=== PATIENT | male | born 1950 | race Caucasian/White ===

== ENCOUNTER 2024-01-15 09:59 | Inpatient (IN) | payer OTHER ==
[~2024-01-15] VITALS: Ht 144.8 cm; Wt 92.3 kg
[2024-01-15] VITALS (12 sets, daily range): BP systolic 107–169; BP diastolic 52–70
[2024-01-15] MEDS ORDERED: MethylPREDNISolone Sod Succ 125 MG Vial IV ONE (10:25)
[2024-01-15] MEDS ORDERED: Ipratropium/Albuterol SulF 2.5-0.5MG/3 ML Amp INH ONE (10:25)
[2024-01-15] MEDS ORDERED: Albuterol 2.5 MG/3 ML VIAL INH SCH (10:25)
[2024-01-15 10:39] LABS: BASOPHILS ABSOLUTE AUTO 0.09 K/mm3 (0.00-0.23); BASOPHILS PERCENT AUTO 1 % (0-2); EOSINOPHILS ABSOLUTE AUTO 0.06 K/mm3 (0.00-0.68); EOSINOPHILS PERCENT AUTO 0 % (0-6); Hematocrit 54.1 % (37.0-53.0); Hemoglobin 16.9 g/dL (13.5-17.5); IMMATURE GRAN ABSOLUTE AUTO 0.22 K/mm3 (0.00-0.10); IMMATURE GRAN PERCENT AUTO 2 % (0-1); LYMPHOCYTES ABSOLUTE AUTO 1.61 K/mm3 (0.84-5.20); LYMPHOCYTES PERCENT AUTO 11 % (21-46); MONOCYTES ABSOLUTE AUTO 1.59 K/mm3 (0.16-1.47); MONOCYTES PERCENT AUTO 11 % (4-13); Mean Corpuscular HGB 29.2 pg (26.0-34.0); Mean Corpuscular HGB Conc 31.2 g/dL (31.5-36.5); Mean Corpuscular Volume 93 fL (80-100); Mean Platelet Volume 10.4 fL (9.1-12.4); NEUTROPHILS ABSOLUTE AUTO 11.14 K/mm3 (1.96-9.15); NEUTROPHILS PERCENT AUTO 76 % (41-73); NRBC ABSOLUTE 0.06 K/mm3 (0.00-0.02); NRBC Auto 0.4 /100 WBC (0.0-0.2); Platelet Count 291 K/mm3 (150-400); RDW Coefficient Variation 13.4 % (11.7-14.2); RDW Standard Deviation 46.4 fL (35.1-46.3); Red Blood Cell Count 5.79 M/mm3 (4.30-5.90); White Blood Cell Count 14.71 K/mm3 (4.00-11.30)
[2024-01-15 10:49] LABS: PCO2 Venous 55.4 mmHg (38-42); pH Blood Venous 7.38 (7.34-7.37)
[2024-01-15 10:50] LABS: Base Excess Venous 7.5 mmol/L; Bicarbonate Venous 29.1 mmol/L (24.0-30.0)
[2024-01-15 11:14] LABS: Influenza A, PCR NEGATIVE (NEGATIVE); Influenza B, PCR NEGATIVE (NEGATIVE); Resp Syncytial Virus, PCR NEGATIVE (NEGATIVE); SARS-Cov-2 (COVID-19) PCR, MMC NEGATIVE (NEGATIVE)
[2024-01-15] MEDS ORDERED: Azithromycin 500 MG in NS 250 ML IV ONE (11:20)
[2024-01-15] MEDS ORDERED: CefTRIAXone Sodium 1,000 MG in NS 50 ML IV ONE (11:20)
[2024-01-15] MEDS ORDERED: NS 1,000 ML IV SCH (11:25)
[2024-01-15 12:24] LABS: Albumin, Blood 2.6 g/dL (3.4-5.0); Albumin/Globulin Ratio 0.6 (0.8-1.8); Bilirubin, Total 0.4 mg/dL (0.1-1.0); Bun/Creatinine Ratio 51.2 (12.0-20.0); Calcium, Blood 8.7 mg/dL (8.5-10.1); Creatinine, Blood 0.65 mg/dL (0.60-1.20); Globulin, Blood 4.3 g/dL (2.2-4.0); Magnesium, Blood 2.3 mg/dL (1.6-2.4); Potassium, Blood 4.3 mmol/L (3.5-5.5); Total Protein, Blood 6.9 g/dL (6.4-8.2)
[2024-01-15] MEDS ORDERED: Albuterol 2.5 MG/3 ML VIAL INH PRN (12:50)
[2024-01-15] MEDS ORDERED: Ipratropium/Albuterol SulF 2.5-0.5MG/3 ML Amp INH SCH (12:50)
[2024-01-15] MEDS ORDERED: Acetaminophen 325 MG TABLET PO PRN (12:50)
[2024-01-15] MEDS ORDERED: Ampicillin Sod/Sulbactam Sod 3 GM in NS 100 ML IV SCH (13:00)
[2024-01-15] MEDS ORDERED: Lactated Ringer's 1,000 ML IV SCH (13:00)
--- NOTE | 2024-01-15 13:41 | NUR ---
REPORT RECIEVED FROM ED NURSE ERIK AT 1340.
[2024-01-15] MEDS ORDERED: METF500 PO (14:04)
[2024-01-15] MEDS ORDERED: ATOR20 PO (14:05)
[2024-01-15] MEDS ORDERED: LISI20 PO (14:05)
[2024-01-15] MEDS ORDERED: TAMS.4ER PO (14:06)
[2024-01-15] MEDS ORDERED: FURO40 PO (14:07)
[2024-01-15] MEDS ORDERED: Vitamin D1000 UNI1 PO (14:07)
[2024-01-15] MEDS ORDERED: ALBU90OI INH (14:08)
[2024-01-15 14:14] LABS: Base Excess Venous 5.1 mmol/L; Bicarbonate Venous 26.1 mmol/L (24.0-30.0); PCO2 Venous 74 mmHg (38-42); pH Blood Venous 7.24 (7.34-7.37)
--- NOTE | 2024-01-15 14:31 | NUR ---
ARRIVAL TO PCU patient arrived to pcu at 1358 and color finisher in room transporting to pcu bed. patient is alert and oriented x4. perrla. patient denies chest pain/pressure, pain, or shortness of breath. patient on 11l oxymizer with spo2 >90%. tele sinus tach 110-120s. patient vbg came back and was critically high ph at 7.24. this rn called md haley, orders being placed. this rn did admit and med rec. this rn informed primary rn, val landin, of updates while he was on lunch.
--- NOTE | 2024-01-15 15:58 | NUR ---
THIS RN TO PT ROOM AT 1540 D/T PT OFF TELE. UPON ENTERNING ROOM PT WAS ALREADY IN BATHROOM WITH IV PUMP SITTING JUST OUTSIDE OF DOOR. PT'S O2 WAS SITTING ON FLOOR JUST OUT SIDE OF BATHROOM. URINE NOTED TO BE ON FLOOR TRAILING FROM FAR SIDE OF ROOM TO BATHROOM. PT ASKED IF HE WAS OK, PT ANSWERED "YEAH, I JUST NEEDED TO GO TO THE BATHROOM." PT REMINDED THAT HE NEEDED TO CALL FOR ASSISTANCE WHEN GETTING UP TO HELP MANAGE OXYGEN LINES AND IV LINES. PT RESPONDED "OH YEAH, SORRY. I HAD TO GO." OXYGEN TRANSPORT NURSE APPLIED AND O2 REAPPLIED TO PT ALONG WITH SPO2 MONITOR. ON MONITOR PT SATS IN THE HIGH 40'S, PT REPORTED SLIGHT SOB JSUT BEFORE O2 WAS REAPPLIED. ENVIRONMENTAL SERVICES CONTACTED TO CLEAN UP FLOOR. PT EDUCATED AGAIN ON FALL RISKS AND THAT HE NEEDS TO CALL FOR ASSISTNCE IN ROOM, PT VERBALIZED UNDERSTANDING. EDUCATIONAL RESOURCE COORDINATOR IN DOOR WAY WAITING FOR TO CALL FOR ASSISTANCE. THIS RN NOTIFIED BY GUEST SPECIALIST THAT PT SATS DOWN TO HIGH 70'S AND STILL OFF TELE. THIS RN TO PT ROOM TO ASSESS AGAIN AT 1658. PT STILL SITTING ON TOILET. O2 AGAIN SITTING ON GROUND AND TELE BOW WITH STICKERS SITTING ON FLOOR. PT INSTRUCTED TO KEEP O2 ON AND INFORMED PT THAT HE WILL NEED T KEEP TELE BOX AND STICKERS ON TO MONITOR PT'S HEART. PT AGAIN VERBALIZED UNDERSTANDING. EDUCATIONAL RESOURCE COORDINATOR INFORMED THAT PT WAS INSTRUCTED TO USE PULL STRING IN BATHROOM AND ASKED EDUCATIONAL RESOURCE COORDINATOR TO REMAIN IN PT ROOM.
--- NOTE | 2024-01-15 17:20 | NUR ---
UPDATE AT ROUGHLY 1700, PT SATS DOWN TO 70'S. WALTER RN IN PT ROOM AND INCREASED OXYMIZER TO 15L, SATS REMAINED IN 70'S. RN NOTIFIED THIS RN. THIS RN TO ROOM. PT REPOSITIONED AND RT CONTACTED FOR BIPAP RT TO ROOM NON-REBREATHER BEING APPLIED. RT SETUP BIPAP FOR PT AND APPLIED, SATS UP TO THE 90'S WITH BIPAP SETTINGS 14/6 80%.
[2024-01-15] MEDS ORDERED: MethylPREDNISolone Sod Succ 125 MG Vial IV SCH (18:00)
--- NOTE | 2024-01-15 18:06 | NUR ---
NOTIFIED OF THIS RN'S PREVIOUS NOTES STATING PT HAS BEEN IMPUSLIVE AND PULLING OFF OXYGEN. MD NOTIFIED THAT PT HAS BEEN PLACED ON BIPAP BUT AALSO HAS BECOME MORE CONFUSED AND PULLING BIPAP OFF AFTER TELLING STAFF THEY CAN REAPPLY BIPAP. TO SEE PT BEFORE SHIFT CHANGE.
--- NOTE | 2024-01-15 18:54 | NUR ---
PT GIVEN ONE TIME DOSE ATIVAN AND GIVEN 1800 MEDS PER ODER. PT ABLE REST AFTER RECIEVING ATIVAN AND HAS KEPT NON-REBREATHER ON AT THIS TIME.
[2024-01-15] MEDS ORDERED: LORazepam 2 MG/ML 1ML Injection IV PRN (19:00)
[2024-01-15] MEDS ORDERED: LORazepam 2 MG/ML 1ML Injection IV ONE ×2 (19:00→21:40)
[2024-01-15] MEDS ORDERED: Lactobacil 2-S.Thermo-Bifido 1 1 Cap PO SCH (21:00)
--- NOTE | 2024-01-15 21:45 | NUR ---
PT TRANSFER TO ICU PATIENT NONCOMPLIANT WITH BIPAP, DESATTING TO LOW 80'S. GETTING COMBATIVE WITH STAFF WE ATTEMPTED TO MAINTAIN CONTINUOUS MONITORING AND BIPAP. PATIENT APPEARS CYANOTIC WITH FINGERS, EARS, AND LIPS TURNING PURPLE. REPORT CALLED TO VENTURA IN ICU AND PATIENT MOVED TO ICU 10. IS AT BEDSIDE, UPDATED TO SITUATION BY RN.
[2024-01-15] MEDS ORDERED: Albuterol 2.5 MG/3 ML VIAL INH ONE (22:00)
[2024-01-15 22:03] LABS: PCO2 Arterial > 105 mmHg (35-45); pH Blood Arterial 7.17 (7.35-7.45)
--- NOTE | 2024-01-15 22:44 | NUR ---
PATIENT TO ICU 10 FROM PCU 11 AT 2126. PATIENT COMBATIVE, SWINGING AT STAFF, CONFUSED AND APPEARS HYPOXIC, FACE, EARS AND FINGERS ARE PURPLE. SP02 90% ON 15L NRB, LS COARSE IN RIGHT SIDE AND DIM IN THE LEFT SIDE. CHEST X-RAY DONE. NEW IV STARTED. PATIENT MEDICATED FOR AGITATION, ATIVAN GIVEN AND PRECEDEX STARTED. PATIENT NOW SEDATED AND ON BIPAP. ABG DONE AND CRITICALS CALLED TO HOSPITALIST. PATIENT INCONTINENT OF BLADDER ATTENDS IN PLACE. AT BEDSIDE.
[2024-01-15] MEDS ORDERED: NS 250 ML IV PRN (22:55)
[2024-01-16] VITALS (41 sets, daily range): BP systolic 90–179; BP diastolic 39–157
[2024-01-16 00:19] LABS: PCO2 Venous 85.9 mmHg (38-42); pH Blood Venous 7.25 (7.34-7.37)
[2024-01-16 00:20] LABS: Base Excess Venous 10.2 mmol/L; Bicarbonate Venous 29.8 mmol/L (24.0-30.0)
[2024-01-16] MEDS ORDERED: Piperacillin/Tazobactam Sod 3.375 GM in NS 100 ML IV SCH ×2 (00:45→07:00)
[2024-01-16] MEDS ORDERED: Ipratropium/Albuterol SulF 2.5-0.5MG/3 ML Amp INH SCH (02:20)
[2024-01-16 04:50] LABS: Base Excess Venous 11.2 mmol/L; Bicarbonate Venous 31.3 mmol/L (24.0-30.0); PCO2 Venous 75.6 mmHg (38-42)
[2024-01-16 04:57] LABS: BASOPHILS ABSOLUTE AUTO 0.05 K/mm3 (0.00-0.23); BASOPHILS PERCENT AUTO 0 % (0-2); EOSINOPHILS ABSOLUTE AUTO 0.04 K/mm3 (0.00-0.68); EOSINOPHILS PERCENT AUTO 0 % (0-6); Hematocrit 47.8 % (37.0-53.0); Hemoglobin 14.7 g/dL (13.5-17.5); IMMATURE GRAN ABSOLUTE AUTO 0.25 K/mm3 (0.00-0.10); IMMATURE GRAN PERCENT AUTO 2 % (0-1); LYMPHOCYTES ABSOLUTE AUTO 0.76 K/mm3 (0.84-5.20); LYMPHOCYTES PERCENT AUTO 6 % (21-46); MONOCYTES ABSOLUTE AUTO 0.98 K/mm3 (0.16-1.47); MONOCYTES PERCENT AUTO 7 % (4-13); Mean Corpuscular HGB 29.3 pg (26.0-34.0); Mean Corpuscular HGB Conc 30.8 g/dL (31.5-36.5); Mean Corpuscular Volume 95 fL (80-100); Mean Platelet Volume 10.2 fL (9.1-12.4); NEUTROPHILS ABSOLUTE AUTO 11.41 K/mm3 (1.96-9.15); NEUTROPHILS PERCENT AUTO 85 % (41-73); NRBC ABSOLUTE 0.05 K/mm3 (0.00-0.02); NRBC Auto 0.4 /100 WBC (0.0-0.2); Platelet Count 255 K/mm3 (150-400); RDW Coefficient Variation 13.4 % (11.7-14.2); RDW Standard Deviation 47.5 fL (35.1-46.3); Red Blood Cell Count 5.01 M/mm3 (4.30-5.90); White Blood Cell Count 13.49 K/mm3 (4.00-11.30)
--- NOTE | 2024-01-16 05:13 | NUR ---
SHIFT SUMMARY PATIENT ALERT AND ORIENTED X4 NOW, WEARING BIPAP AND COMPLIANT. GIVEN A BREAK FROM BIPAP FOR A DRINK OF WATER AND MAINTAINED SP02 97%. BIPAP 11/03 FI02 70% RATE 22. LS DIM IN LEFT LUNG. HR SR 80s, BP STABLE. CONTINENT OF URINE, UA SENT. TITRATING PRECEDEX DOWN. CALL LIGHT IN REACH
[2024-01-16 05:25] LABS: Albumin, Blood 2.2 g/dL (3.4-5.0); Albumin/Globulin Ratio 0.6 (0.8-1.8); Bilirubin, Total 0.2 mg/dL (0.1-1.0); Bun/Creatinine Ratio 44.2 (12.0-20.0); Calcium, Blood 8.4 mg/dL (8.5-10.1); Creatinine, Blood 0.7 mg/dL (0.60-1.20); Globulin, Blood 3.8 g/dL (2.2-4.0); Magnesium, Blood 2.3 mg/dL (1.6-2.4); Potassium, Blood 4.9 mmol/L (3.5-5.5); Thyroid Stimulating Hormone 0.346 uIU/mL (0.360-4.800)
[2024-01-16] MEDS ORDERED: Azithromycin 500 MG in NS 250 ML IV SCH (09:00)
[2024-01-16] MEDS ORDERED: Enoxaparin 40 MG/0.4 ML SYR SC SCH (09:00)
[2024-01-16] MEDS ORDERED: Multivitamins-Minerals Liquid 15 ML Oral Syringe PO SCH (16:15)
[2024-01-16] MEDS ORDERED: Thiamine HCl 100 MG Tab PO SCH (16:15)
--- NOTE | 2024-01-16 17:11 | NUR ---
SHIFT SUMMARY PT DID WELL THROUGHOUT THE SHIFT. PT HAS REMAINED AWAKE, ALERT, AND ORIENTED. PT HAS REMAINED OFF BIPAP ON HIFLOW NC MOST OF THIS SHIFT. HIFLOW NC TITRATED DOWN TO 7L 02 AT THIS TIME. PT DENIES SOB AT REST. VITAL SIGNS HAVE REMAINED STABLE. PT TAKING IN MORE PO INTAKE THROUGHOUT THE DAY WITH IMPROVED APPETITE. PG TO LAWANDA C/D/I WITH NS INFUSING TKO. PT WITH ATTENDS IN PLACE, BUT IS ABLE TO USE URINAL TO VOID WITH ASSISTANCE. PT ABLE TO SHIFT SELF IN BED FOR COMFORT. PT SPOUSE AT BEDSIDE MOST OF THIS SHIFT. WILL CONTINUE TO MONITOR AND REPORT OFF TO ONCOMING RN.
[2024-01-16] MEDS ORDERED: Atorvastatin 10 MG Tab PO SCH (21:00)
[2024-01-17] VITALS (16 sets, daily range): BP systolic 115–157; BP diastolic 52–111
[2024-01-17 04:23] LABS: Hematocrit 45.5 % (37.0-53.0); Hemoglobin 14.2 g/dL (13.5-17.5); Mean Corpuscular HGB 29.7 pg (26.0-34.0); Mean Corpuscular HGB Conc 31.2 g/dL (31.5-36.5); Mean Corpuscular Volume 95 fL (80-100); Mean Platelet Volume 10.3 fL (9.1-12.4); NRBC ABSOLUTE 0.03 K/mm3 (0.00-0.02); NRBC Auto 0.2 /100 WBC (0.0-0.2); Platelet Count 265 K/mm3 (150-400); RDW Coefficient Variation 13.4 % (11.7-14.2); RDW Standard Deviation 46.9 fL (35.1-46.3); Red Blood Cell Count 4.78 M/mm3 (4.30-5.90); White Blood Cell Count 16.63 K/mm3 (4.00-11.30)
[2024-01-17 04:47] LABS: Magnesium, Blood 2.3 mg/dL (1.6-2.4)
[2024-01-17 04:48] LABS: Bun/Creatinine Ratio 43.7 (12.0-20.0); Calcium, Blood 8.7 mg/dL (8.5-10.1); Creatinine, Blood 0.71 mg/dL (0.60-1.20); Phosphorus, Blood 2.5 mg/dL (2.5-4.9); Potassium, Blood 4.9 mmol/L (3.5-5.5)
[2024-01-17 05:18] LABS: PCO2 Arterial 61.7 mmHg (35-45); PO2 Arterial 78.8 mmHg (80-100); pH Blood Arterial 7.39 (7.35-7.45)
--- NOTE | 2024-01-17 05:43 | NUR ---
SHIFT SUMMARY ASSUMED CARE OF PT AT 1900. PT IS A/OX4. HEART OUNDS REGULAR. LUNG SOUNDS WHEEZES AND TIGHT. PT ON 7L HIGH FLOW. PT EDUCATED ABOUT WEARING BIPAP MASK T/O THE NOC. PT AGREED TO WEARING MASK BUT TOOK A BREAK FROM 0230 TO 0400. PT USED URINAL IN BED. CAN REPOSITION SELF. NO ACUTE EVENTS.
[2024-01-17] MEDS ORDERED: Omeprazole 20 MG CapCR PO SCH (06:00)
[2024-01-17] MEDS ORDERED: Nicotine 14 MG PATCH TOP SCH (09:00)
[2024-01-17] MEDS ORDERED: Furosemide 40 MG Tab PO SCH (09:00)
[2024-01-17] MEDS ORDERED: Lisinopril 20 MG Tab PO SCH (09:00)
[2024-01-17] MEDS ORDERED: Cholecalciferol 1000 Unit Tablet (=25MCG) PO SCH (09:00)
[2024-01-17] MEDS ORDERED: Tamsulosin HCl 0.4 MG Cap PO SCH (09:00)
--- NOTE | 2024-01-17 10:21 | NUR ---
CARE NOTE PT IS ALERT AND ORIENTED X 4. SPO2 CURRENTLY MAINTAINED >95% VIA 8L HFNC. WHEN THIS RN WENT INTO ROOM AT APPROX. 1020, PT APPEARED TO BE SLEEPING. THIS RN ENCOURAGED PT TO WEAR BIPAP WHILE SLEEPING BUT HE DECLINED TO DO SO. THIS RN EDUCATED PT AND HIS SPOUSE REGARDING IMPORTANCE OF WEARING BIPAP WHILE SLEEPING AND HE WAS AGREEABLE TO WEARING BIPAP FOR NOC USE. CALL LIGHT IS W/IN REACH.
--- NOTE | 2024-01-17 13:25 | NUR ---
assumption of care patient arrived while this rn was on lunch and break nurse aubrey el settled the patient into the room. patient is alert and oriented x4. neuro is intact. perrla. denies pain,chest pain/pressure or shortness of breath at rest. endorses shortness of breath with exertion. see shift assessment for further detials. vital signs stable. tele sinus rhythm 90s. oriented to room and call light. denies any needs at this time
--- NOTE | 2024-01-17 18:34 | NUR ---
shift summary patient neuro remains inact. vital remain stable. no acute changes. plan of care remains up to date.
[2024-01-18 03:39] LABS: Hematocrit 47.9 % (37.0-53.0); Mean Corpuscular HGB 29.4 pg (26.0-34.0); Mean Corpuscular HGB Conc 31.3 g/dL (31.5-36.5); Mean Corpuscular Volume 94 fL (80-100); Mean Platelet Volume 10.1 fL (9.1-12.4); NRBC ABSOLUTE 0.02 K/mm3 (0.00-0.02); NRBC Auto 0.1 /100 WBC (0.0-0.2); Platelet Count 277 K/mm3 (150-400); RDW Coefficient Variation 13.2 % (11.7-14.2); RDW Standard Deviation 45.8 fL (35.1-46.3); Red Blood Cell Count 5.11 M/mm3 (4.30-5.90); White Blood Cell Count 16.18 K/mm3 (4.00-11.30)
[2024-01-18 03:57] LABS: Magnesium, Blood 2.4 mg/dL (1.6-2.4)
[2024-01-18 03:58] LABS: Bun/Creatinine Ratio 50.8 (12.0-20.0); Calcium, Blood 8.8 mg/dL (8.5-10.1); Creatinine, Blood 0.73 mg/dL (0.60-1.20); Phosphorus, Blood 3.2 mg/dL (2.5-4.9); Potassium, Blood 5.3 mmol/L (3.5-5.5)
[2024-01-18 04:00] VITALS: BP 144/73
--- NOTE | 2024-01-18 05:12 | NUR ---
SHIFT SUMMARY ASSUMED CARE OF PT AT 1900. PT IS A/OX4. HEART SOUNDS REGULAR. LUNG SOUNDS DIMINISHED AND COURSE AT BASES. PT WORE 7L NC T/O THE NOC AND WORE BIPAP FROM 2129- 299. PT USED URINAL IN BED. PT REPOSITIONED SELF. PT HAD NO NEW COMPLAINTS AND SLEPT T/O THE NOC
[2024-01-18 07:32] VITALS: BP 161/70
--- NOTE | 2024-01-18 10:47 | NUR ---
DR. KULKARNI AT BEDSIDE AND SHOWED THE PT'S VERY DARK GREEN-BLACK LOOSE STOOLS. HGB & HCT STABLE. WE WILL CONTINUE TO MONITOR H&H. NO FURTHER ORDERS AT THIS TIME .
[2024-01-18 11:34] VITALS: BP 143/63
[2024-01-18 15:15] VITALS: BP 154/64
--- NOTE | 2024-01-18 16:20 | NUR ---
SHIFT SUMMARY THE PT IS A&OX4, CALLS APPROPRIATELY, AND CAN MAKE HIS NEEDS KNOWN. THE PT IS A Q2 TURN, 1P TX W/ GB AND FWW, AND HE HAS BEEN ABLE TO GET UP TO THE CHAIR AND BSC TODAY. HE IS ABLE TO USE THE URINAL AT BEDSIDE, BUT IS HAVING SOME ACCIDENTS WITH STOOLS. HIS STOOL IS A DARK BLACK-GREEN COLOR AND LOOSE. DR. KULKARNI AWARE. ON TELE HE HAS BEEN SR 80'S-90'S, BP STABLE. HE HAS BEEN TITRAITED FROM 7L HFNC TO 3-4L NC. WHEN THE PT WORKED WITH PHYSICAL THERAPY HE DID DESATURATE TO 85% BUT WAS ABLE TO RECOVER AFTER ABOUT 10 SEC'S. THE PT STATES HE IS FEELING ALOT BETTER THEN HE HAS, AND SEE GREAT IMPROVEMENT FROM YESTERDAY. NO ACUTE EVENTS. SEE NOTES FOR UPDATES.
[2024-01-18 21:05] VITALS: BP 147/65
--- NOTE | 2024-01-18 22:22 | NUR ---
ASSUMPTION OF CARE: PATIENT IS ALERT ADN ORIENTED X 4, ABLE TO MAKE NEEDS KNOWN, COOPERATIVE, PLEASANT. REPOSITIONED, INFUSING TKO TO POWERGLIDE. SPO2 88 - 93 ON 3L VIA NC, RESISTENT TO WEAR BIPAP AT THIS TIME, NONPRODUCTIVE COUGH NOTED. DAY RN SENT SPUTUM SAMPLE. PATIENT AFEBRIE VSS, DENIES CHEST PAIN PRESSURE OR INCREASED SOB AT REST. NO ACUTE CONCERNS. DID EDUCATE ABOUT CODE STATUS AND TREATMENTS ENTAILED. PATIENT ENDORSES FULL CODE STATUS.
[2024-01-18 23:18] VITALS: BP 164/59
[2024-01-19 03:12] VITALS: BP 146/77
[2024-01-19 03:58] LABS: Hematocrit 44.1 % (37.0-53.0); Hemoglobin 14.1 g/dL (13.5-17.5); Mean Corpuscular HGB 29.9 pg (26.0-34.0); Mean Corpuscular Volume 93 fL (80-100); Mean Platelet Volume 10.5 fL (9.1-12.4); Platelet Count 276 K/mm3 (150-400); RDW Coefficient Variation 13.2 % (11.7-14.2); RDW Standard Deviation 45.2 fL (35.1-46.3); Red Blood Cell Count 4.72 M/mm3 (4.30-5.90); White Blood Cell Count 16.52 K/mm3 (4.00-11.30)
[2024-01-19 04:17] LABS: Bun/Creatinine Ratio 49.3 (12.0-20.0); Calcium, Blood 8.4 mg/dL (8.5-10.1); Creatinine, Blood 0.67 mg/dL (0.60-1.20); Potassium, Blood 4.3 mmol/L (3.5-5.5)
--- NOTE | 2024-01-19 06:24 | NUR ---
EOS: CHANGES FROM ASSUMPTION PATIETN IS NOW ON 4L AFTER REPOSITIONING, ATTENDS AND GOWN CHANGE. PATIETN WITH DARK GREEN BM, AND WHAT APPEARED TO BE SOME MINOR BLADDER DISTENTION, BLADDER SCAN REVEALED APPROXIMATELY 364. PATIENT HAS BEEN VOIDING 100-150 AT A TIME, KNOWN BPH. WILL PASS ON TO DAY RN. EDUCATED ABOUT POTENTIAL NEED FOR ALTERNATIVE URINATING, HE HE HAS BEEN USING URINAL IN THE BED. PATIENT DOES NOT FEEL INCREASED SOB. SOME MINOR SHAKINESS NOTED.
[2024-01-19 07:37] VITALS: BP 148/67
[2024-01-19] MEDS ORDERED: PredniSONE 20 MG Tab PO SCH (09:00)
[2024-01-19] MEDS ORDERED: Ventolin5 MG/1 ML INH (11:34)
[2024-01-19] MEDS ORDERED: MULTIVITAM12 MG/15 M PO (11:39)
[2024-01-19] MEDS ORDERED: PROBIOTIC1 EA13 PO (11:40)
[2024-01-19] MEDS ORDERED: B-1100 MG PO (11:40)
[2024-01-19] MEDS ORDERED: AMOCLA875 PO (11:41)
[2024-01-19] MEDS ORDERED: Prednisone10 MG PO (11:42)
[2024-01-19 12:41] VITALS: BP 125/57
[2024-01-19 15:44] VITALS: BP 151/70
--- NOTE | 2024-01-19 17:16 | NUR ---
SHIFT SUMMARY: PT HAS BEEN A&Ox4, COOPERATIVE W/CARE, ABLE TO MAKE NEEDS KNOWN. PT DENIES SOB AT REST. O2 SATS >89% ON 3 L/MIN VIA NC AT REST, 6 L/MIN FOR ACTIVITY. PT ENDORSES DYSPNEA W/EXERTION. PT DENIES CP, SR ON MONITOR W/RATE MOSTLY 80s. PT WORKS W/PT TODAY, HAS GOTTEN UP TO CHAIR FOR MEAL. PT HAS BEEN VOIDING IN URINAL OR BSC. ONE EPISODE OF LOOSE DARK BROWN/GREEN STOOL, PT DENIES CHANGE FROM YESTERDAY'S STOOL, PROVIDER AWARE. AT THIS TIME, PLAN IS FOR DISCHARGE HOME, WAITING FOR HOME O2 ORDER APPROVAL AND DELIVERY. IV ABX CONTINUE TO INFUSE PER ORDERS. PT RESTING IN BED W/CALL LIGHT IN REACH. WILL CONTINUE TO MONITOR AND TREAT ACCORDINGLY UNTIL CHANGE OF SHIFT.
[2024-01-19] MEDS ORDERED: Ipratropium/Albuterol SulF 2.5-0.5MG/3 ML Amp INH SCH (17:35)
[2024-01-19 20:39] VITALS: BP 157/72
[2024-01-20 00:31] VITALS: BP 158/73
[2024-01-20 04:38] VITALS: BP 154/84
--- NOTE | 2024-01-20 06:21 | NUR ---
End of shift note Pt is pleasant and cooperative with care. Pt has rested well overnight. Pt has refused BiPAP. Pt remains on 3L O2 at rest. Pt reports that he still feels weak but feels like he would be able to manage with family when he goes home. Pt is able to make needs known, call light is within reach.
[2024-01-20 07:48] VITALS: BP 149/81
[2024-01-20 15:35] VITALS: BP 158/70
--- NOTE | 2024-01-20 17:49 | NUR ---
SHIFT SUMMARY: PT A&O X4. PLEASANT AND COOPERATIVE WITH CARE. PT C/O 7/10 PAIN IN LOWER BACK THIS AM AND AFTERNOON. PRN TYLENOL EFFECTIVE FOR PAIN MANAGEMENT. CASE MANAGEMENT REACHED OUT TO DC FOR HOME 02 AND NEB TREATMENTS. PLAN FOR PT TO FINAL CIGAR AND BOX EXAMINER 02 TANK FROM DC TOMORROW AND BRING TO HOSPITAL. PT WILL THEN HAVE APPOINTMENT AT DC AROUND 1300 TO 02 EDUCATION. PT CURRENTLY ON 3L MAINTAINING SATS >90%. IV ABX INFUSING W/O COMPLICATIONS. CALL LIGHT IN REACH. BED IN LOWEST POSITION.
[2024-01-20 19:19] VITALS: BP 151/65
--- NOTE | 2024-01-20 20:42 | NUR ---
ASSUMPTION OF CARE AFTER RECEIVING REPORT FROM DAY RN, THIS RN ASSUMED CARE AT APPROX 1915. PATIENT ALERT AND ORIENTED X4. PERRLA. MOVES ALL EXTREMITIES WITH GENERALIZED WEAKNESS T/O. IS A ONE PERSON ASSIST WITH FWW. TREMOR TO BUE - REPORTS BASELINE. TELEMETRY SHOWING SINUS TACH 100s. BP STABLE. DENIES CHEST PAIN, PRESSURE. ON 3L VIA NC, SATs >90%. DENIES SHORTNESS OF BREATH AT REST, RESPIRATIONS EVEN, UNLABORED. REPORTS 6/10 LOWER BACK PAIN - MEDICATED PER EMAR WITH PO TYLENOL. REPOSITIONS HIMSELF INDEPENDENTLY IN BED. USES URINAL INDEPENDENTLY. CALL LIGHT IN REACH.
--- NOTE | 2024-01-21 03:46 | NUR ---
REPORT GIVEN TO BENJI MCFARLAND TO ASSUME CARE ON MEDICAL FLOOR
--- NOTE | 2024-01-21 04:00 | NUR ---
ASSUMPTION OF CARE. PT TRANSFERED FROM PCU TO MEDICAL ROOM 341. PT ORIENTED TO ROOM AND DENIES CONCERNS AT THIS TIME. REPORT RECEIVED PRIOR TO ARRIVAL FROM ZARINA León RN. CALL LIGHT IN REACH.
[2024-01-21 04:14] VITALS: BP 164/81
[2024-01-21 07:22] VITALS: BP 159/81
--- NOTE | 2024-01-21 08:03 | NUR ---
CALL FROM TELE: PT HAD SHORT RUN OF SVT IN 150s. PRIMARY RN NOTIFIED.
--- NOTE | 2024-01-21 08:15 | NUR ---
SHIFT SUMMARY NOC. PT A/O X4. PT ON 3 L VIA N/C. PT VOIDING SMALL AMOUNTS OF URINE. PT ON TELEMETRY. DENIES SOB OR CP. PT RESTING WITH CALL LIGHT IN REACH.
[2024-01-21] MEDS ORDERED: AMOCLA875 PO (11:11)
[2024-01-21 11:15] LABS: Magnesium, Blood 2.4 mg/dL (1.6-2.4)
[2024-01-21 11:16] LABS: Phosphorus, Blood 2.3 mg/dL (2.5-4.9)
[2024-01-21] MEDS ORDERED: K-Phos Origina500 MG PO (12:09)
[2024-01-21] MEDS ORDERED: Potassium Phosphate,Monobasic 500 MG Tablet PO STA (12:28)
--- NOTE | 2024-01-21 12:51 | NUR ---
SHIFT/DISCHARGE SUMMARY: PATIENT A/OX4, PLEASANT AND COOPERATIVE c CARE. PATIENT DENIES CP/PRESSURE, SOB, N/V AND DIZZINESS. AT AROUND 0700 PATIENT HAD OT EPISODE OF SVT HR 150'S-160'S BPM AND BOUNCED BACK TO 80'SBPM, DR. KULKARNI NOTIFIED WITH THIS ISSUE. PATIENT HAS NO EPISODE ON TELE SINCE THEN, SR HR IN THE 80'S-90'S BPM. PATIENT ON 3L O2 VIA NC c SPO2 ABOVE 90%. PATIENT HAS GREAT APPETITE, CONTINENT OF BOWEL/BLADDER, USES URINAL IN BED AND 1 ASSIST/FWW TO BSC. PATIENT WORK c OT THIS AM, DID WELL. PIV AND POWERGLIDE DC'D. PATIENT DISCHARGE HOME c HH SERVICES. DISCHARGE INSTRUCTIONS PACKET GIVEN TO PATIENT. EDUCATE PATIENT/SPOUSE AT BEDSIDE REGARDING ADMITTING DX'S OF ACUTE RESP FAILURE, S/S, TX, NEW PRESCRIBED RX, HOME O2, AND TO F/U c PCP. PATIENT AND SPOUSE VERBALIZED UNDERSTANDING AND NO FURTHER QUESTIONS. RX WAS FAXED TO [facility]IENT [facility]. ALL PATIENT PERSONAL BELONGINGS WERE SENT HOME c THE PATIENT. PATIENT LEFT THE ROOM AT 1228 AND WAS TRANSPORTED VIA WHEELCHAIR BY [facility] TO PATIENT ENTRANCE.
== END 2024-01-21 12:28 | disposition home health service (06) | DRG 871 ==
LOC: ER 09:59 → ICUE 12:44 → PCU 12:44 → ICUE 21:33 → PCU 01-17 12:54 → MEDS 01-21 03:53
PROVIDERS: Internal Medicine; Nurse Practitioner Acute Care; Student in an Organized Health Care Education/Training Program; ADMIT Student in an Organized Health Care Education/Training Program
PROC: 4A133R1 Monitoring of Arterial Saturation, Peripheral, Percutaneous Approach (ICD-10-PCS; principal; 2024-01-15)
PROC: 3E03329 Introduction of Other Anti-infective into Peripheral Vein, Percutaneous Approach (ICD-10-PCS; 2024-01-15)
PROC: 5A09357 Assistance with Respiratory Ventilation, Less than 24 Consecutive Hours, Continuous Positive Airway Pressure (ICD-10-PCS; 2024-01-15)
PROC: 5A0935A Assistance with Respiratory Ventilation, Less than 24 Consecutive Hours, High Flow/Velocity Cannula (ICD-10-PCS; 2024-01-15)
DX: A41.9 Sepsis, unspecified organism (principal); G93.41 Metabolic encephalopathy; J18.9 Pneumonia, unspecified organism; J69.0 Pneumonitis due to inhalation of food and vomit; J96.01 Acute respiratory failure with hypoxia; J96.02 Acute respiratory failure with hypercapnia; J98.11 Atelectasis; J44.1 Chronic obstructive pulmonary disease with (acute) exacerbation; J44.0 Chronic obstructive pulmonary disease with (acute) lower respiratory infection; I47.10 Supraventricular tachycardia, unspecified; T17.990A Other foreign object in respiratory tract, part unspecified in causing asphyxiation, initial encounter; F17.210 Nicotine dependence, cigarettes, uncomplicated; E78.5 Hyperlipidemia, unspecified; I10 Essential (primary) hypertension; N40.0 Benign prostatic hyperplasia without lower urinary tract symptoms; F12.90 Cannabis use, unspecified, uncomplicated; E83.39 Other disorders of phosphorus metabolism
CPT/HCPCS: 0241U; 36415; 36600; 71045; 71260; 80048; 80053; 82803; 82947; 83036; 83605; 83735; 83880; 84100; 84145; 84443; 84484; 85025; 85027; 87040; 87070; 87205; 87449; 93005; 93010; 94640; 94644; 94660; 94664; 94760; 94761; 94762; 96365-59; 96375-59; 97110; 97162; 97166; 97530; 97535; 99285-25; A9270; C1751; J0295; J0456; J0696; J1650; J2060; J2543; J2919; J7030; J7050; J7512; Q9967

== ENCOUNTER 2024-05-08 04:52 | Inpatient (IN) | payer OTHER ==
[~2024-05-08] VITALS: Ht 177.8 cm; Wt 116.6 kg
[~2024-05-08 04:52] MED LIST: ALBU90OI INH; AMOCLA875 PO; ATOR20 PO; B-1100 MG PO; K-Phos Origina500 MG PO; LISI20 PO; METF500 PO; MULTIVITAM12 MG/15 M PO; PROBIOTIC1 EA13 PO; Prednisone10 MG PO; TAMS.4ER PO; Ventolin5 MG/1 ML INH; Vitamin D1000 UNI1 PO
[2024-05-08] MEDS ORDERED: Ipratropium/Albuterol SulF 2.5-0.5MG/3 ML Amp INH ONE (05:00)
[2024-05-08] MEDS ORDERED: Albuterol 2.5 MG/3 ML VIAL INH SCH ×2 (05:05→08:55)
[2024-05-08 05:12] LABS: BASOPHILS ABSOLUTE AUTO 0.03 K/mm3 (0.00-0.23); BASOPHILS PERCENT AUTO 0 % (0-2); EOSINOPHILS ABSOLUTE AUTO 0.05 K/mm3 (0.00-0.68); EOSINOPHILS PERCENT AUTO 0 % (0-6); Hematocrit 51.3 % (37.0-53.0); Hemoglobin 16.5 g/dL (13.5-17.5); IMMATURE GRAN ABSOLUTE AUTO 0.24 K/mm3 (0.00-0.10); IMMATURE GRAN PERCENT AUTO 1 % (0-1); LYMPHOCYTES ABSOLUTE AUTO 3.12 K/mm3 (0.84-5.20); LYMPHOCYTES PERCENT AUTO 16 % (21-46); MONOCYTES ABSOLUTE AUTO 1.64 K/mm3 (0.16-1.47); MONOCYTES PERCENT AUTO 8 % (4-13); Mean Corpuscular HGB 30.1 pg (26.0-34.0); Mean Corpuscular HGB Conc 32.2 g/dL (31.5-36.5); Mean Corpuscular Volume 93 fL (80-100); Mean Platelet Volume 10.5 fL (9.1-12.4); NEUTROPHILS ABSOLUTE AUTO 14.85 K/mm3 (1.96-9.15); NEUTROPHILS PERCENT AUTO 74 % (41-73); Platelet Count 291 K/mm3 (150-400); RDW Coefficient Variation 12.6 % (11.7-14.2); RDW Standard Deviation 43.3 fL (35.1-46.3); Red Blood Cell Count 5.49 M/mm3 (4.30-5.90); White Blood Cell Count 19.93 K/mm3 (4.00-11.30)
[2024-05-08 05:16] LABS: Base Excess Venous 18.3 mmol/L; Bicarbonate Venous 36.5 mmol/L (24.0-30.0); PCO2 Venous 70.9 mmHg (38-42); pH Blood Venous 7.39 (7.34-7.37)
[2024-05-08 05:36] LABS: Bun/Creatinine Ratio 45.6 (12.0-20.0); Calcium, Blood 9.8 mg/dL (8.5-10.1); Creatinine, Blood 0.7 mg/dL (0.60-1.20); Potassium, Blood 4.6 mmol/L (3.5-5.5)
[2024-05-08] MEDS ORDERED: Nitroglycerin 0.4 MG SUBL SL ONE (05:40)
[2024-05-08] MEDS ORDERED: Piperacillin/Tazobactam Sod 4.5 GM in NS 100 ML IV ONE (05:55)
[2024-05-08 06:00] LABS: Influenza A, PCR NEGATIVE (NEGATIVE); Influenza B, PCR NEGATIVE (NEGATIVE); Resp Syncytial Virus, PCR NEGATIVE (NEGATIVE); SARS-Cov-2 (COVID-19) PCR, MMC NEGATIVE (NEGATIVE)
[2024-05-08] MEDS ORDERED: NS 1,000 ML IV SCH ×2 (06:40→09:00)
[2024-05-08] MEDS ORDERED: Vancomycin HCL 2,000 MG in NS 500 ML IV ONE (07:35)
[2024-05-08] MEDS ORDERED: Tamsulosin HCl 0.4 MG Cap PO SCH (09:00)
[2024-05-08] MEDS ORDERED: Vancomycin HCL 2,000 MG in NS 500 ML IV SCH (09:00)
[2024-05-08] MEDS ORDERED: FLU VACC TS2024-25(6MOS UP)/PF 45 MCG/0.5 ML SYRINGE IM PRN (09:00)
[2024-05-08] MEDS ORDERED: Lisinopril 20 MG Tab PO SCH (09:00)
[2024-05-08] MEDS ORDERED: Ondansetron 4 MG TAB PO PRN (09:00)
[2024-05-08] MEDS ORDERED: Atorvastatin 10 MG Tab PO SCH (09:00)
[2024-05-08] MEDS ORDERED: Ipratropium/Albuterol SulF 2.5-0.5MG/3 ML Amp INH SCH ×2 (09:00→12:35)
[2024-05-08] MEDS ORDERED: MethylPREDNISolone Sod Succ 40 MG VIAL IV SCH (09:00)
[2024-05-08] MEDS ORDERED: Insulin Regular 100 UNIT/ML 10ML Vial SC SCH ×2 (09:13→16:30)
[2024-05-08] MEDS ORDERED: Multivitamins-Minerals Liquid 15 ML Oral Syringe PO SCH (09:21)
[2024-05-08] MEDS ORDERED: Lactobacil 2-S.Thermo-Bifido 1 1 Cap PO SCH (09:21)
[2024-05-08] MEDS ORDERED: Albuterol 2.5 MG/3 ML VIAL INH PRN (12:35)
[2024-05-08] MEDS ORDERED: Piperacillin/Tazobactam Sod 4.5 GM in NS 100 ML IV SCH (13:00)
[2024-05-08 14:58] VITALS: BP 150/82
--- NOTE | 2024-05-08 17:55 | NUR ---
SHIFT SUMMARY; PATIENT ER ADMIT AFTER NOON TODAY. HE IS AO X 4 ON ARRIVAL. HE IS ON 3 LITERS NASAL CANNULA ON ARRIVAL TO SURGICAL FLOOR. HIS LUNGS ARE DIMINISHED AND COARSE THROUGHOUT. HE HAS CRACKLES IN THE BASES. HIS VITAL SIGNS ARE STABLE. WAITING FOR PATIENT TO PROVIDE SPUTUM SAMPLE FOR LAB. MEPELEX PLACED OVER COCCYX AREA FOR DEEP PURPLE BRUISING THAT BLANCHES. PER PATEINT AREA IS PAINFULL WHEN TOUCHED. SMALL SKIN ABRASIONS NOTED ON BILATERAL FOREARMS FROM SCRATCHING NOTED. WILL REMAIN AVAILABLE FOR THIS PATIENT FOR ANY WANTS OR NEEDS THAT ACOME UP PRIOR TO NOC SHIFT RN REPORT.
[2024-05-08] MEDS ORDERED: HYDROcodone 5-APAP 325 TAB PO PRN (18:10)
[2024-05-08 18:44] VITALS: BP 161/84
--- NOTE | 2024-05-08 19:26 | NUR ---
DOCTOR COMMUNICATION CALL PLACED TO HOSPITALIST FOR A TELEMETRY REQUEST, DUE TO THE PATIENT BEING 8 DAYS POST CARDIAC ARREST. HOSPITALIST EXPLAINED THAT THE PATIENT DOES NOT HAVE ANY CLINICAL INDICATION FOR CARDIAC MONITORING AT THIS TIME, HIS ELECTROLYTES ARE WNL, HE DOES NOT HAVE A CURRENT ARRHYTHMIA AT THIS TIME, AND HE IS NOT HAVING CP. NO ORDERS OBTAINED AT THIS TIME. PLAN TO CALL IF FURTHER CONCERNS DEVELOP.
[2024-05-09 02:56] VITALS: BP 174/74
[2024-05-09 04:23] VITALS: BP 155/80
--- NOTE | 2024-05-09 04:38 | NUR ---
SHIFT SUMMARY PT A/OX4, DENIES CHEST PAIN, DISCOMFORT OR NEED FOR PAIN MEDICATION T/O SHIFT. BIPAP AND CONT BIOX IN PLACE, MANAGED BY RT. SPO2 DROPPED TO 85% AT APPROX 0230 THIS MORNING WHEN PT REQUESTED BIPAP BE EXCHANGED FOR 3L NC. BREATHING TREATMENT COMPLETED AND BIPAP REAPPLIED BY RT, SPO2 HAS MAINTAINED ABOVE 92% SINCE. ELEVATED BLOOD PRESSURE AROUND 0230, RETAKE APPEARED TO BE BASELINE. PT USING URINAL IND. TOLERATING PO INTAKE. PT ENCOURAGED TO REPOSITION SELF IN BED EVERY TWO HOURS FOR COMFORT AND PREVENTION. IV TO RIGHT UPPER ARM AND WRIST SL, DRESSING CDI. WILL REPORT TO COMING RN AND CONTINUE TO CARE FOR PATIENT UNTIL THEN.
[2024-05-09 05:25] LABS: BASOPHILS ABSOLUTE AUTO 0.03 K/mm3 (0.00-0.23); BASOPHILS PERCENT AUTO 0 % (0-2); EOSINOPHILS ABSOLUTE AUTO 0.04 K/mm3 (0.00-0.68); EOSINOPHILS PERCENT AUTO 0 % (0-6); Hematocrit 45.5 % (37.0-53.0); Hemoglobin 14.9 g/dL (13.5-17.5); IMMATURE GRAN PERCENT AUTO 1 % (0-1); LYMPHOCYTES ABSOLUTE AUTO 1.11 K/mm3 (0.84-5.20); LYMPHOCYTES PERCENT AUTO 6 % (21-46); MONOCYTES ABSOLUTE AUTO 0.75 K/mm3 (0.16-1.47); MONOCYTES PERCENT AUTO 4 % (4-13); Mean Corpuscular HGB 30.6 pg (26.0-34.0); Mean Corpuscular HGB Conc 32.7 g/dL (31.5-36.5); Mean Corpuscular Volume 93 fL (80-100); Mean Platelet Volume 10.5 fL (9.1-12.4); NEUTROPHILS ABSOLUTE AUTO 15.37 K/mm3 (1.96-9.15); NEUTROPHILS PERCENT AUTO 88 % (41-73); Platelet Count 243 K/mm3 (150-400); RDW Coefficient Variation 12.7 % (11.7-14.2); Red Blood Cell Count 4.87 M/mm3 (4.30-5.90)
[2024-05-09 05:52] LABS: Albumin, Blood 3.1 g/dL (3.4-5.0); Albumin/Globulin Ratio 1.1 (0.8-1.8); Bilirubin, Total 0.6 mg/dL (0.1-1.0); Bun/Creatinine Ratio 51.4 (12.0-20.0); Creatinine, Blood 0.62 mg/dL (0.60-1.20); Globulin, Blood 2.9 g/dL (2.2-4.0); Potassium, Blood 4.2 mmol/L (3.5-5.5)
[2024-05-09 07:15] VITALS: BP 162/85
[2024-05-09 08:28] LABS: Acinetobacter baumannii DNA Not Detected copy/mL (NOT DETECT); Adenovirus DNA Not Detected (NOT DETECT); Chlamydia pneumonia Not Detected (NOT DETECT); Enterobacter cloacae DNA Not Detected copy/mL (NOT DETECT); Escherichia coli DNA Not Detected copy/mL (NOT DETECT); Haemophilus influenzae DNA Not Detected copy/mL (NOT DETECT); Klebsiella aerogenes DNA Not Detected copy/mL (NOT DETECT); Klebsiella oxytoca DNA Not Detected copy/mL (NOT DETECT); Klebsiella pneumoniae DNA Not Detected copy/mL (NOT DETECT); Legionella pneumophila Not Detected (NOT DETECT); Moraxella catarrhalis DNA Not Detected copy/mL (NOT DETECT); Mycoplasma pneumoniae Not Detected (NOT DETECT); Proteus sp DNA Not Detected copy/mL (NOT DETECT); Pseudomonas aeruginosa DNA Not Detected copy/mL (NOT DETECT); Serratia marcescens DNA Not Detected copy/mL (NOT DETECT); Staphylococcus aureus DNA Detected Bin 10^4 copy/mL (NOT DETECT); Streptococcus agalactiae DNA Not Detected copy/mL (NOT DETECT); Streptococcus pneumoniae DNA Not Detected copy/mL (NOT DETECT); Streptococcus pyogenes DNA Not Detected copy/mL (NOT DETECT); mecA/C and MREJ Resist Gene Detected
[2024-05-09 08:29] LABS: Human Coronavirus RNA Detected (NOT DETECT); Human Metapneumovirus RNA Not Detected (NOT DETECT); Influenza virus A RNA Detected (NOT DETECT); Influenza virus B RNA Not Detected (NOT DETECT); Parainfluenza virus RNA Not Detected (NOT DETECT); Respiratory syncytial Vir RNA Not Detected (NOT DETECT); Rhinovirus+Enterovirus RNA Not Detected (NOT DETECT)
[2024-05-09] MEDS ORDERED: AmLODIPine Besylate 5 MG Tab PO SCH (09:00)
[2024-05-09] MEDS ORDERED: Cholecalciferol 1000 Unit Tablet (=25MCG) PO SCH (09:00)
[2024-05-09] MEDS ORDERED: Enoxaparin 40 MG/0.4 ML SYR SC SCH (09:00)
[2024-05-09] MEDS ORDERED: Thiamine HCl 100 MG Tab PO SCH (09:00)
[2024-05-09] MEDS ORDERED: PredniSONE 20 MG Tab PO SCH (11:00)
[2024-05-09] MEDS ORDERED: Trimethoprim/Sulfamethoxazole DS Tab PO SCH (13:00)
[2024-05-09 14:13] VITALS: BP 170/59
[2024-05-09 14:16] VITALS: BP 168/62
--- NOTE | 2024-05-09 15:55 | NUR ---
SHIFT SUMMARY; PATIENT HAD NO ACUTE CHANGES IN CONDITION DURING DAY. REMAINS ON 3 LITERS O2. SATS ABOVE 95%. VITAL SIGNS SHOW PATIENT IS HYPERTENSIVE BUT HAS BEEN SISNCE ARRIVAL. HE IS NOT SYMPTOMATIC. HE COMPLAINS OF RIB PAIN FROM HIS FRACTURED RIBS FROM PREVIOUS CPR. HIS LUNGS ARE DIMINISHED AND HE IS ENCOURAGED TO USE SPIROMETER. HIS CHEM BG AT NOON WAS 124 AND NO COVERAGE NEEDED. HE IS AO X 4. PATIENT USES URINAL FOR COMFORT. REFUSING TO GET UP TO USE BATHROOM OR BEDSIDE COMMODE. HE IS UP TO RECLINER FOR LARGE AMOUNT OF MORNING AND EARLY AFTERNOON. WILL CONTINUE TO MONITOR THIS PATIENT CLOSELY UNTIL REPORT AND HAND OFF TO NOC SHIFT RN.
[2024-05-09 19:18] VITALS: BP 183/54
[2024-05-10 04:41] VITALS: BP 140/60
--- NOTE | 2024-05-10 04:50 | NUR ---
SHIFT SUMMARY PT UP IN RECLINER FOR WHOLE SHIFT, UNMOTIVATED TO AMBULATE DESPITE ENCOURAGEMENT. DISCUSSED IMPORTANCE OF SHIFTING WEIGHT AND REPOSITIONING TO PREVENT BREAKDOWN, PT VERBALIZED UNDERSTANDING. PAIN MANAGED PER EMAR X1. TOLERATING REGULAR PO INTAKE. USING URINAL IND. LUNG SOUNDS DEMINISHED, BREATHING TREATMENTS AND BIPAP MANAGED PER RT. DENIES SOB OR CHEST PAIN. IV IN RIGHT HAND AND LEFT UPPER ARM PATENT AND SL. PLAN TO WORK WITH THERAPY TODAY AND POSSIBLY D/C TO REHAB. WILL CONTINUE TO CARE FOR PATIENT AND GIVE REPORT TO ON COMING RN AT SHIFT CHANGE.
[2024-05-10 05:07] LABS: BASOPHILS ABSOLUTE AUTO 0.04 K/mm3 (0.00-0.23); BASOPHILS PERCENT AUTO 0 % (0-2); EOSINOPHILS ABSOLUTE AUTO 0.02 K/mm3 (0.00-0.68); EOSINOPHILS PERCENT AUTO 0 % (0-6); Hematocrit 46.9 % (37.0-53.0); IMMATURE GRAN ABSOLUTE AUTO 0.28 K/mm3 (0.00-0.10); IMMATURE GRAN PERCENT AUTO 2 % (0-1); LYMPHOCYTES ABSOLUTE AUTO 2.41 K/mm3 (0.84-5.20); LYMPHOCYTES PERCENT AUTO 13 % (21-46); MONOCYTES PERCENT AUTO 8 % (4-13); Mean Corpuscular HGB 29.8 pg (26.0-34.0); Mean Corpuscular Volume 93 fL (80-100); Mean Platelet Volume 10.6 fL (9.1-12.4); NEUTROPHILS ABSOLUTE AUTO 14.28 K/mm3 (1.96-9.15); NEUTROPHILS PERCENT AUTO 78 % (41-73); Platelet Count 246 K/mm3 (150-400); RDW Coefficient Variation 12.7 % (11.7-14.2); RDW Standard Deviation 43.7 fL (35.1-46.3); Red Blood Cell Count 5.03 M/mm3 (4.30-5.90); White Blood Cell Count 18.43 K/mm3 (4.00-11.30)
[2024-05-10 05:15] LABS: Calcium, Blood 9.2 mg/dL (8.5-10.1); Creatinine, Blood 0.7 mg/dL (0.60-1.20); Potassium, Blood 4.4 mmol/L (3.5-5.5)
[2024-05-10 07:16] VITALS: BP 148/56
[2024-05-10] MEDS ORDERED: HYDROcodone 5-APAP 325 TAB PO PRN (09:25)
[2024-05-10 09:51] VITALS: BP 146/69
[2024-05-10] MEDS ORDERED: MULTI-VITAMIN1 EAC2 PO (12:04)
[2024-05-10] MEDS ORDERED: FURO40 PO (13:19)
[2024-05-10 16:05] VITALS: BP 153/58
--- NOTE | 2024-05-10 16:45 | NUR ---
DISCHARGE SUMMARY 1622 - PT D/C'd TO SNF VIA WHEELCHAIR BY TRANSPORT SERVICE. A&0 x4, VSS - PT ON BASELINE 4L O2 VIA NC, REQUIRES 6L O2 VIA NC c EXERTION. TOLERATING ORALS. CONTINENT, USES URINAL. BM TODAY, STAND/PVIOT TO BSC. PT AMBULATES USING FWW c SBA, UNABLE TO AMB LONG DISTANCES R/T FATIGUE. MEPILEX TO COCCYX C/D/I. PT REPORTS PAIN TOLERABLE c ORAL MEDICATIONS. LOCALIZES PAIN TO CHEST & L ARM R/T CPR EARLIER THIS MONTH. PT REPORTS BRUISING VISUALIZED PRIOR TO ADMISSION. ALL DISCHARGE INFORMATION GIVEN, PT VERBALIZES UNDERSTANDING 1635 - ATTEMPTED TO CALL REPORT TO SNF 1645 - SNF CALLED INFORMATION TECHNOLOGY ASSISTANT. REPORT GIVEN TO RN ASSUMING CARE AT SNF.
[2024-05-11] MEDS ORDERED: Multivitamins/Minerals 1 Tab PO SCH (09:00)
== END 2024-05-10 16:50 | DRG 189 ==
LOC: ER 04:52 → SURS 08:53 → ERHOLD 08:53 → SURS 14:44
PROVIDERS: Emergency Medicine; Student in an Organized Health Care Education/Training Program; ADMIT Internal Medicine
PROC: 5A09357 Assistance with Respiratory Ventilation, Less than 24 Consecutive Hours, Continuous Positive Airway Pressure (ICD-10-PCS; principal; 2024-05-09)
DX: J96.21 Acute and chronic respiratory failure with hypoxia (principal); J44.1 Chronic obstructive pulmonary disease with (acute) exacerbation; J96.22 Acute and chronic respiratory failure with hypercapnia; N40.0 Benign prostatic hyperplasia without lower urinary tract symptoms; E11.9 Type 2 diabetes mellitus without complications; I10 Essential (primary) hypertension; E78.5 Hyperlipidemia, unspecified; I25.2 Old myocardial infarction; Z86.74 Personal history of sudden cardiac arrest; Z79.899 Other long term (current) drug therapy
CPT/HCPCS: 0241U; 36415; 71045; 71250; 80048; 80053; 82803; 82947; 83605; 83880; 84145; 84484; 85025; 87081; 87633; 93005; 93010; 94640; 94644; 94660; 94664; 94762; 96361; 96365; 97116; 97161; 97165; 97530; 99285-25; A9270; J1650; J1815; J2543; J2919; J3370; J7030; J7040; J7512; Q9967

== ENCOUNTER 2024-06-15 02:15 | Inpatient (IN) | payer OTHER ==
[~2024-06-15] VITALS: Ht 180.3 cm; Wt 90.1 kg
[2024-06-15] VITALS (7 sets, daily range): BP systolic 114–165; BP diastolic 61–80
[~2024-06-15 02:15] MED LIST changes: +AMLO5 PO; +Aspir 8181 MG PO; +CENTRUM SILVER1 EAC2 PO; +Deltasone 10 mg10 MG PO; +FURO40 PO; +LACT PO; +MULTI-VITAMIN1 EAC2 PO; +PHOSPHO-TRIN K500 MG PO; +PRED20 PO; +Percocet 10-321 EACH PO; +VITAMIN B-1100 M1 PO
[2024-06-15] MEDS ORDERED: Midazolam HCL 1 MG/ML 5MLVIAL ONE (02:17)
[2024-06-15] MEDS ORDERED: FentaNYL Citrate 50 MCG/ML 2 ML Injection ONE (02:17)
[2024-06-15 02:29] LABS: Base Excess Venous 6.3 mmol/L; Bicarbonate Venous 26.9 mmol/L (24.0-30.0); PCO2 Venous 93.7 mmHg (38-42); pH Blood Venous 7.18 (7.34-7.37)
[2024-06-15] MEDS ORDERED: CefTRIAXone Sodium 1,000 MG in NS 50 ML IV ONE (02:35)
[2024-06-15] MEDS ORDERED: Azithromycin 500 MG in NS 250 ML IV ONE (02:35)
[2024-06-15] MEDS ORDERED: Midazolam HCl 1MG / ML 2ML Vial IV ONE (02:50)
[2024-06-15 02:52] LABS: Hematocrit 40.3 % (37.0-53.0); Hemoglobin 12.9 g/dL (13.5-17.5); Mean Corpuscular HGB 30.1 pg (26.0-34.0); Mean Corpuscular Volume 94 fL (80-100); Mean Platelet Volume 10.2 fL (9.1-12.4); Platelet Count 382 K/mm3 (150-400); RDW Coefficient Variation 13.3 % (11.7-14.2); RDW Standard Deviation 46.2 fL (35.1-46.3); Red Blood Cell Count 4.28 M/mm3 (4.30-5.90); White Blood Cell Count 22.58 K/mm3 (4.00-11.30)
[2024-06-15 03:18] LABS: Albumin, Blood 2.9 g/dL (3.4-5.0); Albumin/Globulin Ratio 0.7 (0.8-1.8); Bilirubin, Total 0.2 mg/dL (0.1-1.0); Bun/Creatinine Ratio 32.9 (12.0-20.0); Calcium, Blood 8.9 mg/dL (8.5-10.1); Creatinine, Blood 0.7 mg/dL (0.60-1.20); Globulin, Blood 3.9 g/dL (2.2-4.0); Magnesium, Blood 2.2 mg/dL (1.6-2.4); Phosphorus, Blood 4.4 mg/dL (2.5-4.9); Potassium, Blood 3.9 mmol/L (3.5-5.5); Thyroid Stimulating Hormone 1.97 uIU/mL (0.360-4.800); Total Protein, Blood 6.8 g/dL (6.4-8.2)
[2024-06-15 03:19] LABS: BASOPHILS PERCENT MAN 0 % (0-2); EOSINOPHILS PERCENT MAN 0 % (0-6); LYMPHOCYTES ABSOLUTE MAN 6.99 K/mm3 (0.84-5.20); LYMPHOCYTES PERCENT MAN 31 % (21-46); MONOCYTES PERCENT MAN 12 % (4-13); MYELOCYTE ABSOLUTE MAN 0.22 K/mm3 (0.00-0.00); MYELOCYTE PERCENT MAN 1 % (0-0); NEUTROPHILS ABSOLUTE MAN 12.64 K/mm3 (1.96-9.15); SEG NEUTROPHILS PERCENT MAN 56 % (41-73); TOTAL CELLS COUNTED 100
[2024-06-15 03:28] LABS: Influenza A, PCR NEGATIVE (NEGATIVE); Influenza B, PCR NEGATIVE (NEGATIVE); Resp Syncytial Virus, PCR NEGATIVE (NEGATIVE); SARS-Cov-2 (COVID-19) PCR, MMC NEGATIVE (NEGATIVE)
[2024-06-15] MEDS ORDERED: NS 1,000 ML IV ONE (03:30)
[2024-06-15] MEDS ORDERED: Ondansetron 4 MG TAB PO PRN (04:00)
[2024-06-15] MEDS ORDERED: NS 1,000 ML IV SCH (04:00)
[2024-06-15] MEDS ORDERED: FLU VACC TS2024-25(6MOS UP)/PF 45 MCG/0.5 ML SYRINGE IM ONE (04:00)
[2024-06-15] MEDS ORDERED: PNEUMOC 20-VAL CONJ-DIP CRM/PF 0.5 ML SYRINGE IM ONE (04:00)
[2024-06-15] MEDS ORDERED: OxyCODONE 10/Acetamin 325 TABLET PO PRN (05:00)
[2024-06-15] MEDS ORDERED: Albuterol HFA200 ACT/6.7 GM INH INH SCH (05:50)
--- NOTE | 2024-06-15 06:35 | NUR ---
SHIFT SUMMARY ASSUMED CARE OF PT AT 0530. PT IS A/OX4. PT CAME TO UNIT ON BIPAP. PT NOW ON OXY MASK 8L TO TAKE PAIN MEDICATIONS. SATURATIONS 95% AND ABOVE. LUNG SOUNDS HAVE WHEEZING AND COURSE. PT HAS MOIST NONPRODUCTIVE COUGH. PT STATES HE RECENTLY HAS PNA. PT BEDREST SINCE COMING TO UNIT. INCONTIENT OF URINE. PT HAS BED SORE ON MD AZAEL MADE AWARE.
[2024-06-15] MEDS ORDERED: Insulin Regular 100 UNIT/ML 10ML Vial SC SCH (07:30)
[2024-06-15] MEDS ORDERED: MethylPREDNISolone Sod Succ 125 MG Vial IV SCH (08:00)
[2024-06-15] MEDS ORDERED: AmLODIPine Besylate 5 MG Tab PO SCH (09:00)
[2024-06-15] MEDS ORDERED: Cholecalciferol 1000 Unit Tablet (=25MCG) PO SCH (09:00)
[2024-06-15] MEDS ORDERED: Aspirin 81 MG TabEC PO SCH (09:00)
[2024-06-15] MEDS ORDERED: Lactobacil 2-S.Thermo-Bifido 1 1 Cap PO SCH (09:00)
[2024-06-15] MEDS ORDERED: Lisinopril 20 MG Tab PO SCH (09:00)
[2024-06-15] MEDS ORDERED: Enoxaparin 40 MG/0.4 ML SYR SC SCH (09:00)
[2024-06-15] MEDS ORDERED: Atorvastatin 10 MG Tab PO SCH (09:00)
[2024-06-15] MEDS ORDERED: Tamsulosin HCl 0.4 MG Cap PO SCH (09:00)
[2024-06-15 10:28] LABS: BASOPHILS ABSOLUTE AUTO 0.04 K/mm3 (0.00-0.23); BASOPHILS PERCENT AUTO 0 % (0-2); EOSINOPHILS ABSOLUTE AUTO 0.01 K/mm3 (0.00-0.68); EOSINOPHILS PERCENT AUTO 0 % (0-6); Hematocrit 35.7 % (37.0-53.0); Hemoglobin 11.6 g/dL (13.5-17.5); IMMATURE GRAN ABSOLUTE AUTO 0.12 K/mm3 (0.00-0.10); IMMATURE GRAN PERCENT AUTO 1 % (0-1); LYMPHOCYTES ABSOLUTE AUTO 1.98 K/mm3 (0.84-5.20); LYMPHOCYTES PERCENT AUTO 11 % (21-46); MONOCYTES PERCENT AUTO 8 % (4-13); Mean Corpuscular HGB 30.4 pg (26.0-34.0); Mean Corpuscular HGB Conc 32.5 g/dL (31.5-36.5); Mean Corpuscular Volume 94 fL (80-100); Mean Platelet Volume 9.9 fL (9.1-12.4); NEUTROPHILS ABSOLUTE AUTO 14.19 K/mm3 (1.96-9.15); NEUTROPHILS PERCENT AUTO 80 % (41-73); Platelet Count 257 K/mm3 (150-400); RDW Coefficient Variation 13.3 % (11.7-14.2); RDW Standard Deviation 45.6 fL (35.1-46.3); Red Blood Cell Count 3.82 M/mm3 (4.30-5.90); White Blood Cell Count 17.74 K/mm3 (4.00-11.30)
[2024-06-15 11:21] LABS: Albumin, Blood 2.5 g/dL (3.4-5.0); Albumin/Globulin Ratio 0.7 (0.8-1.8); Bilirubin, Total 0.4 mg/dL (0.1-1.0); Bun/Creatinine Ratio 41.5 (12.0-20.0); Calcium, Blood 8.9 mg/dL (8.5-10.1); Creatinine, Blood 0.53 mg/dL (0.60-1.20); Globulin, Blood 3.7 g/dL (2.2-4.0); Potassium, Blood 4.2 mmol/L (3.5-5.5); Total Protein, Blood 6.2 g/dL (6.4-8.2)
[2024-06-15] MEDS ORDERED: Ipratropium/Albuterol SulF 2.5-0.5MG/3 ML Amp INH SCH (11:40)
[2024-06-15] MEDS ORDERED: Albuterol 2.5 MG/3 ML VIAL INH PRN (11:45)
[2024-06-15] MEDS ORDERED: Rocuronium Bromide 10 MG/ML 5ML Injection IV ONE ×2 (12:40→16:47)
[2024-06-15] MEDS ORDERED: Etomidate 2MG / ML 10ML Vial XX ONE (12:40)
[2024-06-15] MEDS ORDERED: Midazolam HCl 1MG / ML 2ML Vial XX ONE (12:40)
[2024-06-15 16:22] LABS: Base Excess Venous 6.5 mmol/L; Bicarbonate Venous 28.9 mmol/L (24.0-30.0); PCO2 Venous 54 mmHg (38-42); pH Blood Venous 7.36 (7.34-7.37)
[2024-06-15] MEDS ORDERED: Etomidate 2MG / ML 10ML Vial IV ONE (16:47)
--- NOTE | 2024-06-15 17:43 | NUR ---
End of Shift Pt A&O x4. Pt irritable this AM when NPO prior to speech eval to r/o aspiration. Pt yelling at staff "This is Erin! I've never heard of water being withheld ever!" Pt continued w/ yelling despite staff explaination & reasoning for awaiting ST evaluation this AM for safe PO intake. Pt responding "that's just an excuse! This is Erin!" ST to bedside this AM w/ pt still agitated. ST evaluation completed & pt w/ diet order. Pt then calm, cooperative & apologetic remainder of shift. Pt VSS. Spo2 > 90% on 3-5L oxymask or NC. Pt refusing to wear bipap this shift. RT to rm for new bipap mask fitting per pt preference. Pt agreeable to wear bipap tonight for sleep.
[2024-06-15] MEDS ORDERED: Azithromycin 500 MG in NS 250 ML IV SCH (21:00)
[2024-06-15] MEDS ORDERED: CefTRIAXone Sodium 1,000 MG in NS 100 ML IV SCH (21:00)
--- NOTE | 2024-06-15 21:40 | NUR ---
TELEMETRY EVENT. THIS RN RECEIVED CALL FROM TELEMETRY AT 2136 WITH REPORT OF 40 SECOND RUN OF SINUS TACH AT 152 BPM. THIS RN IMMEDIATELY WENT TO PT'S ROOM AND VISUALIZED PT. PT DENIES SOB, CHEST PAIN OR PRESSURE, HEART RATE CAME BACK DOWN TO 100S WHICH HAS BEEN BASELINE FOR THIS SHIFT. DISCUSSED EVENT WITH CHARGE NURSE RANJEET. CONTINUING CARE. TELEMETRY MONITORING INTACT.
[2024-06-16] VITALS (7 sets, daily range): BP systolic 125–160; BP diastolic 61–81
--- NOTE | 2024-06-16 05:17 | NUR ---
SHIFT SUMMARY NOC. PT A/OX4, BUT FORGETFUL AND A POOR HISTORIAN AT TIMES. PT USING OXYGEN FACE MASK AT 4-5 L THIS SHIFT. PT WORE BIPAP FOR APPROX 3-4 HOURS AND THEN SWITCHED BACK TO FACE MASK. PT REPORTS IMPROVED BREATHING T/O SHIFT. PT MEDICATED FOR PAIN IN BILATERAL SHOULDERS AND CHEST X2. PT DESCRIBES PAIN MUSCULOSKELETAL AND NOT CHEST PAIN/PRESSURE. PT VOIDING URINE VIA URINAL INDEPENDENTLY. PT HAD 1 TELEMETRY EVENT THIS SHIFT, PLEASE SEE PREVIOUS NOTE. CALL LIGHT IN REACH.
[2024-06-16] MEDS ORDERED: Vancomycin HCL 2,500 MG in NS 500 ML IV ONE (11:50)
--- NOTE | 2024-06-16 17:26 | NUR ---
END OF SHIFT NOTE: NO ACUTE EVENTS THIS SHIFT. PT A/OX4, ALTHOUGH FORGETFUL OF OCCASIONAL DETAILS/HISTORY. ABLE TO MAKE NEEDS KNOWN. HR 100-120'S, SINUS TACH ON TELE. SBP 120-160'S, DENIES CHEST PAIN/PRESSURE. SPO2 >88% ON 5L VIA OXYMASK; DOWN TO 3L AT REST BUT REQUIRING 5L W/ ANY EXERTION. HARSH, OCCASIONAL COUGH NOTED. BIPAP REMAINS AT BEDSIDE. AFEBRILE. PT REFUSING TO WORK WITH PHYSICAL THERAPY, STATES "THAT'S WHAT THE REHAB PLACE IS FOR, I JUST WANT TO REST WHILE I'M HERE." EDUCATION PROVIDED, PT CONTINUES TO REFUSE THERAPY. ABLE TO GET UP TO CHAIR FOR DINNER THIS EVENING W/ FWW & 1P ASSIST. TOLERATING PO INTAKE WELL. PT REFUSING INSULIN COVERAGE TODAY. VOIDING YELLOW URINE IN URINAL INDEPENDENTLY. NO BM'S. C/O PAIN TO CHEST/SHOULDERS DUE TO RECENT CPR, MEDICATED PER EMAR W/ RELIEF. NO OTHER NEEDS AT THIS TIME. CALL LIGHT IN REACH.
[2024-06-16] MEDS ORDERED: Mupirocin Calcium Oint 1 GM SCH (21:00)
--- NOTE | 2024-06-16 22:57 | NUR ---
ASSUMPTION OF CARE THIS RN ASSUMED CARE OF PATIENT AT 1900. PT A&O X4. ABLE TO MAKE NEEDS KNOWN AND CALLING APPROPRIATELY. PT ON 4L VIA MASK WITH SPO2 >92%. DENIES SOB AT REST. OTHER VSS. PT MOVING SELF IN BED INDEPENDENTLY, REFUSING ASSISTANCE FROM STAFF WITH TURNING. USING URINAL INDEPENDENTLY IN BED. NS INFUSING PER EMAR. MEDICATING PER EMAR FOR PAIN. BED IN LOWEST POSITION AND CALL LIGHT WITHIN REACH.
[2024-06-17] MEDS ORDERED: Vancomycin HCL 1,750 MG in NS 500 ML IV SCH
[2024-06-17 04:00] VITALS: BP 162/64
[2024-06-17 04:17] LABS: BASOPHILS ABSOLUTE AUTO 0.04 K/mm3 (0.00-0.23); BASOPHILS PERCENT AUTO 0 % (0-2); EOSINOPHILS PERCENT AUTO 0 % (0-6); Hematocrit 33.8 % (37.0-53.0); IMMATURE GRAN ABSOLUTE AUTO 0.36 K/mm3 (0.00-0.10); IMMATURE GRAN PERCENT AUTO 2 % (0-1); LYMPHOCYTES ABSOLUTE AUTO 1.96 K/mm3 (0.84-5.20); LYMPHOCYTES PERCENT AUTO 9 % (21-46); MONOCYTES ABSOLUTE AUTO 1.88 K/mm3 (0.16-1.47); MONOCYTES PERCENT AUTO 9 % (4-13); Mean Corpuscular HGB 30.5 pg (26.0-34.0); Mean Corpuscular HGB Conc 32.5 g/dL (31.5-36.5); Mean Corpuscular Volume 94 fL (80-100); Mean Platelet Volume 10.2 fL (9.1-12.4); NEUTROPHILS ABSOLUTE AUTO 17.74 K/mm3 (1.96-9.15); NEUTROPHILS PERCENT AUTO 81 % (41-73); Platelet Count 322 K/mm3 (150-400); RDW Coefficient Variation 13.2 % (11.7-14.2); RDW Standard Deviation 45.4 fL (35.1-46.3); Red Blood Cell Count 3.61 M/mm3 (4.30-5.90); White Blood Cell Count 21.98 K/mm3 (4.00-11.30)
--- NOTE | 2024-06-17 04:32 | NUR ---
SHIFT SUMMARY SEE PREVIOUS NOTE. NO ACUTE CHANGES OVERNIGHT. PT ASKING FOR PAIN MEDS Q4HRS, MEDICATING PER EMAR. ENCOURAGING PT TO MOVE SELF IN BED. PT DECLINES NEEDING ASSISTANCE FROM STAFF FOR REPOSITIONING. USING URINAL IN BED. CALLING APPROPRIATELY. BED IN LOWEST POSITION AND CALL LIGHT WITHIN REACH. THIS RN WILL REPORT TO ONCOMING DAYSHIFT RN.
[2024-06-17 04:44] LABS: Bun/Creatinine Ratio 33.2 (12.0-20.0); Creatinine, Blood 0.66 mg/dL (0.60-1.20); Potassium, Blood 4.2 mmol/L (3.5-5.5)
[2024-06-17 07:22] VITALS: BP 134/94
[2024-06-17] MEDS ORDERED: PredniSONE 20 MG Tab PO SCH (09:00)
[2024-06-17] MEDS ORDERED: Diltiazem HCl 180 MG Cap.CD PO SCH (09:00)
--- NOTE | 2024-06-17 09:31 | NUR ---
AM NOTE: THIS RN ASSUMED CARE OF PT AT APPROX 0700. PT A/OX4, FORGETFUL AT TIMES. COOPERATIVE W/ MOST CARE, CALLS APPROPRIATELY FOR ASSISTANCE. HR 100'S, SINUS TACH ON TELE. SBP 130'S, ENDORSES CHEST PAIN FROM CHEST COMPRESSIONS 1 MO AGO. DENIES CHEST PRESSURE. SPO2 >90% ON 4-5L VIA OXYMASK. NONPRODUCTIVE COUGH NOTED. AFEBRILE. C/O PAIN TO "CHEST AND RIBS", MEDICATED PER EMAR W/ REPORTED RELIEF. PT REPOSITIONING SELF IN BED, DECLINES STAFF ASSISTANCE. VOIDING INDEPENDENTLY W/ URINAL. NS INFUSING PER EMAR. NO OTHER NEEDS AT THIS TIME, CALL LIGHT IN REACH.
[2024-06-17 15:58] VITALS: BP 155/69
--- NOTE | 2024-06-17 16:14 | NUR ---
END OF SHIFT NOTE: NO ACUTE EVENTS THIS SHIFT. VSS. HR 100'S, SINUS TACH ON TELE. BP STABLE. SPO2 >90% ON 4-6L VIA OXYMASK. MINIMAL PO INTAKE THIS SHIFT; PT STATES NASAL MUPIROCIN OINTMENT "TAKES AWAY ALL OF MY APPETITE." NS INFUSING PER EMAR. C/O PAIN T/O SHIFT, MEDICATED PER EMAR. PT REFUSING TO GET OUT OF BED OR ALLOW STAFF TO ASSIST IN REPOSITIONING; EDUCATION PROVIDED ON PROTECTING SKIN INTEGRITY WELL PULMONARY BENEFITS OF ACTIVITY/REPOSITIONING. NO OTHER NEEDS AT THIS TIME, CALL LIGHT IN REACH.
--- NOTE | 2024-06-17 17:14 | NUR ---
1712 ARRIVED TO [facility] VIA BED. PT IN DROPLET ISOLATION. ALERT AND ORIENTED. CALL LIGHT IN REACH. PT ON OXYGEN AT 5 LITERS NC. PT DENIES ANY NEEDS AT THIS TIME
[2024-06-17 19:52] VITALS: BP 150/67
[2024-06-17 23:16] LABS: Vancomycin, Trough 22.3 ug/mL (5.0-10.0)
[2024-06-18] MEDS ORDERED: Vancomycin HCL 1,250 MG in NS 250 ML IV SCH (01:00)
[2024-06-18 05:26] VITALS: BP 154/71
--- NOTE | 2024-06-18 05:32 | NUR ---
SHIFT SUMMARY: Pt is admitted for pain and is a DNR. is alert and able to make needs known. ADLs have been 1p but has been on bed rest. When asked she has stated her pain is 2/10 or it s ok right now. folly in place and draining clear yellow urine. Illiostomy present and out put is brown mostly liquid. Rectal tube in place with little output so far this shift.
--- NOTE | 2024-06-18 05:37 | NUR ---
SHIFT SUMMARY: Pt is admitted for acute respiratory failure and is a full code. Is alert and able to make needs known. ADLs have been 1p. On ISO for MRSA. pain has been managed with PRN medication. Lamine reports sinus tach in the 100s.
[2024-06-18 07:24] VITALS: BP 170/75
[2024-06-18 08:28] LABS: BASOPHILS ABSOLUTE AUTO 0.05 K/mm3 (0.00-0.23); BASOPHILS PERCENT AUTO 0 % (0-2); EOSINOPHILS ABSOLUTE AUTO 0.01 K/mm3 (0.00-0.68); EOSINOPHILS PERCENT AUTO 0 % (0-6); Hematocrit 39.1 % (37.0-53.0); Hemoglobin 12.6 g/dL (13.5-17.5); IMMATURE GRAN ABSOLUTE AUTO 0.51 K/mm3 (0.00-0.10); IMMATURE GRAN PERCENT AUTO 2 % (0-1); LYMPHOCYTES PERCENT AUTO 9 % (21-46); MONOCYTES ABSOLUTE AUTO 1.64 K/mm3 (0.16-1.47); MONOCYTES PERCENT AUTO 7 % (4-13); Mean Corpuscular HGB 30.4 pg (26.0-34.0); Mean Corpuscular HGB Conc 32.2 g/dL (31.5-36.5); Mean Corpuscular Volume 94 fL (80-100); Mean Platelet Volume 9.8 fL (9.1-12.4); NEUTROPHILS ABSOLUTE AUTO 18.14 K/mm3 (1.96-9.15); NEUTROPHILS PERCENT AUTO 82 % (41-73); Platelet Count 299 K/mm3 (150-400); RDW Coefficient Variation 13.2 % (11.7-14.2); RDW Standard Deviation 45.3 fL (35.1-46.3); Red Blood Cell Count 4.15 M/mm3 (4.30-5.90); White Blood Cell Count 22.25 K/mm3 (4.00-11.30)
[2024-06-18 08:47] LABS: Albumin, Blood 2.9 g/dL (3.4-5.0); Albumin/Globulin Ratio 0.7 (0.8-1.8); Bilirubin, Total 0.4 mg/dL (0.1-1.0); Bun/Creatinine Ratio 26.8 (12.0-20.0); Creatinine, Blood 0.52 mg/dL (0.60-1.20); Globulin, Blood 3.9 g/dL (2.2-4.0); Potassium, Blood 3.8 mmol/L (3.5-5.5); Total Protein, Blood 6.8 g/dL (6.4-8.2)
[2024-06-18 16:07] VITALS: BP 129/61
--- NOTE | 2024-06-18 17:03 | NUR ---
SHIFT SUMMARY: PT AOX2-3 TO SELF, SITUATION AND PLACE THIS MORNING. IS ON 7L OF O2 WITH OXYMASK. REFUSED NC SAYING IT WAS UNCOMFORTABLE. TOLERATING OXYGEN AND BREATHING TREATMENT WELL. STILL REFUSES TO WORK WITH PT AND OT. WAS ABLE TO SIT SELF UP ON THE EDGE OF BED WITH MINIMAL ASSISTANCE FROM THIS RN. AFTER SITTING ON THE EDGE IN TRIPOD POSITION FOR A WHILE, PT SEEMED TO BE AOX4 AND IN MUCH BETTER MOOD AND AFFECT. PAIN BEING CONTROLED PER EMR. PT IN BETTER STATE FOR A WHILE THE FELL ASLEEP BACK IN BED AND REGRESSED TO PRIOR STATE. PT WAS SOUNDING MORE WET IN THE LUNGS. PROVIDER NOTIFIED, CONT FLUIDS DISCONTINUED. PT IN BED RESTING, BED IN LOWEST POSITON, CALL LIGHT IN REACH.
[2024-06-18 21:31] VITALS: BP 134/103
[2024-06-19] VITALS (66 sets, daily range): BP systolic 91–188; BP diastolic 28–119
[2024-06-19 01:33] LABS: Base Excess Venous 11.5 mmol/L; Bicarbonate Venous 31.9 mmol/L (24.0-30.0); PCO2 Venous 77.5 mmHg (38-42)
--- NOTE | 2024-06-19 01:35 | NUR ---
DOCTOR CALLED FOR A VBG ORDER, PT SEEMED MORE CONFUSED AND HAS A HISTORY OF CO2 RETENTION PER RT. ORDER GIVEN AND VBG WAS HIGH BUT NOT CRITICAL.
[2024-06-19 01:48] LABS: BASOPHILS ABSOLUTE AUTO 0.07 K/mm3 (0.00-0.23); BASOPHILS PERCENT AUTO 0 % (0-2); EOSINOPHILS PERCENT AUTO 0 % (0-6); Hematocrit 36.7 % (37.0-53.0); Hemoglobin 11.9 g/dL (13.5-17.5); IMMATURE GRAN PERCENT AUTO 4 % (0-1); LYMPHOCYTES PERCENT AUTO 8 % (21-46); MONOCYTES ABSOLUTE AUTO 1.66 K/mm3 (0.16-1.47); MONOCYTES PERCENT AUTO 9 % (4-13); Mean Corpuscular HGB 30.1 pg (26.0-34.0); Mean Corpuscular HGB Conc 32.4 g/dL (31.5-36.5); Mean Corpuscular Volume 93 fL (80-100); NEUTROPHILS ABSOLUTE AUTO 15.63 K/mm3 (1.96-9.15); NEUTROPHILS PERCENT AUTO 80 % (41-73); NRBC ABSOLUTE 0.02 K/mm3 (0.00-0.02); NRBC Auto 0.1 /100 WBC (0.0-0.2); RDW Coefficient Variation 13.1 % (11.7-14.2); RDW Standard Deviation 44.7 fL (35.1-46.3); Red Blood Cell Count 3.96 M/mm3 (4.30-5.90); White Blood Cell Count 19.56 K/mm3 (4.00-11.30)
[2024-06-19 01:59] LABS: Albumin, Blood 2.8 g/dL (3.4-5.0); Albumin/Globulin Ratio 0.8 (0.8-1.8); Bilirubin, Total 0.3 mg/dL (0.1-1.0); Bun/Creatinine Ratio 29.7 (12.0-20.0); Calcium, Blood 8.8 mg/dL (8.5-10.1); Creatinine, Blood 0.64 mg/dL (0.60-1.20); Globulin, Blood 3.6 g/dL (2.2-4.0); Potassium, Blood 4.2 mmol/L (3.5-5.5); Total Protein, Blood 6.4 g/dL (6.4-8.2)
[2024-06-19 02:32] LABS: Platelet Count 304 K/mm3 (150-400)
[2024-06-19] MEDS ORDERED: Furosemide 10 MG/ML 4ML Vial IV ONE (04:20)
[2024-06-19] MEDS ORDERED: Naloxone HCl 0.4MG / ML 1ML Vial IV ONE (05:00)
--- NOTE | 2024-06-19 05:49 | NUR ---
TRANSFER NOTE: PT WAS TRANSFERED TO ICU1 @0530 FOR RESP DECLINE AND AMS. I NOTICED THE PT WAS STARTING TO DESAT INTO THE LOW 80/80'S AND CALLED RT WHO ENCOURAGED TO ADJUST TO 15 L WHEN THE PATIENT WAS ON 6 UNTIL THE PT RECOVERS AND THEN HE CAN SLOWLY DECREASE BACK TO HIS NORMAL O2 LEVELS. THE PT RECOVERED BUT SEEMED MORE CONFUSED AND AMS. THE PT BECAME HEAVILY INCONTINENT TO URINE AND HE IS USUALLY CONT TO URINE. PT ALSO SOUNDED WORSE AND HAD MORE CRACKLES. PT'S EYES WERE ALSO GLAZED MORE AND WERE NOT THAT WAY AT THE BEGINNING OF THE SHIFT I CALLED THE DR WHO PRESCRIBED LASIX. I REPOSITIONED THE PT AND DOCTOR CAME TO ROUND ON PT AND WANTED HIM TO HAVE IV NARCAN-THIS TOOK LONGER THEN EXPECTED BECAUSE THE IV LOOKED IF IT WENT BAD BUT SEEMED TO FLUSH OKAY. NARCAN GIVEN AND MYSELF AND BUSINESS SERVICES ANALYST TRANSPORTED PT TO THE ICU. THE
[2024-06-19] MEDS ORDERED: propofoL 100 ML IV SCH (06:00)
--- NOTE | 2024-06-19 07:00 | NUR ---
TRANSFER/INTUBATION RECEIVED FROM MEDICAL FLOOR VIA BED AT 0537. PT IS RESTLESS. NOT FOLLOWING ANY COMMANDS. RESPIRATIONS LABORED AND TACHYPNEIC. O2 10L OXYMASK AT THIS TIME. HR 110s. BP STABLE. INCONTINENT OF URINE. INTUBATED AT 0600- ETT 8.0 25CM AT GUMS. CENTRAL LINE PLACED TO NHJ. PROPOFOL STARTED AT 10MCG/KG/MIN. BILATERAL SOFT WRIST RESTRAINTS ON AT 0600. OG PLACED- CLAMPED AT THIS TIME. SKIN TEAR NOTED TO LEFT ELBOW- WILL GET PICTURES WHEN CAMERA IS AVAILABLE. MEPILEX IN PLACE TO COCCYX. 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 SPUTUM AND URINE CULTURE SENT TO LAB. WILL REPORT TO ONCOMING RN WHEN AVAILABLE.
[2024-06-19] MEDS ORDERED: Piperacillin/Tazobactam Sod 4.5 GM in NS 100 ML IV SCH (07:07)
[2024-06-19 07:09] LABS: Source, Urine Foley catheter
[2024-06-19 07:12] LABS: Appearance, Urine Clear (Clear); Bilirubin, Urine Neg (Neg); Blood, Urine Neg (Neg); Glucose Qualitative, Urine Neg (Neg); Ketones, Urine Neg (Neg); Leukocyte Esterase, Urine Neg (Neg); Nitrite, Urine Neg (Neg); Protein, Urine Neg (Neg); Specific Gravity, Urine 1.015 (1.003-1.022); Urobilinogen, Urine NORM (Normal)
[2024-06-19 07:18] LABS: Color, Urine No Color (P-Yellow)
--- NOTE | 2024-06-19 07:30 | NUR ---
ASSUME CARE: REPORT RECIEVED FROM BRUNA BENITEZ AT 0700 PT INTUBATED AND SEDATED, SPO2> 95%, SEE RT NOTES FOR VENT SETTINGS. PROPOFOL GTT AT 20 MCG/KG/MIN, RASS -1, ALERT TO VERBAL STIMULI. VSS. 0830 PT AGITATED RASS +1 PROPOFOL INCREASED, MEDICATED FOR PAIN PER EMAR. PT BP SOFT SBP 80s, LEVOPHED GTT STARTED AT 2 MCG/MIN. AT BEDSIDE. WILL UPDATE NEEDED.
[2024-06-19 08:33] LABS: PCO2 Arterial 63.9 mmHg (35-45); PO2 Arterial 150 mmHg (80-100); pH Blood Arterial 7.41 (7.35-7.45)
[2024-06-19] MEDS ORDERED: FentaNYL Citrate 50 MCG/ML 2 ML Injection IV PRN (08:35)
[2024-06-19] MEDS ORDERED: NS 1,000 ML IV ONE ×2 (09:10→10:00)
[2024-06-19] MEDS ORDERED: Cetylpyridinium Chloride 1 EA MISC MT SCH (09:50)
[2024-06-19] MEDS ORDERED: Lisinopril 20 MG Tab PT SCH (09:55)
[2024-06-19] MEDS ORDERED: Ipratropium/Albuterol SulF 2.5-0.5MG/3 ML Amp INH SCH (09:55)
[2024-06-19] MEDS ORDERED: NS 1,000 ML IV SCH (10:00)
[2024-06-19] MEDS ORDERED: Pantoprazole Sodium 40 MG Injection IV SCH (10:00)
[2024-06-19] MEDS ORDERED: Bisacodyl 10 MG Supp PR PRN (11:25)
[2024-06-19] MEDS ORDERED: Docusate Sodium 100 MG UDC PT PRN (11:25)
[2024-06-19] MEDS ORDERED: Magnesium Hydroxide Conc 10 ML UDC PT PRN (11:25)
[2024-06-19] MEDS ORDERED: fentaNYL citrate 1,000 MCG in NS 80 ML IV SCH (11:50)
[2024-06-19] MEDS ORDERED: Hydrogen Peroxide 1.5 % Solution MT SCH (12:00)
[2024-06-19] MEDS ORDERED: Insulin Regular 100 UNIT/ML 10ML Vial SC SCH (12:00)
[2024-06-19] MEDS ORDERED: NS 250 ML IV PRN (12:00)
[2024-06-19] MEDS ORDERED: MethylPREDNISolone Sod Succ 40 MG VIAL IV SCH (12:00)
--- NOTE | 2024-06-19 12:00 | NUR ---
UPDATE: PT DIFFICULT TO KEEP SEDATED DESPITE PROPOFOL AT 60 MCG/KG/MIN, AND PAIN MANAGEMENT, RASS +3 AT TIMES. CALLED ABOUT SEDATION, ORDER FOR FENTANYL GTT GIVEN. WILL UPDATE NEEDED.
--- NOTE | 2024-06-19 17:31 | NUR ---
SHIFT SUMMARY: PT INTUBATED AND SEDATED, RASS -1 TO +3, ALERT TO VERBAL STIMULI, EASILY AGITATED WITH ANY CARE, HAS BEEN DIFFICULT TO MAKE COMFORTABLE AND SEDATE. PROPOFOL GTT AT 65 MCG/KG/MIN, FENTANYL GTT AT 100 MCG/HR. SBP 140s, MAP>65, LEVOPHED GTT HAS BEEN ON STANDBY SINCE 1330. MONITOR SHOWS SINUS RYTHM RATE 60s, SPO2>95% ON VENT, SETTINGS 16/500/7 AT 45%. OG PATENT INFUSING TUBE FEED AT 20 ML/HR W/30 ML Q4 FLUSHES. CASTILLO PATENT DRAINING YELLOW URINE TO GRAVITY. WILL REPORT TO ONCOMING RN.
[2024-06-19] MEDS ORDERED: Vancomycin HCL 1,000 MG in NS 250 ML IV SCH (18:00)
[2024-06-19] MEDS ORDERED: Protein Supplement 30 ML UD PT SCH (21:00)
[2024-06-19] MEDS ORDERED: Atorvastatin 10 MG Tab PT SCH (21:00)
[2024-06-19] MEDS ORDERED: Lactobacil 2-S.Thermo-Bifido 1 1 Cap PT SCH (21:00)
--- NOTE | 2024-06-19 21:43 | NUR ---
ASSUMPTION OF CARE PT LYING IN BED VENTILATED AND SEDATED. EASILY AROUSABLE TO AGITATED STATE WITH VOICE OR TOUCH/CARE. PT OPENS EYES OCCASIONALLY BUT DOES NOT FOLLOW COMMANDS. IMPREGNATING MACHINE OPERATOR AND MOVEMENT GROSSLY INTACT. BL SOFT RESTRAINTS IN PLACE. PROPOFOL INFUSING AT 65 AND FENTANYL AT 125. HR SINUS RHYTHM IN 60S/70S WITH STABLE TO ELEVATED BP. VENT SETTINGS ACVC 16 500 7.0 45% PRODUCING >95% SATURATIONS. TUBE FEEDS GOING AT 20ML/HR WITH GOAL OF 45. CASTILLO DRAINING CLOUDY YELLOW URINE TO GRAVITY.
[2024-06-20] VITALS (76 sets, daily range): BP systolic 111–165; BP diastolic 42–83
[2024-06-20] MEDS ORDERED: LORazepam 2 MG/ML 1ML Injection IV PRN (01:00)
[2024-06-20] MEDS ORDERED: LORazepam 2 MG/ML 1ML Injection ONE (01:01)
[2024-06-20 04:18] LABS: BASOPHILS ABSOLUTE AUTO 0.01 K/mm3 (0.00-0.23); BASOPHILS PERCENT AUTO 0 % (0-2); EOSINOPHILS PERCENT AUTO 0 % (0-6); Hematocrit 30.1 % (37.0-53.0); Hemoglobin 10.1 g/dL (13.5-17.5); IMMATURE GRAN ABSOLUTE AUTO 0.27 K/mm3 (0.00-0.10); IMMATURE GRAN PERCENT AUTO 2 % (0-1); LYMPHOCYTES ABSOLUTE AUTO 0.92 K/mm3 (0.84-5.20); LYMPHOCYTES PERCENT AUTO 7 % (21-46); MONOCYTES ABSOLUTE AUTO 0.55 K/mm3 (0.16-1.47); MONOCYTES PERCENT AUTO 4 % (4-13); Mean Corpuscular HGB 30.2 pg (26.0-34.0); Mean Corpuscular HGB Conc 33.6 g/dL (31.5-36.5); Mean Corpuscular Volume 90 fL (80-100); Mean Platelet Volume 9.6 fL (9.1-12.4); NEUTROPHILS ABSOLUTE AUTO 10.87 K/mm3 (1.96-9.15); NEUTROPHILS PERCENT AUTO 86 % (41-73); Platelet Count 247 K/mm3 (150-400); RDW Coefficient Variation 12.5 % (11.7-14.2); RDW Standard Deviation 41.2 fL (35.1-46.3); Red Blood Cell Count 3.34 M/mm3 (4.30-5.90); White Blood Cell Count 12.62 K/mm3 (4.00-11.30)
[2024-06-20 04:44] LABS: Albumin, Blood 2.2 g/dL (3.4-5.0); Anion Gap 11 mmol/L (3-11); Blood Urea Nitrogen 24 mg/dL (8-24); Bun/Creatinine Ratio 45.1 (12.0-20.0); CO2, Blood 31 mmol/L (21-32); Chloride, Blood 104 mmol/L (98-108); Creatinine, Blood 0.53 mg/dL (0.60-1.20); Glomerular Filtration Rate 105 (60-); Glucose, Blood 179 mg/dL (70-99); Phosphorus, Blood 1.5 mg/dL (2.5-4.9); Sodium, Blood 143 mmol/L (136-145)
[2024-06-20] MEDS ORDERED: Potassium Phosphate Dibasic 30 MM in Dextrose 5% 500 ML IV ONE (06:20)
--- NOTE | 2024-06-20 07:13 | NUR ---
SHIFT SUMMARY PT LYING IN BED VENTILATED AND SEDATED. EASILY AROUSABLE TO AGITATED STATE WITH VOICE OR TOUCH/CARE. PT OPENS EYES OCCASIONALLY BUT DOES NOT FOLLOW COMMANDS. APPAREL MERCHANDISER AND MOVEMENT GROSSLY INTACT. BL SOFT RESTRAINTS IN PLACE. PROPOFOL INFUSING AT 65 AND FENTANYL AT 125. HR SINUS RHYTHM IN 60S/70S WITH STABLE TO ELEVATED BP. VENT SETTINGS ACVC 16 500 7.0 35% PRODUCING >95% SATURATIONS. TUBE FEEDS GOING AT GOAL OF 45. CASTILLO DRAINING CLOUDY YELLOW URINE TO GRAVITY. NS INFUSING AT 125ML/HR. KPHOS ORDERED BY PROVIDER AFTER LABS THIS MORNING, CURRENTLY INFUSING.
--- NOTE | 2024-06-20 08:29 | NUR ---
AM NOTE... ASSUMED CARE OF PT AT 0700, PT IS INTUBATED AND SEDATED. CURRENT SEDATION IS PROPOFOL AT 65MCG/KG, FENTANYL GTT AT 125MCG/HR PT'S CURRENT RASS IS -1 BUT BECOMES +3 WITH MINIMAL STIMULIATION. PT'S ET TUBE IS 8.0 AND 25 AT THE TEETH, VENT SETTINGS ARE: AC/VC: 16/500/7/35% WITH O2 SATS>95%. L/S ARE CLEAR BUT MOSTLY DIM T/O. PT HAS SMALL AMOUNT OF VERY THICK DOMINGUEZ/YELLOW SECRETIONS WITH ET TUBE SUCTIONING. PT IS IN SR IN THE 80'S-90'S BP IS STABLE WITH MAPS>65. PT HAS 1+ EDEMA TO HIS RLE, AND DEPENDENT EDEMA TO HIS BUE. OG TUBE IS PATENT AND RUNNING TUBE FEEDS AT GOAL OF 45MLS/HR WITH 30MLS WATER FLUSHES Q4HR. BT PRESENT AND HYPOACTIVE, ABD IS SOFT TO PALPATION. CASTILLO IS PATENT AND DRAINING CLEAR YELLOW URINE TO GRAVITY. WILL CONTINUE TO MONITOR.
[2024-06-20] MEDS ORDERED: Cholecalciferol 1000 Unit Tablet (=25MCG) PT SCH (09:00)
[2024-06-20] MEDS ORDERED: NS 1,000 ML IV SCH (11:00)
[2024-06-20] MEDS ORDERED: Insulin Glargine-Yfgn 100 Unit/mL 3 ML SYR SC SCH (13:00)
[2024-06-20] MEDS ORDERED: Insulin Regular 100 UNIT/ML 10ML Vial SC SCH (18:00)
--- NOTE | 2024-06-20 18:04 | NUR ---
SHIFT SUMMARY.... NO ACUTE NEGATIVE CHANGES NOTED THIS SHIFT. PT'S VS HAVE BEEN STABLE. PT CONTINUES TO BE ON PROPOFOL AT 65MCG/KG AND FENTANYL GTT AT 125MCG/HR, PT GETS ANXIOUS AND AGITATED WITH CARE BUT SETTLES DOWN QUICKLY WHEN LEFT ALONE. ORAL AND ET TUBE SECRETIONS HAVE DECREASED FROM LARGE TO SMALL/SCANT T/O THIS SHIFT. PT IS TOLERATING HIS TUBE FEEDS AT GOAL OF 45MLS/HR. NO BM THIS SHIFT. PT'S CASTILLO IS PATENT AND DRAINING "PROPOFOL GREEN" URINE TO GRAVITY. WILL CONTINUE TO MONITOR UNTIL REPORT IS GIVEN TO ONCOMING RN.
[2024-06-21] VITALS (45 sets, daily range): BP systolic 97–164; BP diastolic 50–88
[2024-06-21 05:13] LABS: BASOPHILS ABSOLUTE AUTO 0.02 K/mm3 (0.00-0.23); BASOPHILS PERCENT AUTO 0 % (0-2); EOSINOPHILS PERCENT AUTO 0 % (0-6); Hemoglobin 10.3 g/dL (13.5-17.5); IMMATURE GRAN ABSOLUTE AUTO 0.47 K/mm3 (0.00-0.10); IMMATURE GRAN PERCENT AUTO 3 % (0-1); LYMPHOCYTES ABSOLUTE AUTO 0.83 K/mm3 (0.84-5.20); LYMPHOCYTES PERCENT AUTO 5 % (21-46); MONOCYTES ABSOLUTE AUTO 1.06 K/mm3 (0.16-1.47); MONOCYTES PERCENT AUTO 7 % (4-13); Mean Corpuscular HGB 30.3 pg (26.0-34.0); Mean Corpuscular HGB Conc 34.3 g/dL (31.5-36.5); Mean Corpuscular Volume 88 fL (80-100); Mean Platelet Volume 10.1 fL (9.1-12.4); NEUTROPHILS PERCENT AUTO 85 % (41-73); Platelet Count 286 K/mm3 (150-400); RDW Coefficient Variation 13.1 % (11.7-14.2); RDW Standard Deviation 41.8 fL (35.1-46.3); White Blood Cell Count 15.88 K/mm3 (4.00-11.30)
[2024-06-21 05:41] LABS: Alanine Aminotransfer (ALT/SGP 26 U/L (12-78); Albumin, Blood 2.1 g/dL (3.4-5.0); Albumin/Globulin Ratio 0.8 (0.8-1.8); Alk Phos 54 U/L (50-136); Anion Gap 7 mmol/L (3-11); Aspartate Aminotrans (AST/SGOT 14 U/L (12-37); Bilirubin, Total 0.2 mg/dL (0.1-1.0); Blood Urea Nitrogen 22 mg/dL (8-24); Bun/Creatinine Ratio 36.2 (12.0-20.0); CO2, Blood 32 mmol/L (21-32); Calcium, Blood 8.2 mg/dL (8.5-10.1); Chloride, Blood 106 mmol/L (98-108); Creatinine, Blood 0.61 mg/dL (0.60-1.20); Globulin, Blood 2.8 g/dL (2.2-4.0); Glomerular Filtration Rate 101 (60-); Glucose, Blood 203 mg/dL (70-99); Phosphorus, Blood 2.4 mg/dL (2.5-4.9); Potassium, Blood 3.3 mmol/L (3.5-5.5); Sodium, Blood 142 mmol/L (136-145); Total Protein, Blood 4.9 g/dL (6.4-8.2); Vancomycin, Trough 15.1 ug/mL (5.0-10.0)
--- NOTE | 2024-06-21 05:56 | NUR ---
SHIFT SUMMARY PATIENT SLEPT MOST OF NIGHT. PATIENT DOES OPEN EYES AND ANSWER YES OR NO QUESTIONS. PATIENT INTUBATED WITH 8.0 ET TUBE AT 25CM AT TEETH. PATEINT DOES NOT FIGHT VENT WHICH SETTINGS ARE 16/500/70/30%. PATIENT ABLE TO SQUEEZE HANDS. NURSE TRIED TO LOWER PROPOFOL TO 60MCG/HR FROM 65MCG/HE LASTED 5 MINUTES PATEINT BEGAN SHAKING HEAD AND GRIMACCING FACE. NURSE TURN IT BACK TO 65MCG/HR. FENT DRIP IS AT 125MCG/HR. TUBE FEED IS AT GOAL 45ML WITH 30ML WATER FLUSH. PATIENT HAS CASTILLO DRAINING TO GRAVITY. FAMILY CAME IN AT THE BEGINING OF SHIFT PATEINT OPENED EYES TO THEIR VOICES. HAD BILATERAL RESTRAINTS ON WRISTS. CALL LIGHT WITHIN REACH.
[2024-06-21] MEDS ORDERED: Potassium Phosphate Dibasic 30 MM in Dextrose 5% 500 ML IV STA (07:34)
[2024-06-21] MEDS ORDERED: Potassium Chloride 20 MEQ/15 ML UDC PT SCH (10:00)
[2024-06-21] MEDS ORDERED: Furosemide 10 MG / ML 2ML Vial IV SCH (14:00)
--- NOTE | 2024-06-21 18:01 | NUR ---
DAY SHIFT SUMMARY PT HAS BEEN RESPONDING TO VOICE THIS SHIFT FOLLOWING COMMANDS AND NODDING/SHAKING HIS HEAD FOR YES OR NO QUESTIONS. PT DOING WELL W SBT THIS SHIFT W PS 12/7 30% FIO2 FOR SEVERAL HOURS. PT ANXIOUS AT TIMES BUT ABLE TO BE CALMED DOWN BY STAFF AT BEDSIDE W/O ADDITIONAL MEDICATION. PT PLACED BACK ON AC/VC 16/500/7.0 W 30% FIO2 THIS EVENING BY RT. PT REMAINS ON PROPOFOL AND FENTANYL GTT'S. PT TOLERATING TF AT GOAL RATE OF 45 ML/HR. PT'S BP WNL AND STABLE THIS SHIFT. PT MONITOR SHOWING SR 70'S THIS SHIFT. PT GIVEN 1 DOSE IV LASIX THIS SHIFT AND CASTILLO HAVING >3L OUTPUT THIS SHIFT. PT'S SPOUSE AT BEDSIDE THIS AM AND UPDATED ON PT'S CONDITION BY PROVIDER. WILL REPORT TO ONCOMING RN.
[2024-06-22] VITALS (34 sets, daily range): BP systolic 91–172; BP diastolic 50–77
[2024-06-22 03:42] LABS: BASOPHILS ABSOLUTE AUTO 0.05 K/mm3 (0.00-0.23); BASOPHILS PERCENT AUTO 0 % (0-2); EOSINOPHILS PERCENT AUTO 0 % (0-6); Hematocrit 31.9 % (37.0-53.0); Hemoglobin 10.7 g/dL (13.5-17.5); IMMATURE GRAN ABSOLUTE AUTO 0.82 K/mm3 (0.00-0.10); IMMATURE GRAN PERCENT AUTO 5 % (0-1); LYMPHOCYTES ABSOLUTE AUTO 1.06 K/mm3 (0.84-5.20); LYMPHOCYTES PERCENT AUTO 6 % (21-46); MONOCYTES ABSOLUTE AUTO 0.96 K/mm3 (0.16-1.47); MONOCYTES PERCENT AUTO 5 % (4-13); Mean Corpuscular HGB 30.2 pg (26.0-34.0); Mean Corpuscular HGB Conc 33.5 g/dL (31.5-36.5); Mean Corpuscular Volume 90 fL (80-100); Mean Platelet Volume 10.1 fL (9.1-12.4); NEUTROPHILS ABSOLUTE AUTO 14.98 K/mm3 (1.96-9.15); NEUTROPHILS PERCENT AUTO 84 % (41-73); NRBC ABSOLUTE 0.02 K/mm3 (0.00-0.02); NRBC Auto 0.1 /100 WBC (0.0-0.2); Platelet Count 290 K/mm3 (150-400); RDW Coefficient Variation 13.3 % (11.7-14.2); RDW Standard Deviation 43.7 fL (35.1-46.3); Red Blood Cell Count 3.54 M/mm3 (4.30-5.90); White Blood Cell Count 17.87 K/mm3 (4.00-11.30)
[2024-06-22 04:05] LABS: Albumin, Blood 2.1 g/dL (3.4-5.0); Albumin/Globulin Ratio 0.8 (0.8-1.8); Bilirubin, Total 0.3 mg/dL (0.1-1.0); Bun/Creatinine Ratio 42.4 (12.0-20.0); Creatinine, Blood 0.59 mg/dL (0.60-1.20); Globulin, Blood 2.7 g/dL (2.2-4.0); Phosphorus, Blood 2.9 mg/dL (2.5-4.9); Total Protein, Blood 4.8 g/dL (6.4-8.2)
--- NOTE | 2024-06-22 06:06 | NUR ---
SHIFT SUMMARY PATIENT RESTLESS AT START OF SHIFT, INCREASED PROPPOFOL TO 55MCG FROM 50MCG. PATIENT ALSO HAD PRN ATIVAN 0.5MG FOR AGIATATION. PATIENT SLEPT THROUGH THE REST OF SHIFT BUT WOULD STILL OPEN EYES AND SHAKE HIS HEAD TO ANSWER QUESTIONS. SBP 140-150'S HR 70-80'S, HAS CASTILLO DRAINING TO GRAVITY. HAD A BEDBATH AND TOLERATED WELL. CENTRAL LINE IN RIJ AND A 20G IN BRUNA. ET TUBE 8.0 AT 25 CM AT TEETH VENT SETTINGS 16/500/7/30%. BILATERAL SOFT RESTRAINTS ON AND CALL LIGHT PLACED WITHIN REACH.
--- NOTE | 2024-06-22 14:27 | NUR ---
PT DISCHARGED THE PT VERBALIZED UNDERSTANDING OF THE DC ORDERS. PT WAS TRANSFERED OUT VIA WHEELCHAIR ACCOMPANIED BY THE SATELLITE INSTALLATION TECHNICIAN.
[2024-06-22] MEDS ORDERED: Insulin Regular 100 UNIT/ML 10ML Vial SC SCH (16:30)
--- NOTE | 2024-06-22 17:53 | NUR ---
DAY SHIFT SUMMARY PT EXTUBATED THIS AM AND HAS MAINTAINED SPO2 >94% ON 3L OXY-MASK THIS SHIFT. PT HAS BEEN ALERT BUT OCCASIONALLY CONFUSED THIS SHIFT. PT USING THE CALL LIGHT TO MAKE HIS NEEDS KNOWN. PT UP IN CHAIR FOR SEVRAL HOURS BEFORE RETURNING TO BED VIA THE CEILING LIFT. PT MONITOR SHOWING SR 80'S. BP WNL AND STABLE. PT AFEBRIEL THIS SHIFT. PT W RESTING TREMOR THAT DOES AFFECT HIS ABILITY TO DRINK FLUIDS BY HIMSELF. PT W MINIMAL APPETTITE BUT BEING ENCOURAGED TO EAT. PT'S STATES SHE IS GOING TO BRING HIS DENTURES IJN FROM [facility] THIS EVENING. PT VERY WEAK BUT IS BEING ENCOURAGED TO ASSIST W TURNING IN BED. PT'S CENTRAL LINE DC'D THIS SHIFT. PT'S CASTILLO PATENT AND DRAINING VERY GOOD URINE OUTPUT THIS SIFT, SEE I&O'S FOR DETAILS. WILL REPORT TO ONCOMING RN.
--- NOTE | 2024-06-22 19:00 | NUR ---
ASSUMED CARE ASSUMED CARE OF PATIENT. PT IS AWAKE AND ALERT. ORIENTED TO ALL EXCEPT TIME/DATE. DOES HAVE PERIODS OF CONFUSED CONVERSATION AT TIMES. MOVES ALL EXTREMTIES SPONTANEOUSLY AND TO COMMAND. RIGHT EGG CASER IS SLIGHTLY WEAKER THAN LEFT. GENERAL WEAKNESS NOTED. TREMORS NOTED IN UPPER EXTREMITIES- PT STATES THIS IS HIS BASELINE. MONITOR SHOWS ST, RATE 100s. BP STABLE. OXYMASK AT 3L. SATS STABLE. RESPIRATIONS EVEN AND UNLABORED. DENIES C/O SOB/DYSPNEA. CASTILLO PATENT AND DRAINING TO GRAVITY- LIGHT YELLOW URINE. SEE SHIFT ASSESSMENT FOR FULL ASSESSMENT.
[2024-06-22] MEDS ORDERED: MethylPREDNISolone Sod Succ 40 MG VIAL IV SCH (21:00)
[2024-06-22] MEDS ORDERED: Furosemide 10 MG / ML 2ML Vial IV SCH (21:00)
[2024-06-23] VITALS (13 sets, daily range): BP systolic 131–149; BP diastolic 58–67
[2024-06-23 03:51] LABS: BASOPHILS ABSOLUTE AUTO 0.06 K/mm3 (0.00-0.23); BASOPHILS PERCENT AUTO 0 % (0-2); EOSINOPHILS PERCENT AUTO 0 % (0-6); Hematocrit 33.9 % (37.0-53.0); Hemoglobin 10.9 g/dL (13.5-17.5); IMMATURE GRAN ABSOLUTE AUTO 0.83 K/mm3 (0.00-0.10); IMMATURE GRAN PERCENT AUTO 4 % (0-1); LYMPHOCYTES ABSOLUTE AUTO 1.78 K/mm3 (0.84-5.20); LYMPHOCYTES PERCENT AUTO 10 % (21-46); MONOCYTES ABSOLUTE AUTO 1.27 K/mm3 (0.16-1.47); MONOCYTES PERCENT AUTO 7 % (4-13); Mean Corpuscular HGB 29.9 pg (26.0-34.0); Mean Corpuscular HGB Conc 32.2 g/dL (31.5-36.5); Mean Corpuscular Volume 93 fL (80-100); Mean Platelet Volume 10.3 fL (9.1-12.4); NEUTROPHILS ABSOLUTE AUTO 14.78 K/mm3 (1.96-9.15); NEUTROPHILS PERCENT AUTO 79 % (41-73); NRBC ABSOLUTE 0.02 K/mm3 (0.00-0.02); NRBC Auto 0.1 /100 WBC (0.0-0.2); Platelet Count 279 K/mm3 (150-400); RDW Coefficient Variation 13.6 % (11.7-14.2); RDW Standard Deviation 45.9 fL (35.1-46.3); Red Blood Cell Count 3.64 M/mm3 (4.30-5.90); White Blood Cell Count 18.72 K/mm3 (4.00-11.30)
[2024-06-23 04:22] LABS: Albumin, Blood 2.4 g/dL (3.4-5.0); Albumin/Globulin Ratio 0.8 (0.8-1.8); Bilirubin, Total 0.3 mg/dL (0.1-1.0); Bun/Creatinine Ratio 38.1 (12.0-20.0); Calcium, Blood 8.4 mg/dL (8.5-10.1); Creatinine, Blood 0.71 mg/dL (0.60-1.20); Globulin, Blood 2.9 g/dL (2.2-4.0); Magnesium, Blood 2.2 mg/dL (1.6-2.4); Phosphorus, Blood 3.8 mg/dL (2.5-4.9); Potassium, Blood 4.1 mmol/L (3.5-5.5); Total Protein, Blood 5.3 g/dL (6.4-8.2)
--- NOTE | 2024-06-23 06:01 | NUR ---
SHIFT SUMMARY NO ACUTE CHANGES DURING NOC. SLEPT INTERMITTENTLY. ORIENTED EXCEPT TO TIME/DATE. DOES HAVE OCCASIONAL CONFUSED CONVERSATION. MOVES ALL EXTREMITIES. ATTEMPTS TO ASSIST WITH REPOSITIONING. GENERAL WEAKNESS CONTINUES. BUE TREMORS CONTINUE. VSS. AFEBRILE. REMAINS ON 3L OXYMASK. PT REQUESTING OXYMASK OVER NASAL CANNULA. TOLERATING SIPS OF WATER. CASTILLO PATENT AND DRAINING TO GRAVITY. MEDICATED WITH FENTANYL 50MCG IV X 3 DOSES FOR C/O RIB/CHEST/GENERAL PAIN. PLAN OF CARE ONGOING. WILL REPORT TO ONCOMING RN WHEN AVAILABLE.
[2024-06-23] MEDS ORDERED: Dextrose 5% 500 ML IV SCH (07:40)
[2024-06-23] MEDS ORDERED: OxyCODONE HCL 5 MG TAB PO PRN (10:20)
[2024-06-23] MEDS ORDERED: Docusate Sodium 100 MG UDC PO PRN (12:20)
[2024-06-23] MEDS ORDERED: Magnesium Hydroxide Conc 10 ML UDC PO PRN (12:20)
[2024-06-23] MEDS ORDERED: Lisinopril 20 MG Tab PO SCH (12:45)
[2024-06-23] MEDS ORDERED: Potassium Chloride 20 MEQ/15 ML UDC PO SCH (12:45)
--- NOTE | 2024-06-23 14:58 | NUR ---
PT ARRIVED TO ROOM AT 1405 AND WAS TRANFERED WITH SLIDER SHEET TO BED. PT AOX4 AND COOOPERATIVE OF CARE. PT ABLE TO HELP ROLL IN BED. CASTILLO IS PATIENT NO DISTRESS NOTED. WILL CONTINUE TO MONITOR.
--- NOTE | 2024-06-23 16:19 | NUR ---
NO ACUTE CHANGES AOX4 AND COOPERATIVE OF CARE. PT REALY TRIES TO HELP BE TURNED. USES CALL LIGHT APPROPRIATELY. CALL LIGHT WITHIN REACH WILL CONTINUE TO MONITOR.
[2024-06-23] MEDS ORDERED: Melatonin 5 MG Tablet PO PRN (20:50)
--- NOTE | 2024-06-23 20:50 | NUR ---
NEW T-ORDER FROM ON-CALL HOSPITALIST RUDOLPH: MELATONIN 5MG PO QHS PRN. ENTERED TO [employer], SEE EMAR. NO ADDITIONAL NEW ORDERS AT THIS TIME.
[2024-06-23] MEDS ORDERED: Atorvastatin 10 MG Tab PO SCH (21:00)
[2024-06-23] MEDS ORDERED: Lactobacil 2-S.Thermo-Bifido 1 1 Cap PO SCH (21:00)
[2024-06-23] MEDS ORDERED: NS 250 ML IV PRN (23:55)
--- NOTE | 2024-06-24 00:34 | NUR ---
SHIFT SUMMARY UNTIL MIDNIGT, THEN HANDOFF TO RN SACHIN AT 0000. PT IS A&O X4, ABLE TO MAKE HIS NEEDS KNOWN AND COOPERATIVE WITH CARE. PT IS USING NASAL CANNULA AND OXIMASK, 3 LITERS. CONTINUOUS PULSE OXIMETER, O2 SAT'S>93%. RT BY THE BEDSIDE FOR TX. HS B. PT C/O ALL OVER BODY PAIN 01/27. MEDICATED WITH PRN PO OXYCODONE 10MG. PT REPORTS EFFECTIVE. LUNG SOUNDS COARSE PER AUSCULTATION. NEW ORDER FOR MELATONIN PO PRN QHS OBTAINED FROM THE ON-CALL HOSPITALIST, PT C/O INSOMNIA. IV ABX INFUSED ORDERED. CASTILLO DRAINING TEA COLOR URINE>1L BEFORE MIDNIGHT. PT USING BEDPAN FOR BM DURING THIS SHIFT. PT REPORTS ATTEMPTING TO STAND UP WITH PT BY THE BEDISIDE DURING THE DAY SHIFT, BUT IS TOO WEAK AT THE MOMENT. ENCOURAGED Q2HR REPOSITIONING. NO ACUTE CHANGES OR EVENTS FROM THE START OF THE SHIFT UNTIL MIDNIGHT. THIS NURSE HANDED OFF THE PT CARE TO RN SACHIN AT MIDNIGHT. BED AT THE LOWEST POSITION, CALL LIGHT WITHIN REACH.
[2024-06-24 02:43] VITALS: BP 131/56
--- NOTE | 2024-06-24 04:21 | NUR ---
SHIFT SUMMARY, PATIENT MEDICATED FOR PAIN. TELE SR @ 77. HAD BM ON BEDPAN.
[2024-06-24 05:15] LABS: BASOPHILS ABSOLUTE AUTO 0.02 K/mm3 (0.00-0.23); BASOPHILS PERCENT AUTO 0 % (0-2); EOSINOPHILS ABSOLUTE AUTO 0.08 K/mm3 (0.00-0.68); EOSINOPHILS PERCENT AUTO 1 % (0-6); Hematocrit 32.4 % (37.0-53.0); IMMATURE GRAN ABSOLUTE AUTO 0.58 K/mm3 (0.00-0.10); IMMATURE GRAN PERCENT AUTO 4 % (0-1); LYMPHOCYTES ABSOLUTE AUTO 2.79 K/mm3 (0.84-5.20); LYMPHOCYTES PERCENT AUTO 17 % (21-46); MONOCYTES ABSOLUTE AUTO 1.31 K/mm3 (0.16-1.47); MONOCYTES PERCENT AUTO 8 % (4-13); Mean Corpuscular HGB 30.6 pg (26.0-34.0); Mean Corpuscular Volume 90 fL (80-100); Mean Platelet Volume 10.4 fL (9.1-12.4); NEUTROPHILS ABSOLUTE AUTO 11.41 K/mm3 (1.96-9.15); NEUTROPHILS PERCENT AUTO 71 % (41-73); Platelet Count 209 K/mm3 (150-400); RDW Coefficient Variation 13.6 % (11.7-14.2); RDW Standard Deviation 43.9 fL (35.1-46.3); Red Blood Cell Count 3.59 M/mm3 (4.30-5.90); White Blood Cell Count 16.19 K/mm3 (4.00-11.30)
[2024-06-24 06:54] LABS: Bun/Creatinine Ratio 35.8 (12.0-20.0); Calcium, Blood 8.5 mg/dL (8.5-10.1); Creatinine, Blood 0.7 mg/dL (0.60-1.20); Magnesium, Blood 2.1 mg/dL (1.6-2.4); Phosphorus, Blood 2.9 mg/dL (2.5-4.9); Potassium, Blood 4.1 mmol/L (3.5-5.5)
[2024-06-24 07:16] VITALS: BP 118/77
[2024-06-24] MEDS ORDERED: Cholecalciferol 1000 Unit Tablet (=25MCG) PO SCH (09:00)
[2024-06-24] MEDS ORDERED: PredniSONE 20 MG Tab PO SCH (09:00)
[2024-06-24] MEDS ORDERED: TraZODone HCl 50 MG Tab PO PRN (11:25)
[2024-06-24 15:31] VITALS: BP 136/68
--- NOTE | 2024-06-24 17:26 | NUR ---
PT ALERT AND ORIENTED X3, FORGETFUL WITH DATE. VSS, SR 80S ON TELE, 3L O2 VIA OXYMASK AND NC WHILE EATING, CONTINUOUS PULSE OX SATTING 93-96%. CASTILLO REMOVED PER MD ORDER, URINATING IN URINAL. PT ATE ALMOST ENTIRE BREAKFAST, BUT DECLINED LUNCH. PT REFUSING INSULIN, STATES THAT HE NORMALLY TAKES METFORMIN AND DOES NOT WISH TO TAKE INSULIN, RN EDUCATED PT ON INSULIN. PATIENT WORKED WITH PT AND STOOD AT EDGE OF BED. ONE SMALL BM THIS SHIFT. DRESSING CHANGED ON COCCYX WOUND (REDNESS WITH SMALL OPENING) BARRIER CREAM AND MEPILEX APPLIED. PT COOPERATIVE WITH CARE, CALLS APPROPRIATLY.
[2024-06-24 19:42] VITALS: BP 140/72
[2024-06-25 02:37] VITALS: BP 132/69
--- NOTE | 2024-06-25 05:47 | NUR ---
SHIFT SUMMARY PATIENT IS ALERT AND ORIENTED. PATIENT HAS HAD NO ACUTE EVENTS THIS SHIFT. VITAL SIGNS REVIEWED. PATIENT HAS BEEN ON 3L NC ALL SHIFT. PATIENT HAS REPORTED PAIN AND MEDICATED PER EMAR. PATIENT HAS HAD NO COMPLAINTS OF PAIN, NAUSEA OR SOB THIS SHIFT. BED IN LOCKED AND LOWEST POSITION. CALL LIGHT IN PLACE.
[2024-06-25] MEDS ORDERED: Pantoprazole Sodium 40 MG Tab PO SCH (06:00)
[2024-06-25] MEDS ORDERED: Ipratropium/Albuterol SulF 2.5-0.5MG/3 ML Amp INH SCH (07:00)
[2024-06-25 07:28] LABS: BASOPHILS ABSOLUTE AUTO 0.05 K/mm3 (0.00-0.23); BASOPHILS PERCENT AUTO 0 % (0-2); EOSINOPHILS ABSOLUTE AUTO 0.12 K/mm3 (0.00-0.68); EOSINOPHILS PERCENT AUTO 1 % (0-6); Hematocrit 39.7 % (37.0-53.0); Hemoglobin 12.7 g/dL (13.5-17.5); IMMATURE GRAN PERCENT AUTO 2 % (0-1); LYMPHOCYTES ABSOLUTE AUTO 2.52 K/mm3 (0.84-5.20); LYMPHOCYTES PERCENT AUTO 13 % (21-46); MONOCYTES ABSOLUTE AUTO 1.67 K/mm3 (0.16-1.47); MONOCYTES PERCENT AUTO 9 % (4-13); Mean Corpuscular HGB 30.1 pg (26.0-34.0); Mean Corpuscular Volume 94 fL (80-100); NEUTROPHILS ABSOLUTE AUTO 14.21 K/mm3 (1.96-9.15); NEUTROPHILS PERCENT AUTO 75 % (41-73); Platelet Count 229 K/mm3 (150-400); RDW Coefficient Variation 13.5 % (11.7-14.2); RDW Standard Deviation 45.7 fL (35.1-46.3); Red Blood Cell Count 4.22 M/mm3 (4.30-5.90); White Blood Cell Count 18.97 K/mm3 (4.00-11.30)
[2024-06-25 07:30] VITALS: BP 131/74
[2024-06-25 07:51] LABS: Bun/Creatinine Ratio 38.7 (12.0-20.0); Calcium, Blood 8.7 mg/dL (8.5-10.1); Creatinine, Blood 0.57 mg/dL (0.60-1.20); Potassium, Blood 3.9 mmol/L (3.5-5.5)
[2024-06-25] MEDS ORDERED: Atorvastatin 10 MG Tab PO SCH (09:00)
[2024-06-25] MEDS ORDERED: Potassium Chloride 20 MEQ TabCR PO SCH (09:00)
[2024-06-25 15:47] VITALS: BP 139/87
[2024-06-25 17:49] LABS: Source, Urine Foley catheter
[2024-06-25 17:54] LABS: Bilirubin, Urine Neg (Neg); Blood, Urine 2+ (Neg); Glucose Qualitative, Urine Neg (Neg); Ketones, Urine Neg (Neg); Leukocyte Esterase, Urine Neg (Neg); Nitrite, Urine Neg (Neg); Protein, Urine Neg (Neg); Specific Gravity, Urine 1.005 (1.003-1.022); Urobilinogen, Urine NORM (Normal)
[2024-06-25 18:15] LABS: Appearance, Urine Hazy (Clear); Color, Urine Pale Yellow (P-Yellow)
[2024-06-25 18:16] LABS: Amorphous Mod (0-Heavy); Bacteria Mod /hpf; Squamous Epithelial Cells Few /hpf (Few); Transitional Epithelial Cells Rare /hpf (0-Rare); White Blood Cells, Urine 0-2 /hpf (0-5)
--- NOTE | 2024-06-25 18:39 | NUR ---
PATIENT ALERT AND ORIENTED X 4, VSS, STARTED ON 3 L O2 ON OXYMASK, THIS AFTERNOON, RT WAS CONCERNED WITH PT O2 DEMANDS INCREASING UP TO 9L O2. MD NOTIFIED, LUNGS CLEAR, PT DID NOT APPEAR DISTRESSED, ORDERED TO INSERT CASTILLO IF BLADDER SCAN SHOWED OVER 300ML OF URINE, 317 ML SHOWN. CASTILLO INSERTED, PT DRAINED OVER 300 ML OF URINE, O2 SATS IMPROVED AND O2 DEMAND GRADUALLY DECREASED TO 4L OXYMASK. PT GOT UP IN CHAIR WITH THERAPY. 1 SMALL BM THIS SHIFT. PAIN CONTROLLED WITH PRN OXYCONTIN.
[2024-06-25 19:13] VITALS: BP 155/73
[2024-06-26 03:32] VITALS: BP 128/99
--- NOTE | 2024-06-26 05:32 | NUR ---
SHIFT SUMMARY PATIENT IS ALERT AND ORIENTED. PATIENT HAS HAD NO ACUTE EVENTS THIS SHIFT. VITAL SIGNS REVIEWED. PATIENT HAS HAD COMPLAINTS OF PAIN AND MEDICATED PER EMAR. PATIENT HAS HAD NO COMPLAINTS OF SOB, NAUSEA OR VOMITTING THIS SHIFT. CASTILLO PATENT AND DRAINING HAYLEY URINE. PATIENT HAS BEEN ON 4L VENTIMASK ALL SHIFT. BED IN LOCKED AND LOWEST POSITION. CALL LIGHT IN PLACE.
--- NOTE | 2024-06-26 06:14 | NUR ---
NURSE NOTE PATIENT REQUESTED RT TREATMENT. PATIENT 02 INCREASED TO 13L VENTIMASK BY RT. SATTING 90 AND HIGHER
[2024-06-26 07:31] VITALS: BP 141/59
--- NOTE | 2024-06-26 08:05 | NUR ---
RN CALLED TO REPORT A CHANGE IN PT CONDITION. FROM NOC SHIFT NURSE, PT HAS HAD INCREASED NEEDS FOR OXYGEN, GOING FROM 4LPM TO 13LPM. THIS MORNING, HE HAS CRACKLES THROUGH OUT THE LUNG RAMAN. CONTINUOUS PULSE OX IS 88 - 94%, PT IS NOT MOVING AROUND ALOT IN BED, BECOMES SOB WITH SPEAKING. CXR DONE THIS MORNING, PENDING RESULTS. RESP THERAPY IS SETTING PT UP ON HEATED HI FLOW OXYGEN VIA AIRVO. WITH ORDERS FOR VBG.
[2024-06-26 08:25] LABS: BASOPHILS ABSOLUTE AUTO 0.03 K/mm3 (0.00-0.23); BASOPHILS PERCENT AUTO 0 % (0-2); EOSINOPHILS ABSOLUTE AUTO 0.14 K/mm3 (0.00-0.68); EOSINOPHILS PERCENT AUTO 1 % (0-6); Hematocrit 38.4 % (37.0-53.0); Hemoglobin 12.4 g/dL (13.5-17.5); IMMATURE GRAN ABSOLUTE AUTO 0.25 K/mm3 (0.00-0.10); IMMATURE GRAN PERCENT AUTO 1 % (0-1); LYMPHOCYTES ABSOLUTE AUTO 2.12 K/mm3 (0.84-5.20); LYMPHOCYTES PERCENT AUTO 10 % (21-46); MONOCYTES ABSOLUTE AUTO 1.63 K/mm3 (0.16-1.47); MONOCYTES PERCENT AUTO 7 % (4-13); Mean Corpuscular HGB 30.1 pg (26.0-34.0); Mean Corpuscular HGB Conc 32.3 g/dL (31.5-36.5); Mean Corpuscular Volume 93 fL (80-100); Mean Platelet Volume 10.1 fL (9.1-12.4); NEUTROPHILS ABSOLUTE AUTO 17.79 K/mm3 (1.96-9.15); NEUTROPHILS PERCENT AUTO 81 % (41-73); Platelet Count 264 K/mm3 (150-400); RDW Coefficient Variation 13.3 % (11.7-14.2); RDW Standard Deviation 45.1 fL (35.1-46.3); Red Blood Cell Count 4.12 M/mm3 (4.30-5.90); White Blood Cell Count 21.96 K/mm3 (4.00-11.30)
[2024-06-26 08:44] LABS: Albumin, Blood 2.8 g/dL (3.4-5.0); Albumin/Globulin Ratio 0.9 (0.8-1.8); Bilirubin, Total 0.5 mg/dL (0.1-1.0); Bun/Creatinine Ratio 38.3 (12.0-20.0); Creatinine, Blood 0.57 mg/dL (0.60-1.20); Globulin, Blood 3.2 g/dL (2.2-4.0); Potassium, Blood 3.7 mmol/L (3.5-5.5)
[2024-06-26] MEDS ORDERED: Furosemide 10 MG/ML 4ML Vial IV SCH (09:00)
[2024-06-26] MEDS ORDERED: PredniSONE 10 MG Tab PO SCH (09:00)
[2024-06-26] MEDS ORDERED: MetFORMIN HCl 500 mg PO SCH (09:00)
[2024-06-26 09:48] LABS: Base Excess Venous 16.3 mmol/L; Bicarbonate Venous 37.7 mmol/L (24.0-30.0); PCO2 Venous 57.1 mmHg (38-42); pH Blood Venous 7.46 (7.34-7.37)
--- NOTE | 2024-06-26 11:01 | NUR ---
RN CONSULTED WITH SPEECH THERAPY YOLANDA [place] PT TOLERATED THE SWALLOWING EVAL WELL. HE IS CONTINUED ON A SOFT, BITE SIZE DIET WITH THIN LIQUIDS. YOLANDA RECOMMENDS THAT IF THE OXYGEN REQUIREMENTS INCREASE TO 50LPM VIA HEATED HI-FLOW, THAT WE HOLD THE PO INTAKE UNTIL OXYGEN RATE CAN BE TITRATED DOWN. YOLANDA REPORTS SOME POSSIBLE LEFT SIDED FACIAL WEAKNESS THAT WILL NEED TO MONITORED.
[2024-06-26] MEDS ORDERED: Insulin Regular 100 UNIT/ML 10ML Vial SC SCH (11:30)
[2024-06-26] MEDS ORDERED: Piperacillin/Tazobactam Sod 4.5 GM in NS 100 ML IV SCH (12:00)
[2024-06-26 15:43] VITALS: BP 104/58
[2024-06-26 19:12] VITALS: BP 119/61
--- NOTE | 2024-06-26 19:44 | NUR ---
NATTY IS NOW ON AN AIRVO, HEATED HI FLOW OXYGEN. CURRENT SETTINGS 40l @ 45%. HE IS ON BEDREST SECONDARY TO WEAKNESS AND DYSPNEA. HE HAS MEPILEX ON HIS COCCYX. IV ACCESS TO RIGHT FOREARM. LUNG SOUNDS ARE COARSE AND CRACKLES THROUGH OUT. HIS WORK OF BREATHING IMPROVED THROUGH OUT THE SHIFT, HE IS REPORTING FEELING BETTER.
--- NOTE | 2024-06-27 03:40 | NUR ---
SHIFT SUMMARY PT ALERT ORIENTED CALLS APPROPRIATELY. VSS. CONTINUES ON THE HEATED HI TELLY OXYGEN AT 40L AND 45% FIO2. CONTINUES ON A CONTINUOUS PULSE OX. C/O GENERALIZED PAIN MEDICATED WITH OXYCODONE WITH GOOD PAIN RELIEF. HES BEEN TRYING TO USE THE IS. CONTINUES WITH A CASTILLO CATHETER DRAINING DARK YELLOW URINE. FS DONE BEFORE MEALS. HE HAD A HARD TIME GOING TO SLEEP SO HE GOT MELATONIN WITH GOOD RESULTS. REMAINS ON ZOSYN Q6HR. REMAINS WITH CRACKLES BILATERAL. RESTING IN BED AT THIS TIME WITH CALL LIGHT IN REACH
[2024-06-27 03:46] VITALS: BP 112/74
[2024-06-27 07:24] VITALS: BP 143/62
[2024-06-27 07:26] LABS: BASOPHILS ABSOLUTE AUTO 0.03 K/mm3 (0.00-0.23); BASOPHILS PERCENT AUTO 0 % (0-2); EOSINOPHILS PERCENT AUTO 1 % (0-6); Hematocrit 36.8 % (37.0-53.0); Hemoglobin 12.2 g/dL (13.5-17.5); IMMATURE GRAN PERCENT AUTO 1 % (0-1); LYMPHOCYTES PERCENT AUTO 16 % (21-46); MONOCYTES ABSOLUTE AUTO 1.62 K/mm3 (0.16-1.47); MONOCYTES PERCENT AUTO 10 % (4-13); Mean Corpuscular HGB 30.3 pg (26.0-34.0); Mean Corpuscular HGB Conc 33.2 g/dL (31.5-36.5); Mean Corpuscular Volume 92 fL (80-100); NEUTROPHILS ABSOLUTE AUTO 11.93 K/mm3 (1.96-9.15); NEUTROPHILS PERCENT AUTO 72 % (41-73); Platelet Count 233 K/mm3 (150-400); RDW Coefficient Variation 13.5 % (11.7-14.2); RDW Standard Deviation 44.4 fL (35.1-46.3); Red Blood Cell Count 4.02 M/mm3 (4.30-5.90); White Blood Cell Count 16.48 K/mm3 (4.00-11.30)
[2024-06-27 07:42] LABS: Bun/Creatinine Ratio 32.8 (12.0-20.0); Calcium, Blood 8.7 mg/dL (8.5-10.1); Creatinine, Blood 0.7 mg/dL (0.60-1.20); Potassium, Blood 3.5 mmol/L (3.5-5.5)
[2024-06-27] MEDS ORDERED: Potassium Chloride 20 MEQ TabCR PO ONE (11:00)
--- NOTE | 2024-06-27 15:29 | NUR ---
1400: PT WAS ESCORTED TO THE CT BY LICENSED LOAN OFFICER ASSISTANT, VIA WHEELCHAIR, USING OXYGEN 6LPM VIA NASAL CANULA. PT TOLERATED PROCEDURE WELL. 1430: UPON RETURNING TO THE UNIT, PT WAS ASSISTED TO THE CHAIR AND ENCOURAGED TO REMAIN UP TO PROMOTE MOBILITY. 1500: PT HAD A SMALL BM ON THE BSC AND WAS ASSISTED BACK TO BED BY PT REQUEST. HE IS A 2 PERSON ASSIST WITH GB AND FWW. HE IS VERY DECONDITIONED AND CAN ONLY TOLERATE A PIVOT TRANSFER FOR A SHORT TIME.
[2024-06-27 16:10] VITALS: BP 121/57
--- NOTE | 2024-06-27 17:25 | NUR ---
NATTY WAS STARTED ON A 2,000 ML WATER RESTRICTION TODAY. HE IS AGREEABLE TO THE PLAN. HE TOLERATED GOING TO A CT SCAN VIA WHEELCHAIR AND OXYGEN AT 6LPM VIA NC. HE AGREED TO BE UP TO THE CHAIR, SITTING FOR AT LEAST ONE HOUR, AND THEN TOLERATED HAVING A SMALL BM ON THE BEDSIDE COMMODE. HE IS A 2 PERSON ASSIST WITH A GB. HE IS DECONDITIONED, AND STIFF, MOVES SLOWLY. CT STUDY SHOWED LEFT LOWER LOBE PNA, AND SOME ATELECTASIS. SIMILAR TO PREVIOUS CT SCANS. CONTINUES ON HEATED HI FLOW OXYGEN AT 30LPM, 34% FiO2. A &O X4. ABLE TO USE CALL LIGHT APPROPRIATELY.
[2024-06-27 19:26] VITALS: BP 100/61
[2024-06-28 05:02] VITALS: BP 129/97
[2024-06-28 05:19] LABS: BASOPHILS ABSOLUTE AUTO 0.03 K/mm3 (0.00-0.23); BASOPHILS PERCENT AUTO 0 % (0-2); EOSINOPHILS ABSOLUTE AUTO 0.07 K/mm3 (0.00-0.68); EOSINOPHILS PERCENT AUTO 1 % (0-6); Hematocrit 36.3 % (37.0-53.0); Hemoglobin 11.9 g/dL (13.5-17.5); IMMATURE GRAN ABSOLUTE AUTO 0.15 K/mm3 (0.00-0.10); IMMATURE GRAN PERCENT AUTO 1 % (0-1); LYMPHOCYTES PERCENT AUTO 15 % (21-46); MONOCYTES ABSOLUTE AUTO 1.47 K/mm3 (0.16-1.47); MONOCYTES PERCENT AUTO 10 % (4-13); Mean Corpuscular HGB 30.7 pg (26.0-34.0); Mean Corpuscular HGB Conc 32.8 g/dL (31.5-36.5); Mean Corpuscular Volume 94 fL (80-100); Mean Platelet Volume 10.5 fL (9.1-12.4); NEUTROPHILS ABSOLUTE AUTO 10.84 K/mm3 (1.96-9.15); NEUTROPHILS PERCENT AUTO 73 % (41-73); Platelet Count 259 K/mm3 (150-400); RDW Coefficient Variation 13.9 % (11.7-14.2); RDW Standard Deviation 46.8 fL (35.1-46.3); Red Blood Cell Count 3.87 M/mm3 (4.30-5.90); White Blood Cell Count 14.76 K/mm3 (4.00-11.30)
[2024-06-28 05:54] LABS: Bun/Creatinine Ratio 40.1 (12.0-20.0); Creatinine, Blood 0.82 mg/dL (0.60-1.20); Potassium, Blood 3.4 mmol/L (3.5-5.5)
[2024-06-28 07:56] VITALS: BP 103/52
[2024-06-28] MEDS ORDERED: Furosemide 10 MG / ML 2ML Vial IV SCH (10:00)
[2024-06-28 15:37] VITALS: BP 113/56
[2024-06-28 15:38] VITALS: BP 113/56
--- NOTE | 2024-06-28 18:18 | NUR ---
MOBILITY - PT WAS AGREEABLE TO AMBULATING MORE THIS SHIFT. PT TOLERATED SITTING IN THE CHAIR, BEING UP OUT OF BED FOR ONE HOUR. HE ALSO TOLERATED EATING DINNER, SITTING ON THE EDGE OF THE BED AND DANGLING. HE REQUESTED TO USE THE BSC ONCE. PT C/O PAIN TO HIS BOTTOM - THERE IS REDNESS NOTED TO HIS BOTTOM. THIS RN PLACED A MEPILEX OVER THE COCCYX. PINK FOAM FOR THE MATTRESS WAS CUT AND ADDED TO THE CHAIR TO PROVIDE MORE CUSHION, AND ALSO TO THE BED TO PROTECT HIS COCCYX.
[2024-06-28 19:26] VITALS: BP 133/59
[2024-06-29 02:20] VITALS: BP 119/79
--- NOTE | 2024-06-29 05:18 | NUR ---
SHIFT SUMMARY 73 YR M ADMITTED ON 06/15/24. FULL CODE. NO ACUTE CHANGES THIS SHIFT. PT C/O GENERALIZED PAIN AND MEDICATED PER EMAR. PT HAS BEEN COMPLIANT W/ BIPAP THIS SHIFT ALTHOUGH HE MAKES IT CLEAR THAT HE DOES NOT LIKE TO WEAR IT. HE APPEARS TO HAVE RESTED COMFORTABLY THROUGHOUT THIS SHIFT. O2 SATS HAVE REMAINED WNL. AT ONE POINT DURING THE NIGHT, PT GOT CONFUSED AND TRIED TO GET OUT OF BED ON HIS OWN TO USE THE RESTROOM. HE GOT HIS CORDS AND LINES TANGLED UP, BUT HE WAS EASILY REDIRECTED BACK TO BED. HE HAS BEEN PLEASANT AND COOPERATIVE WITH CARE BUT HIS BED ALARM IS NOW ON FOR SAFETY.
[2024-06-29 05:28] LABS: BASOPHILS ABSOLUTE AUTO 0.02 K/mm3 (0.00-0.23); BASOPHILS PERCENT AUTO 0 % (0-2); EOSINOPHILS ABSOLUTE AUTO 0.07 K/mm3 (0.00-0.68); EOSINOPHILS PERCENT AUTO 1 % (0-6); Hemoglobin 10.8 g/dL (13.5-17.5); IMMATURE GRAN ABSOLUTE AUTO 0.12 K/mm3 (0.00-0.10); IMMATURE GRAN PERCENT AUTO 1 % (0-1); LYMPHOCYTES PERCENT AUTO 18 % (21-46); MONOCYTES ABSOLUTE AUTO 1.16 K/mm3 (0.16-1.47); MONOCYTES PERCENT AUTO 10 % (4-13); Mean Corpuscular HGB 30.7 pg (26.0-34.0); Mean Corpuscular HGB Conc 32.7 g/dL (31.5-36.5); Mean Corpuscular Volume 94 fL (80-100); Mean Platelet Volume 10.5 fL (9.1-12.4); NEUTROPHILS ABSOLUTE AUTO 8.56 K/mm3 (1.96-9.15); NEUTROPHILS PERCENT AUTO 71 % (41-73); Platelet Count 220 K/mm3 (150-400); RDW Coefficient Variation 13.8 % (11.7-14.2); RDW Standard Deviation 46.3 fL (35.1-46.3); Red Blood Cell Count 3.52 M/mm3 (4.30-5.90); White Blood Cell Count 12.13 K/mm3 (4.00-11.30)
[2024-06-29 06:21] LABS: Albumin, Blood 2.6 g/dL (3.4-5.0); Albumin/Globulin Ratio 0.9 (0.8-1.8); Bilirubin, Total 0.4 mg/dL (0.1-1.0); Bun/Creatinine Ratio 47.5 (12.0-20.0); Calcium, Blood 8.6 mg/dL (8.5-10.1); Creatinine, Blood 0.7 mg/dL (0.60-1.20); Globulin, Blood 2.8 g/dL (2.2-4.0); Magnesium, Blood 2.2 mg/dL (1.6-2.4); Potassium, Blood 3.5 mmol/L (3.5-5.5); Total Protein, Blood 5.4 g/dL (6.4-8.2)
[2024-06-29 07:23] VITALS: BP 145/60
--- NOTE | 2024-06-29 10:56 | NUR ---
ROUNDING AT PT BEDISIDE WITH DR. KENDALL. PT IS SHOWING SIGNS OF INCREASED CONFUSION, ISN'T ABLE TO STATE WHERE HE IS. HE IS MILDLY AGGITATED WHILE WATCHING TELEVISION NEWS. DR. KENDALL WITH ORDERS FOR A STAT VBG. PT IS ON HEATED HI TELLY OXYGEN, 45lpm with 44% fiO2. THE CASTILLO CATHETER WAS REMOVED DUE TO LEAKING AROUND THE INSERTION SITE. REPORTS PAIN 7/10, "ALL OVER." HE IS MAINTAINING SATS > 97%.
[2024-06-29 11:30] LABS: Base Excess Venous 13.2 mmol/L; Bicarbonate Venous 33.5 mmol/L (24.0-30.0); PCO2 Venous 70.7 mmHg (38-42); pH Blood Venous 7.35 (7.34-7.37)
--- NOTE | 2024-06-29 15:58 | NUR ---
MET WITH PATIENT TO DISCUSS SYMPTOM MANAGMENT AND PROGRESSION OF DISEASE. HE REPORTED THAT HIS PAIN MEDICATION WORKS WELL BUT DOES NOT LAST THE FULL FOUR HOURS. HE REPORTED THAT HE HAS BEEN IN AND OUT OF THE HOSPITAL SINCE JANUARY. HE RECIEVED CPR 05/13. WE DISCUSSED CODE STATUS. HE EXPRESSED THAT HE WOULD LIKE TO REMAIN FULL CODE. HE IS STILL SORE AND IT IS DIFFICULT FOR HIM TO GET A DEEP BREATH WITH HIS BROKEN RIBS. HIS LIVES WITH HIS AND PRIOR TO GETTING SICK HE WAS INDEPENDENT. PC WILL CONTINUE TO FOLLOW
[2024-06-29 16:04] VITALS: BP 115/69
--- NOTE | 2024-06-29 18:13 | NUR ---
END OF SHIFT SUMMARY: A&Ox3-4; EXHIBITS IMPAIRED JUDGMENT AND POOR INSIGHT. NOTED TO HAVE SOME MILD CONFUSION AND AGITATION TODAY. MAINTAINING SPO2 >92% ON HEATED HIGH FLOW OXYGEN @ 40LPM & 40%. BiPap WHEN SLEEPING. DECREASED TO 4LPM/NC BY RT OF 1630 TODAY. CALLS APPROPRIATELY AND IS ABLE TO ADVOCATE NEEDS. LUNG SOUNDS CLEAR. PLANS TO CONTINUE WITH IV DIURETICS, STEROIDS AND ABx. MAINTAINING BED IN LOWEST POSITION, CALL LIGHT WITHIN REACH, ALL NEEDS MET. REPORT TO ONCOMING NURSE.
[2024-06-29 19:42] VITALS: BP 112/69
[2024-06-30 03:52] VITALS: BP 117/100
--- NOTE | 2024-06-30 05:44 | NUR ---
ROAD CUTTER SUMMARY PT ALERT AND ORIENTED T/O THE SHIFT. ABLE TO MAKE NEEDS KNOWN. PT ABLE TO STATE WHERE HE IS AT AND GIVE DETAILS OF RECENT MED HX. PT COOPERATIVE WITH CARE. RT AT BEDSIDE TO ASSIST WITH BIPAP WHEN PT SLEEPING. PT ONCONT BIOX; SATS MAINTAINED T/O THE SHIFT ABOVE 90%. PT HAVING LITTLE URINARY OUTPUT. POST VOID SCAN 208MS. WCTM OUTPUT. CASTILLO REMOVED YESTERDAY. PT HAS BEEN VOIDING BUT SMALL AMOUNTS. HX OF RETENTION. CALL LIGHT ACCESSIBLE.
[2024-06-30 06:14] LABS: BASOPHILS ABSOLUTE AUTO 0.02 K/mm3 (0.00-0.23); BASOPHILS PERCENT AUTO 0 % (0-2); EOSINOPHILS ABSOLUTE AUTO 0.09 K/mm3 (0.00-0.68); EOSINOPHILS PERCENT AUTO 1 % (0-6); Hematocrit 33.7 % (37.0-53.0); Hemoglobin 10.9 g/dL (13.5-17.5); IMMATURE GRAN ABSOLUTE AUTO 0.09 K/mm3 (0.00-0.10); IMMATURE GRAN PERCENT AUTO 1 % (0-1); LYMPHOCYTES ABSOLUTE AUTO 1.81 K/mm3 (0.84-5.20); LYMPHOCYTES PERCENT AUTO 17 % (21-46); MONOCYTES ABSOLUTE AUTO 0.99 K/mm3 (0.16-1.47); MONOCYTES PERCENT AUTO 9 % (4-13); Mean Corpuscular HGB 31.1 pg (26.0-34.0); Mean Corpuscular HGB Conc 32.3 g/dL (31.5-36.5); Mean Corpuscular Volume 96 fL (80-100); Mean Platelet Volume 10.3 fL (9.1-12.4); NEUTROPHILS ABSOLUTE AUTO 7.57 K/mm3 (1.96-9.15); NEUTROPHILS PERCENT AUTO 72 % (41-73); Platelet Count 227 K/mm3 (150-400); RDW Coefficient Variation 13.9 % (11.7-14.2); RDW Standard Deviation 48.3 fL (35.1-46.3); White Blood Cell Count 10.57 K/mm3 (4.00-11.30)
[2024-06-30 06:38] LABS: Bun/Creatinine Ratio 36.1 (12.0-20.0); Calcium, Blood 8.6 mg/dL (8.5-10.1); Creatinine, Blood 0.75 mg/dL (0.60-1.20); Magnesium, Blood 2.1 mg/dL (1.6-2.4); Phosphorus, Blood 2.1 mg/dL (2.5-4.9); Potassium, Blood 3.5 mmol/L (3.5-5.5)
[2024-06-30 07:17] VITALS: BP 130/61
[2024-06-30] MEDS ORDERED: OxyCODONE 10/Acetamin 325 TABLET PO PRN (07:30)
[2024-06-30 14:34] VITALS: BP 109/81
--- NOTE | 2024-06-30 15:41 | NUR ---
DISCUSSED CASE WITH BEDSIDE RN, HE WAS WORKING WITH PT AND GETTING UP TO THE CHAIR. WAS AT BEDSIDE THIS SHIFT. RELAYED MY CONVERSATION WITH BEDSIDE RN AND CARE COORDINATION.
--- NOTE | 2024-06-30 18:34 | NUR ---
SUMMARY- PT A/O X4. UP TO CHAIR 1 GAIT, PIVOT TX. SAT UP IN CHAIR FOR LUNCH. SITS UP AT EDGE OF BED FREQ ON HIS OWN. KNOWS HIS LIMITS AND USES CALL LIGHT. LUNGS DIM BASES, OXYGEN 2L/NC HUMIDIFIED, RESP EVEN UNLABORED. PT HAS BEEN USING URINAL, CONTINENT OF URINE (JONATHAN DC'Brennen 06/29) PT TOLERATING FOOD AND KEEPING WITH FREE WATER RESTRICTION. PAIN MEDICATION INCREASED TODAY, CONTROLLING HIS RIBCAGE AND BODY PAIN. WILL REPORT TO NOC RN
[2024-06-30 19:38] VITALS: BP 138/104
[2024-07-01 03:31] VITALS: BP 131/61
--- NOTE | 2024-07-01 05:56 | NUR ---
SHIFT SUMMARY: Pt admitted for acute respiratory failure with hypoxia and is a full code. Is alert and able to make needs known. ADLs have been mostly 1p. Pain has been managed with PRN pain medication. On 2lpn via NC to maintain spo2 greater than 88%. Wore bipap while asleep.
[2024-07-01 06:37] LABS: BASOPHILS ABSOLUTE AUTO 0.04 K/mm3 (0.00-0.23); BASOPHILS PERCENT AUTO 0 % (0-2); EOSINOPHILS ABSOLUTE AUTO 0.08 K/mm3 (0.00-0.68); EOSINOPHILS PERCENT AUTO 1 % (0-6); Hematocrit 33.6 % (37.0-53.0); Hemoglobin 10.8 g/dL (13.5-17.5); IMMATURE GRAN ABSOLUTE AUTO 0.08 K/mm3 (0.00-0.10); IMMATURE GRAN PERCENT AUTO 1 % (0-1); LYMPHOCYTES ABSOLUTE AUTO 2.43 K/mm3 (0.84-5.20); LYMPHOCYTES PERCENT AUTO 19 % (21-46); MONOCYTES ABSOLUTE AUTO 0.86 K/mm3 (0.16-1.47); MONOCYTES PERCENT AUTO 7 % (4-13); Mean Corpuscular HGB 30.7 pg (26.0-34.0); Mean Corpuscular HGB Conc 32.1 g/dL (31.5-36.5); Mean Corpuscular Volume 96 fL (80-100); Mean Platelet Volume 10.5 fL (9.1-12.4); NEUTROPHILS ABSOLUTE AUTO 9.48 K/mm3 (1.96-9.15); NEUTROPHILS PERCENT AUTO 73 % (41-73); Platelet Count 226 K/mm3 (150-400); RDW Coefficient Variation 14.2 % (11.7-14.2); RDW Standard Deviation 48.2 fL (35.1-46.3); Red Blood Cell Count 3.52 M/mm3 (4.30-5.90); White Blood Cell Count 12.97 K/mm3 (4.00-11.30)
[2024-07-01 07:00] LABS: Calcium, Blood 8.9 mg/dL (8.5-10.1); Creatinine, Blood 0.61 mg/dL (0.60-1.20); Magnesium, Blood 2.1 mg/dL (1.6-2.4); Phosphorus, Blood 2.2 mg/dL (2.5-4.9); Potassium, Blood 3.3 mmol/L (3.5-5.5)
[2024-07-01 07:08] VITALS: BP 137/74
[2024-07-01] MEDS ORDERED: Potassium Chloride 20 MEQ TabCR PO ONE (08:00)
[2024-07-01 11:26] LABS: SARS-Cov-2 (COVID-19) PCR, MMC NEGATIVE (NEGATIVE)
[2024-07-01] MEDS ORDERED: AMOX875 PO (12:36)
[2024-07-01] MEDS ORDERED: ENOX40I SC (12:38)
[2024-07-01] MEDS ORDERED: Docusate S50 MG/5 ML PO (12:38)
[2024-07-01] MEDS ORDERED: IPRAT-ALBUT 0.5-3 ML INH (12:39)
[2024-07-01] MEDS ORDERED: PANT40 PO (12:40)
[2024-07-01] MEDS ORDERED: POTCHL20ER PO (12:41)
[2024-07-01] MEDS ORDERED: PRED20 PO (12:43)
== END 2024-07-01 13:05 | DRG 871 ==
LOC: ER 02:15 → PCU 03:56 → MEDS 03:56 → ICUE 03:56 → PCU 05:16 → MEDS 06-17 17:07 → ICUE 06-19 05:33 → MEDS 06-23 14:01
PROVIDERS: Emergency Medicine; Hospitalist; Internal Medicine; Internal Medicine Critical Care Medicine; Student in an Organized Health Care Education/Training Program; ADMIT Internal Medicine
PROC: 3E03329 Introduction of Other Anti-infective into Peripheral Vein, Percutaneous Approach (ICD-10-PCS; principal; 2024-06-15)
PROC: 3E033XZ Introduction of Vasopressor into Peripheral Vein, Percutaneous Approach (ICD-10-PCS; 2024-06-15)
PROC: 0DH67UZ Insertion of Feeding Device into Stomach, Via Natural or Artificial Opening (ICD-10-PCS; 2024-06-15)
PROC: 5A09357 Assistance with Respiratory Ventilation, Less than 24 Consecutive Hours, Continuous Positive Airway Pressure (ICD-10-PCS; 2024-06-18)
PROC: 0T9B70Z Drainage of Bladder with Drainage Device, Via Natural or Artificial Opening (ICD-10-PCS; 2024-06-19)
PROC: 4A033R1 Measurement of Arterial Saturation, Peripheral, Percutaneous Approach (ICD-10-PCS; 2024-06-19)
PROC: 0BH17EZ Insertion of Endotracheal Airway into Trachea, Via Natural or Artificial Opening (ICD-10-PCS; 2024-06-19)
PROC: 5A1945Z Respiratory Ventilation, 24-96 Consecutive Hours (ICD-10-PCS; 2024-06-19)
DX: A41.9 Sepsis, unspecified organism (principal); I50.33 Acute on chronic diastolic (congestive) heart failure; J18.9 Pneumonia, unspecified organism; R65.21 Severe sepsis with septic shock; J96.21 Acute and chronic respiratory failure with hypoxia; J96.22 Acute and chronic respiratory failure with hypercapnia; J44.0 Chronic obstructive pulmonary disease with (acute) lower respiratory infection; E87.20 Acidosis, unspecified; J44.1 Chronic obstructive pulmonary disease with (acute) exacerbation; I11.0 Hypertensive heart disease with heart failure; N40.0 Benign prostatic hyperplasia without lower urinary tract symptoms; D72.829 Elevated white blood cell count, unspecified; T38.0X5A Adverse effect of glucocorticoids and synthetic analogues, initial encounter; Z28.21 Immunization not carried out because of patient refusal; Z86.74 Personal history of sudden cardiac arrest; Z79.899 Other long term (current) drug therapy; Z79.82 Long term (current) use of aspirin; Z79.84 Long term (current) use of oral hypoglycemic drugs; E11.9 Type 2 diabetes mellitus without complications; Z79.4 Long term (current) use of insulin
CPT/HCPCS: 0241U; 31500; 36415; 36556; 36600; 51703; 71045; 71260; 80048; 80053; 80069; 80202; 81001; 81003; 82803; 82947; 83605; 83735; 83880; 84100; 84145; 84443; 84484; 85025; 85379; 87040; 87070; 87205; 92610; 94002; 94003; 94640; 94660; 94664; 94760; 94762; 96365-59; 96367; 96375-59; 97110; 97162; 97164; 97165; 97530; 97535; 99285-25; A9270; C1751; J0456; J0696; J1650; J1815; J1940; J2060; J2250; J2310; J2470; J2543; J2704; J2919; J3010; J3370; J7030; J7040; J7050; J7060; J7512; Q9967; U0002

== ENCOUNTER 2024-08-26 10:48 | Inpatient (IN) | payer OTHER ==
[~2024-08-26] VITALS: Ht 177.8 cm; Wt 86.8 kg
[~2024-08-26 10:48] MED LIST changes: +AMOX875 PO; +ATOR10 PO; +Docusate S50 MG/5 ML PO; +ENOX40I SC; +IPRAT-ALBUT 0.5-3 ML INH; +PANT40 PO; +POTCHL20ER PO
[2024-08-26] MEDS ORDERED: Albuterol 2.5 MG/3 ML VIAL INH SCH (11:00)
[2024-08-26 11:14] LABS: BASOPHILS ABSOLUTE AUTO 0.14 K/mm3 (0.00-0.23); BASOPHILS PERCENT AUTO 1 % (0-2); EOSINOPHILS ABSOLUTE AUTO 0.34 K/mm3 (0.00-0.68); EOSINOPHILS PERCENT AUTO 2 % (0-6); Hematocrit 41.4 % (37.0-53.0); Hemoglobin 13.3 g/dL (13.5-17.5); IMMATURE GRAN ABSOLUTE AUTO 0.14 K/mm3 (0.00-0.10); IMMATURE GRAN PERCENT AUTO 1 % (0-1); LYMPHOCYTES ABSOLUTE AUTO 8.65 K/mm3 (0.84-5.20); LYMPHOCYTES PERCENT AUTO 40 % (21-46); MONOCYTES ABSOLUTE AUTO 1.71 K/mm3 (0.16-1.47); MONOCYTES PERCENT AUTO 8 % (4-13); Mean Corpuscular HGB 31.4 pg (26.0-34.0); Mean Corpuscular HGB Conc 32.1 g/dL (31.5-36.5); Mean Corpuscular Volume 98 fL (80-100); Mean Platelet Volume 10.4 fL (9.1-12.4); NEUTROPHILS ABSOLUTE AUTO 10.45 K/mm3 (1.96-9.15); NEUTROPHILS PERCENT AUTO 49 % (41-73); Platelet Count 412 K/mm3 (150-400); RDW Coefficient Variation 12.7 % (11.7-14.2); RDW Standard Deviation 45.7 fL (35.1-46.3); Red Blood Cell Count 4.24 M/mm3 (4.30-5.90); White Blood Cell Count 21.43 K/mm3 (4.00-11.30)
[2024-08-26] MEDS ORDERED: NS 500 ML IV SCH (11:20)
[2024-08-26 11:24] LABS: Base Excess Venous 4.3 mmol/L; Bicarbonate Venous 25.6 mmol/L (24.0-30.0); PCO2 Venous 94.7 mmHg (38-42)
[2024-08-26 11:25] LABS: pH Blood Venous 7.15 (7.34-7.37)
[2024-08-26 11:47] LABS: Albumin, Blood 3.8 g/dL (3.4-5.0); Bilirubin, Total 0.2 mg/dL (0.1-1.0); Bun/Creatinine Ratio 37.3 (12.0-20.0); Calcium, Blood 9.7 mg/dL (8.5-10.1); Creatinine, Blood 0.8 mg/dL (0.60-1.20); Globulin, Blood 3.7 g/dL (2.2-4.0); Potassium, Blood 3.8 mmol/L (3.5-5.5); Total Protein, Blood 7.5 g/dL (6.4-8.2)
[2024-08-26] MEDS ORDERED: HYDR1TAB94 PO (12:20)
[2024-08-26] MEDS ORDERED: GABA100 PO (12:46)
[2024-08-26] MEDS ORDERED: SERT25 PO (12:48)
[2024-08-26 12:50] LABS: Influenza A, PCR NEGATIVE (NEGATIVE); Influenza B, PCR NEGATIVE (NEGATIVE); Resp Syncytial Virus, PCR NEGATIVE (NEGATIVE); SARS-Cov-2 (COVID-19) PCR, MMC NEGATIVE (NEGATIVE)
[2024-08-26] MEDS ORDERED: Ipratropium/Albuterol SulF 2.5-0.5MG/3 ML Amp INH SCH (13:05)
[2024-08-26] MEDS ORDERED: FLU VACC TS2024-25(6MOS UP)/PF 45 MCG/0.5 ML SYRINGE IM PRN (13:05)
[2024-08-26] MEDS ORDERED: Magnesium Hydroxide Conc 10 ML UDC PO PRN (13:05)
[2024-08-26] MEDS ORDERED: Bisacodyl 10 MG Supp PR PRN (13:10)
[2024-08-26] MEDS ORDERED: Ondansetron 4 MG TAB PO PRN (13:10)
[2024-08-26] MEDS ORDERED: TraZODone HCl 50 MG Tab PO PRN (13:10)
[2024-08-26] MEDS ORDERED: Azithromycin 500 MG in NS 250 ML IV SCH (13:12)
[2024-08-26] MEDS ORDERED: Mometasone/Formoterol MDI 200/5 mcg 13 GM INH SCH (13:15)
[2024-08-26] MEDS ORDERED: OxyCODONE 10/Acetamin 325 TABLET PO PRN (13:30)
[2024-08-26] MEDS ORDERED: MethylPREDNISolone Sod Succ 125 MG Vial IV SCH (16:00)
[2024-08-26] MEDS ORDERED: Famotidine 20 MG Tab PO SCH (16:30)
[2024-08-26] MEDS ORDERED: Insulin Human Lispro 100 Units/ML 3ML Syringe SC SCH (16:30)
[2024-08-26 17:34] VITALS: BP 126/84
[2024-08-26 18:06] VITALS: BP 142/55
--- NOTE | 2024-08-26 18:37 | NUR ---
THIS RN ASSUMED CARE OF PT AT 1700. PT IS ALERT AND ORIENTED X4, USES A WALKER AT HOME, DUE TO PT RESPIRTORY STATUS PT IS BEDBOUND. THIS RN CALLED DR. KENDALL AND PROVIDER SAID TO ORDER AM VBG AND OKAY FOR PT TO HAVE CONSISTENT CARB DIET. PT HEART RATE IN THE 90-100s. BLOOD PRESSURE STABLE, PT DENIES CHEST PAIN. PT ON 3L NC AND SATTING >95%, PT EDUCATED ON THE CPAP AND WEARING IT THROUGHOUT THE NIGHT AND PT COOPERATIVE AND REPEATED VERBALLY BACK THE IMPORTANCE. PT IS ABLE TO VOID APPROPRIATELY. NO OTHER INTERVENTIONS AT THIS TIME. PLAN OF CARE CONTINUED.
[2024-08-26 20:00] VITALS: BP 123/53
--- NOTE | 2024-08-26 21:01 | NUR ---
ASSUMED CARE AT 1900 PATIENT IS ALERT AND ORIENTED X4. SP02 98% ON 3L VIA NC, DENIES SOB, AGREES TO WEAR CPAP WHILE SLEEPING. HR SR 90s. BP STABLE, DENIES CP/PRESSURE. ABLE TO USE URINAL AND REPOSITION SELF IN BED. CALL LIGHT IN REACH
[2024-08-27] VITALS: BP 128/54
[2024-08-27 03:42] LABS: Base Excess Venous 5.9 mmol/L; Bicarbonate Venous 29.2 mmol/L (24.0-30.0); PCO2 Venous 40.7 mmHg (38-42); pH Blood Venous 7.47 (7.34-7.37)
[2024-08-27 04:00] VITALS: BP 140/63
[2024-08-27 04:00] LABS: BASOPHILS ABSOLUTE AUTO 0.01 K/mm3 (0.00-0.23); BASOPHILS PERCENT AUTO 0 % (0-2); EOSINOPHILS PERCENT AUTO 0 % (0-6); Hematocrit 35.4 % (37.0-53.0); Hemoglobin 11.4 g/dL (13.5-17.5); IMMATURE GRAN ABSOLUTE AUTO 0.07 K/mm3 (0.00-0.10); IMMATURE GRAN PERCENT AUTO 1 % (0-1); LYMPHOCYTES PERCENT AUTO 8 % (21-46); MONOCYTES ABSOLUTE AUTO 0.17 K/mm3 (0.16-1.47); MONOCYTES PERCENT AUTO 2 % (4-13); Mean Corpuscular HGB 30.6 pg (26.0-34.0); Mean Corpuscular HGB Conc 32.2 g/dL (31.5-36.5); Mean Corpuscular Volume 95 fL (80-100); Mean Platelet Volume 10.7 fL (9.1-12.4); NEUTROPHILS ABSOLUTE AUTO 10.21 K/mm3 (1.96-9.15); NEUTROPHILS PERCENT AUTO 90 % (41-73); Platelet Count 269 K/mm3 (150-400); RDW Coefficient Variation 12.7 % (11.7-14.2); Red Blood Cell Count 3.72 M/mm3 (4.30-5.90); White Blood Cell Count 11.36 K/mm3 (4.00-11.30)
[2024-08-27 04:24] LABS: Albumin, Blood 3.3 g/dL (3.4-5.0); Bilirubin, Total 0.3 mg/dL (0.1-1.0); Bun/Creatinine Ratio 46.9 (12.0-20.0); Calcium, Blood 9.3 mg/dL (8.5-10.1); Creatinine, Blood 0.75 mg/dL (0.60-1.20); Globulin, Blood 3.3 g/dL (2.2-4.0); Magnesium, Blood 2.5 mg/dL (1.6-2.4); Potassium, Blood 4.1 mmol/L (3.5-5.5); Total Protein, Blood 6.6 g/dL (6.4-8.2)
--- NOTE | 2024-08-27 06:43 | NUR ---
SHIFT SUMMARY PATIENT IS ALERT AND ORIENTED X4. WORE BIPAP FROM APPROX [id number], REFUSED TO WEAR IT ANY LONGER, PLACED BACK ON 3L NC. HR SR 80s, BP STABLE, DENIES CP/PRESSURE. USES URINAL, UP TO BEDSIDE COMMODE AND LARGE BM THIS AM. CALL LIGHT IN REACH
[2024-08-27 07:00] VITALS: BP 140/63
[2024-08-27] MEDS ORDERED: Tamsulosin HCl 0.4 MG Cap PO SCH (09:00)
[2024-08-27] MEDS ORDERED: Furosemide 20 MG Tab PO SCH (09:00)
[2024-08-27] MEDS ORDERED: Enoxaparin 40 MG/0.4 ML SYR SC SCH (09:00)
[2024-08-27] MEDS ORDERED: Loratadine 10 MG Tab PO SCH (09:00)
--- NOTE | 2024-08-27 10:47 | NUR ---
ASSUMED CARE OF PATIENT AT APPROXIMATELY 0700. REPORT RECEIVED FROM BRUNA WHITEHEAD. PT AWAKE IN BED, INTERACTING WITH STAFF APPROPRIATELY DURING BEDSIDE REPORT. CONTINUOUS CARDIAC MONITORING IN PLACE SHOWS SR, BP STABLE WITH MAP > 65. ON 2LPM O2 VIA NC WITH O2 SATURATION > 92%. SEE SHIFT ASSESSMENT FOR FULL DETAILS.
[2024-08-27 12:25] VITALS: BP 127/58
--- NOTE | 2024-08-27 15:26 | NUR ---
PT TAKEN TO [facility] FLOOR ROOM 363, ESCORTED BY PCT.
[2024-08-27 15:37] VITALS: BP 144/62
--- NOTE | 2024-08-27 15:48 | NUR ---
SHIFT [facility] PT TRANSFERED FROM ICU 3 TO ROOM 363. PT NOTED TO BE A&OX4 AND SBA WITH AMBULATION. PT NOTED TO BE ON 4L/NC PT STATED HIS BASELINE IS 2-3L AND THAT HE WEARS CPAP AT NOC. PT NOTED TO HAVE BRUISIES SCATTERED T/O BOTH ARMS. PT IS PLEASENT AND COOPERATIVE WITH CARE. TELE IS ON AND INTACT NOTED TO BE SR. PT ORINTATED TO ROOM WITH NO QUESTIONS OR CONCERNS NOTED AT THIS TIME. PT NOTIFIED OF TRANSFER PER PT.
[2024-08-27 19:26] VITALS: BP 132/61
[2024-08-27] MEDS ORDERED: Lactobacil 2-S.Thermo-Bifido 1 1 Cap PO SCH (21:00)
[2024-08-28] VITALS (7 sets, daily range): BP systolic 118–151; BP diastolic 60–100
[2024-08-28] MEDS ORDERED: SENN187 PO (00:08)
[2024-08-28] MEDS ORDERED: BISA10S PR (00:10)
[2024-08-28 04:37] LABS: Hematocrit 34.2 % (37.0-53.0); Hemoglobin 11.1 g/dL (13.5-17.5); Mean Corpuscular HGB Conc 32.5 g/dL (31.5-36.5); Mean Corpuscular Volume 96 fL (80-100); Mean Platelet Volume 10.4 fL (9.1-12.4); Platelet Count 255 K/mm3 (150-400); RDW Coefficient Variation 12.4 % (11.7-14.2); RDW Standard Deviation 44.1 fL (35.1-46.3); Red Blood Cell Count 3.58 M/mm3 (4.30-5.90); White Blood Cell Count 12.22 K/mm3 (4.00-11.30)
[2024-08-28 04:53] LABS: Bun/Creatinine Ratio 38.6 (12.0-20.0); Calcium, Blood 9.1 mg/dL (8.5-10.1); Creatinine, Blood 0.78 mg/dL (0.60-1.20); Magnesium, Blood 2.5 mg/dL (1.6-2.4); Phosphorus, Blood 3.1 mg/dL (2.5-4.9); Potassium, Blood 4.7 mmol/L (3.5-5.5)
--- NOTE | 2024-08-28 05:32 | NUR ---
SHIFT SUMMARY NOC PT A/O X 4. PLEASANT AND COOPERATIVE WITH CARE. VSS. HS CBG 224 WITH CNI. PT REQUIRING 4L/NC TO MAINTAIN SPO2 >94%, USING BIPAP FOR SLEEP. PT HAD C/O 8/10 CHRONIC BLE PAIN AND RECEIVED ONE DOSE PERCOCET. PT ON TELE SINUS RHYTHM/1DHB IN 70'S. PT CURRENTLY RESTING WITH BED IN LOWEST POSITION, AND CALL LIGHT WITHIN REACH.
[2024-08-28] MEDS ORDERED: AmLODIPine Besylate 5 MG Tab PO SCH (09:00)
[2024-08-28] MEDS ORDERED: Atorvastatin 10 MG Tab PO SCH (09:00)
[2024-08-28] MEDS ORDERED: Azithromycin 250 MG Tab PO SCH (12:00)
--- NOTE | 2024-08-28 18:21 | NUR ---
SHIFT SUMMARY PT CONT LEVEL OF CARE. PT REMAINS A&OX4 AND ASSIST X1. PT HAS REFUSED TO GET OUT OF BED THIS SHIFT. PT CALLS APPROPRIATE WITH CARE. PT SWITCHED FROM IV ABT TO PO. AND ORDER RECIEVED FOR NO IV ACCESS. PT VOICED C/O NEAR END OF SHIFT AND WAS MEDICATED PER EMAR WITH EFFECTIVENESS.
--- NOTE | 2024-08-28 20:34 | NUR ---
PT HAS NO IV ACCESS ORDER PUT IN DURING DAY SHIFT. PER POLICY PT MUST HAVE IV ACCESS IF ON CARDIAC MONITORING. PT REFUSING IV START, HOSPITALIST NOTIFIED OF PT REFUSAL AND RECENT HX OF CARDIAC ARREST 05/13. PER HOSPITALIST CARDIAC MONITORING STILL IN PLACE W/O IV ACCESS, BUT PT AGREES THAT IF ANY EVENTS OCCUR ON TELE THAT IV ACCESS CAN BE RESTARTED.
[2024-08-29 00:06] VITALS: BP 130/67
[2024-08-29 04:26] VITALS: BP 146/62
--- NOTE | 2024-08-29 05:08 | NUR ---
SHIFT SUMMARY NOC PT A/O X 4. PLEASANT AND COOPERATIVE WITH CARE. VSS. DURING DAY SHIFT ROUNDING ORDERED NO IV ACCESS ORDER DUE TO PT BEING TRANSITIONED TO PO ABX AND STEROIDS, BUT PT STILL HAD TELEMETRY ORDERED AND PER POLICY WOULD REQUIRE IV ACCESS. PT TOLD OF REASON WHY TELE WAS ORDERED DUE TO CARDIAC ARREST IN 05/13, BUT PT DECLINED FURTHER IV ACCESS. HOSPITALIST NOTIFIED OF SITUATION AND GIVEN BACKGROUND ON PMHX, AND GAVE INSTRUCTION TO KEEP TELE IN PLACE LONG PT AGREES TO IV ACCESS IF ANY ADVERSE EVENTS HAPPEN ON TELE, AND PT AGREED. SPECIAL INSTRUCTIONS IN TELE PUT IT. ON TELE PT HAS BEEN SINUS RHYTHM N 80'S. ON 2L/NC WHICH IS BACK TO BASELINE, AND USING BIPAP FOR SLEEP. PT HAD C/O OF DIET BEING ADA, AND EDUCATED ON IMPORTANCE OF ADHERRING TO IT DUE TO BEING DM2 WITH INFECTION AND TAKING STEROIDS WHICH CAN LEAD TO HYPERGLYCEMIA, AND AGREED TO CONTINUE WITH DIET ORDERED. PT EXPECTED TO GO BACK TO [facility] 08/30/24. PT CURRENTLY RESTING WITH BED IN LOWEST POSITION, AND CALL LIGHT WITHIN REACH.
[2024-08-29 06:01] LABS: Hematocrit 34.2 % (37.0-53.0); Hemoglobin 11.3 g/dL (13.5-17.5)
[2024-08-29 06:21] LABS: Bun/Creatinine Ratio 36.1 (12.0-20.0); Calcium, Blood 9.3 mg/dL (8.5-10.1); Creatinine, Blood 0.83 mg/dL (0.60-1.20); Magnesium, Blood 2.4 mg/dL (1.6-2.4); Phosphorus, Blood 2.9 mg/dL (2.5-4.9); Potassium, Blood 3.9 mmol/L (3.5-5.5)
[2024-08-29 07:36] VITALS: BP 111/96
[2024-08-29] MEDS ORDERED: PredniSONE 20 MG Tab PO SCH (09:00)
[2024-08-29] MEDS ORDERED: FLUTICASONE-SA1 EAC2 INH (10:58)
[2024-08-29] MEDS ORDERED: SENN187 PO (11:03)
[2024-08-29] MEDS ORDERED: Flomax0.4 MG PO (11:04)
--- NOTE | 2024-08-29 14:59 | NUR ---
DISCHARGE SUMMARY PT DC THIS SHIFT BACK TO [facility]. THIS NURSE CALLED AND GAVE REPORT TO NURSE AT [facility]. PT WAS PICKED UP BY [facility] AND OXYGEN WAS GIVEN FOR PT FOR TRANSPORT. PT WAS TAKEN OUT TO TRANSPORT [facility] WHEELCHAIR BY THIS NURSE. HARD COPY OF WAS PLACED IN DC PACKET AND GIVEN TO TRAN[facility]ORTATION SERVICE AND NURSE AT [facility] WAS NOTIFIED THAT SCRIPT WAS IN PACKET.
== END 2024-08-29 14:10 | DRG 189 ==
LOC: ER 10:48 → ICUE 13:00 → ERHOLD 13:00 → ICUE 17:19 → MEDS 08-27 15:36
PROVIDERS: Emergency Medicine; ADMIT Hospitalist
PROC: 5A09357 Assistance with Respiratory Ventilation, Less than 24 Consecutive Hours, Continuous Positive Airway Pressure (ICD-10-PCS; principal; 2024-08-26)
DX: J96.21 Acute and chronic respiratory failure with hypoxia (principal); J44.1 Chronic obstructive pulmonary disease with (acute) exacerbation; J96.22 Acute and chronic respiratory failure with hypercapnia; Z99.81 Dependence on supplemental oxygen; I10 Essential (primary) hypertension; K21.9 Gastro-esophageal reflux disease without esophagitis; E78.5 Hyperlipidemia, unspecified; E11.9 Type 2 diabetes mellitus without complications; G89.29 Other chronic pain; N40.0 Benign prostatic hyperplasia without lower urinary tract symptoms; Z79.82 Long term (current) use of aspirin; Z79.899 Other long term (current) drug therapy; Z79.84 Long term (current) use of oral hypoglycemic drugs
CPT/HCPCS: 0241U; 36415; 71045; 80048; 80053; 82803; 82947; 83605; 83735; 83880; 84100; 84145; 84484; 85014; 85018; 85025; 85027; 93005; 93010; 94640; 94644; 94660; 94664; 94760; 94762; 97110; 97116; 97162; 97165; 97530; 99285-25; A9270; J0456; J1650; J2919; J7030; J7050; J7512

== ENCOUNTER 2024-11-17 11:59 | Inpatient (IN) | payer OTHER ==
[~2024-11-17] VITALS: Ht 175.3 cm; Wt 85.6 kg
[~2024-11-17 11:59] MED LIST changes: +BISA10S PR; +FLUTICASONE-SA1 EAC2 INH; +Flomax0.4 MG PO; +GABA100 PO; +HYDR1TAB94 PO; +SENN187 PO; +SERT25 PO
[2024-11-17 12:42] LABS: BASOPHILS ABSOLUTE AUTO 0.02 K/mm3 (0.00-0.23); BASOPHILS PERCENT AUTO 0 % (0-2); EOSINOPHILS ABSOLUTE AUTO 0.01 K/mm3 (0.00-0.68); EOSINOPHILS PERCENT AUTO 0 % (0-6); Hematocrit 43.7 % (37.0-53.0); Hemoglobin 13.4 g/dL (13.5-17.5); IMMATURE GRAN ABSOLUTE AUTO 0.07 K/mm3 (0.00-0.10); IMMATURE GRAN PERCENT AUTO 1 % (0-1); LYMPHOCYTES ABSOLUTE AUTO 1.02 K/mm3 (0.84-5.20); LYMPHOCYTES PERCENT AUTO 7 % (21-46); MONOCYTES ABSOLUTE AUTO 0.65 K/mm3 (0.16-1.47); MONOCYTES PERCENT AUTO 5 % (4-13); Mean Corpuscular HGB Conc 30.7 g/dL (31.5-36.5); Mean Corpuscular Volume 91 fL (80-100); NEUTROPHILS ABSOLUTE AUTO 12.56 K/mm3 (1.96-9.15); NEUTROPHILS PERCENT AUTO 88 % (41-73); Platelet Count 311 K/mm3 (150-400); RDW Coefficient Variation 12.7 % (11.7-14.2); RDW Standard Deviation 42.5 fL (35.1-46.3); Red Blood Cell Count 4.79 M/mm3 (4.30-5.90); White Blood Cell Count 14.33 K/mm3 (4.00-11.30)
[2024-11-17 12:58] LABS: Base Excess Venous 17.5 mmol/L; PCO2 Venous 90.4 mmHg (38-42)
[2024-11-17] MEDS ORDERED: CefTRIAXone Sodium 1,000 MG in NS 100 ML IV ONE (13:15)
[2024-11-17] MEDS ORDERED: NS 500 ML IV SCH (13:15)
[2024-11-17 13:20] LABS: Albumin/Globulin Ratio 0.8 (0.8-1.8); Bilirubin, Total 0.3 mg/dL (0.1-1.0); Bun/Creatinine Ratio 47.2 (12.0-20.0); Calcium, Blood 9.3 mg/dL (8.5-10.1); Creatinine, Blood 0.64 mg/dL (0.60-1.20); Globulin, Blood 3.8 g/dL (2.2-4.0); Total Protein, Blood 6.8 g/dL (6.4-8.2)
[2024-11-17] MEDS ORDERED: Albuterol 2.5 MG/3 ML VIAL INH PRN (16:00)
[2024-11-17] MEDS ORDERED: Ipratropium/Albuterol SulF 2.5-0.5MG/3 ML Amp INH SCH (16:05)
[2024-11-17] MEDS ORDERED: Budesonide 0.5 MG/2 ML RESP INH SCH (16:10)
[2024-11-17] MEDS ORDERED: Insulin Human Lispro 100 Units/ML 3ML Syringe SC SCH (16:30)
[2024-11-17] MEDS ORDERED: Azithromycin 500 MG in NS 250 ML IV SCH (17:00)
[2024-11-17] MEDS ORDERED: MethylPREDNISolone Sod Succ 40 MG VIAL IV SCH (17:00)
[2024-11-17 20:50] VITALS: BP 167/69
[2024-11-17 22:58] VITALS: BP 162/71
[2024-11-18] MEDS ORDERED: Labetalol HCL 5 MG/ML 4ML Injection (Single Dose) IV PRN (02:10)
[2024-11-18 03:05] VITALS: BP 157/56
[2024-11-18 04:34] LABS: PO2 Arterial 71.2 mmHg (80-100); pH Blood Arterial 7.37 (7.35-7.45)
[2024-11-18 04:35] LABS: PCO2 Arterial 74.1 mmHg (35-45)
[2024-11-18 04:43] LABS: Hemoglobin 12.7 g/dL (13.5-17.5); Mean Corpuscular HGB 27.8 pg (26.0-34.0); Mean Corpuscular HGB Conc 30.2 g/dL (31.5-36.5); Mean Corpuscular Volume 92 fL (80-100); Mean Platelet Volume 10.4 fL (9.1-12.4); Platelet Count 307 K/mm3 (150-400); RDW Coefficient Variation 12.7 % (11.7-14.2); RDW Standard Deviation 42.3 fL (35.1-46.3); Red Blood Cell Count 4.57 M/mm3 (4.30-5.90); White Blood Cell Count 9.07 K/mm3 (4.00-11.30)
--- NOTE | 2024-11-18 04:56 | NUR ---
SHIFT SUMMARY PT A&O X3-4, ABLE TO MAKE NEEDS KNOWN, COOPERATIVE WITH CARE AT THIS TIME, ALTHOUGH PT FREQUENTLY GETS FRUSTRATED AND WILL CURSE AT STAFF. VSS, AFEBRILE, SPO2 >92% ON 3-5L HFNC. HE IS REFUSING BIPAP AT THIS TIME. PT DENIES CP OR SOB. TELE SHOWS SR/ST 90S-100S. PT IS NPO, ALTHOUGH PT REPEATEDLY ASKS FOR A GLASS OF WATER. THIS RN HAS EDUCATED PT MULTIPLE TIMES ON NEED FOR NPO AND SPEECH THERAPY EVAL. PROVIDED SWABS FOR PT TO KEEP MOUTH MOIST IN THE MEANTIME. BED ALARM ON FOR SAFETY, BED IN LOWEST POSITION, CALL LIGHT IN REACH, BREATHING IS EVEN AND UNLABORED.
--- NOTE | 2024-11-18 05:04 | NUR ---
UPDATE PT WAS HEARD CALLING FOR HELP. THIS RN PRESENTED TO ROOM. PT IS VISIBLY UPSET AND CURSING. HE STATES THAT HE IS GOING TO GO HOME AND NO LONGER WANTS TO BE IN THE HOSPITAL. THIS RN EDUCATED PT ON IMPORTANCE OF STAYING IN THE HOSPITAL FOR TREATMENT. PT STATED THAT THIS IS "BULLSHIT" AND CALLED THIS RN A "MOTHERFUCKER". PT STILL CONTINUING TO REFUSE TO WEAR BIPAP. THIS RN LOWERED BED TO LOWEST POSITION, CALL LIGHT IN REACH, BED ALARM ON AND EXITED ROOM.
[2024-11-18 05:17] LABS: Creatinine, Blood 0.63 mg/dL (0.60-1.20)
[2024-11-18] MEDS ORDERED: Pantoprazole Sodium 40 MG Tab PO SCH (06:00)
[2024-11-18 07:46] VITALS: BP 127/63
[2024-11-18] MEDS ORDERED: Acetaminophen 325 MG TABLET PO PRN (08:25)
[2024-11-18] MEDS ORDERED: Sertraline HCl 50 MG Tab PO SCH (09:00)
[2024-11-18] MEDS ORDERED: Polyethylene Glycol 3350 17 gm PO SCH (09:00)
[2024-11-18] MEDS ORDERED: AmLODIPine Besylate 5 MG Tab PO SCH (09:00)
[2024-11-18] MEDS ORDERED: Gabapentin 100 MG Cap PO SCH (09:00)
[2024-11-18] MEDS ORDERED: CefTRIAXone Sodium 1,000 MG in NS 100 ML IV SCH (09:00)
[2024-11-18] MEDS ORDERED: Aspirin 81 MG Chew PO SCH (09:00)
[2024-11-18] MEDS ORDERED: Tamsulosin HCl 0.4 MG Cap PO SCH (09:00)
[2024-11-18] MEDS ORDERED: OxyCODONE 5 mg/Acetamin 325 mg TABLET PO PRN (09:00)
[2024-11-18] MEDS ORDERED: Enoxaparin 40 MG/0.4 ML SYR SC SCH (09:00)
[2024-11-18] MEDS ORDERED: Atorvastatin 10 MG Tab PO SCH (09:00)
[2024-11-18] MEDS ORDERED: Cholecalciferol 1000 Unit Tablet (=25MCG) PO SCH (09:00)
[2024-11-18 11:29] VITALS: BP 140/72
--- NOTE | 2024-11-18 12:59 | NUR ---
AM NOTE PT ALERT, ORIENTED X4; FORGETFUL AT TIMES. PT SPOUSE AT BEDSIDE THIS AM, REPORTS PATIENT IS HAVING HALLUCINATIONS. PT DENIES PAIN, CHEST PAIN/PRESSURE, SOB, NAUSEA, DIZZINESS AND NUMB/TINGLING. SPO2 >90% ON 2-3L O2 VIA NC. TELE SINUS 90-100'S, BP STABLE. ABD SOFT, NONTENDER +BT T/O. OTHER VSS. PATIENT WORE BIPAP FOR APPROX 1 HR THIS AM. CALL LIGHT WITHIN REACH
[2024-11-18 16:03] VITALS: BP 146/71
[2024-11-18] MEDS ORDERED: TRAM50 PO (16:19)
[2024-11-18] MEDS ORDERED: MASOPHEN325 M2 PO (16:20)
[2024-11-18] MEDS ORDERED: AZIT500 PO (16:24)
--- NOTE | 2024-11-18 16:45 | NUR ---
Shift Summary Pt on 2-3l o2 via nc t/o shift. No acute changes noted. Other vss. Report given to rn assuming care of patient.
[2024-11-18] MEDS ORDERED: MethylPREDNISolone Sod Succ 40 MG VIAL IV SCH (18:00)
[2024-11-18 20:40] VITALS: BP 152/68
--- NOTE | 2024-11-19 00:41 | NUR ---
UPDATE THIS RN WENT INTO PTS ROOM TO CHECK VITALS. PT TRYING TO GET OUT OF BED, PUSHED RN AND SAID "GET THE FUCK OUT OF MY WAY." PT NOT REDIRECTABLE. PT WEAK AND STUMBLING OTHER RN TO ROOM AND HELPED GET PT TO CHAIR. PT THEN PROCEEDED TO RIP OF TELE STICKERS AND STATED "
[2024-11-19 01:04] VITALS: BP 142/73
--- NOTE | 2024-11-19 01:40 | NUR ---
THIS RN WENT TO PTS ROOM TO CHECK VITALS. PT JUMPING OUT OF BED, RIPPED BIPAP OFF. ADVISED PT HE IS UNSTEADY ON HIS FEET AND HE WAS GOING TO FALL. PT THEN STATED "GET THE FUCK OUT OF MY WAY" AND THEN PUSHED THIS RN. PT BECAME WEAK AND SOB THEN AGREED TO SIT IN CHAIR. PT THEN PROCEEDED TO RIP OFF TELE STICKERS AND STICK THEM ON MY CLOTHES. ADVISED PT NOT TO DO THIS AND HE PROCEEDED TO STICK TELE PATCHES TO MY CLOTHES AND STATED "IM LEAVING MOTHER FUCKER" PT STATING HE IS GOING TO LEAVE TO A REAL HOSPITAL. PT ADVISED THIS IS A REAL HOSPITAL. ASKED PT IF HE KNEW WHERE HE WAS AND HE WAS UNABLE TO STATE WHERE HE WAS OR WHY. PT STATED "YOU ARE KEEPING ME AGIANST MY WILL" I ASKED PT HOW HE PLANNED ON LEAVING AND HE STATED "ILL WALK." PT UNSTEADY ON FEET UNABLE TO WALK LONG DISTANCES, ADIVSED PT HE COULD BARELY STAND AND THAT HE WOULD NOT BE SAFE FOR HIM TO WALK. PT THEN GOT UP FROM [facility] AND WANTED TO SIT IN RECLINER. PT AMBULATED TO RECLINER WITH THIS RN BY HIS SIDE. AFTER THIS RN AND EROSION CONTROL COORDINATOR DISCUSSING WITH PT AND EDUCATING HIM ON RISKS AND ORIETNING HIM TO WHERE HE WAS HE DECIDED TO GO BACK TO BED. PT THEN REFUSED TO BE PUT BACK ON TELE AND OR TO WEAR OXYGEN PROBE. RESIDENT CALLED AND NOTIFIED. NO NEW ORDERS AT THIS TIME. WILL MONITOR PT.
[2024-11-19 03:15] VITALS: BP 163/67
[2024-11-19 04:32] LABS: Bun/Creatinine Ratio 38.6 (12.0-20.0); Calcium, Blood 9.2 mg/dL (8.5-10.1); Creatinine, Blood 0.67 mg/dL (0.60-1.20)
--- NOTE | 2024-11-19 06:27 | NUR ---
SHIFT SUMMARY PT ALERT, ORIENTED TO SELF AND PLACE. HE IS CONFUSED T/O SHIFT. PT REFUSING CARE MOST OF THE NIGHT AND NOT COOPERATING. PT RIPPED TELE OFF DURING THE NIGHT AND REFUSING TO PUT IT BACK ON. REASSESED LATER AND PT AGREED TO LET ME PUT HIM BACK ON TELE. HR HAS BEEN IN THE 70'S, SR. HE DENIED CP/PRESSURE, NUMB/TINGLING, SBP STABLE. PT HAD BIPAP ON FOR APPROX AND HOUR AND HALF AND THEN RIPPED IT OFF AND HAS SINCE REFUSED. PT REFUSED NC, EDUCATED PT ON NEED FOR OXYGEN AND THAT THIS IS HIS BASELINE. PT AGREED TO WEAR OXYGEN. PT ON 2L VIA NC, HE IS ON 2L AT BASELINE. HE DOES GET SOB WITH ACTIVITY. PT USED URINAL AT BEDSIDE AT START OF SHIFT, HE HAS ONLY HAD 250 OUT, THERE DOES APPEAR TO BE A FEW UNMEASURED VOIDS NOTED IN I'S AND O'S. PT REFUSED BLADDER SCAN FOR THIS RN, PCT AND ANOTHER RN ON UNIT. OFFERED TO ASSIST WITH THE URINAL, PT STATED "GET AWAY FROM ME." CALL PLACED TO RESIDENT TO NOTIFY HIM. NO NEW ORDERS, TO ENCOURAGE ORAL FLUID INTAKE. TRIED TO PASS MORNING MEDICATIONS AND PT REFUSED, STATED "LEAVE ME ALONE, ILL TAKE IT LATER." SEE EMAR. PT RESTING IN BED AT THIS TIME. CALL LIGHT IN REACH. WILL MONITOR PT AND REPORT TO ONCOMING RN.
[2024-11-19 08:00] VITALS: BP 189/73
--- NOTE | 2024-11-19 10:11 | NUR ---
AM NOTE: PT A/O AND COOPERATIVE WITH CARE THIS MORNING. PT SITTING HIGH FOWLERS ON 3L O2 WITH SATS AT 91. PT ON TELE NSR 80s. LUNGS SOUND DIMINISHED BILATERALLY, ENCOURAGED COUGH AND DEEP BREATH. PT WAS INCONT THIS MORNING WITH URINE, CHANGED BEDDING AND PROVIDED ANDI CARE. PT GIVEN MEDICATIONS PER EMAR. PT WATCHING TV IN BED, CALL LIGHT WITHIN REACH.
[2024-11-19] MEDS ORDERED: ALBU2.5V5 INH (11:07)
[2024-11-19] MEDS ORDERED: MIRALAX17 GM PO (11:08)
[2024-11-19] MEDS ORDERED: Prednisone10 MG PO (11:09)
[2024-11-19 11:37] VITALS: BP 156/66
--- NOTE | 2024-11-19 11:53 | NUR ---
PT TRANSFER: PT LEFT WITH [facility] AT 1153 TO [facility], REPORT GIVEN VIA PHONE CALL TO RN TAKING ON PT. VSS. PT ON BASELINE OF 2L O2 NC. BELONGINGS PACKED WITH PT.
== END 2024-11-19 11:53 | DRG 189 ==
LOC: ER 11:59 → PCU 15:58 → ERHOLD 15:58 → PCU 20:41
PROVIDERS: Family Medicine; Student in an Organized Health Care Education/Training Program; ADMIT Internal Medicine
PROC: 5A09357 Assistance with Respiratory Ventilation, Less than 24 Consecutive Hours, Continuous Positive Airway Pressure (ICD-10-PCS; principal; 2024-11-18)
PROC: 4A033R1 Measurement of Arterial Saturation, Peripheral, Percutaneous Approach (ICD-10-PCS; 2024-11-18)
DX: J96.21 Acute and chronic respiratory failure with hypoxia (principal); G92.8 Other toxic encephalopathy; J44.1 Chronic obstructive pulmonary disease with (acute) exacerbation; R44.3 Hallucinations, unspecified; I10 Essential (primary) hypertension; K21.9 Gastro-esophageal reflux disease without esophagitis; E78.5 Hyperlipidemia, unspecified; G89.4 Chronic pain syndrome; D72.829 Elevated white blood cell count, unspecified; N40.0 Benign prostatic hyperplasia without lower urinary tract symptoms; E11.42 Type 2 diabetes mellitus with diabetic polyneuropathy; J96.22 Acute and chronic respiratory failure with hypercapnia; Z96.611 Presence of right artificial shoulder joint; F32.A Depression, unspecified; Z99.89 Dependence on other enabling machines and devices; Z79.899 Other long term (current) drug therapy; Z79.82 Long term (current) use of aspirin; Z79.891 Long term (current) use of opiate analgesic; Z79.52 Long term (current) use of systemic steroids; Z86.74 Personal history of sudden cardiac arrest; Z87.19 Personal history of other diseases of the digestive system
CPT/HCPCS: 36415; 36600; 70450; 71045; 71260; 80048; 80053; 82803; 82947; 83880; 84145; 84484; 85025; 85027; 87040; 92610; 93005; 93010; 94640; 94660; 94762; 96365-59; 99285-25; A9270; J0456; J0696; J1650; J2919; J7030; J7050; Q9967

== ENCOUNTER 2025-04-30 11:14 | Inpatient (IN) | payer OTHER ==
[~2025-04-30] VITALS: Ht 175.3 cm; Wt 94.9 kg
[~2025-04-30 11:14] MED LIST changes: +ALBU2.5V5 INH; +AZIT500 PO; +MASOPHEN325 M2 PO; +MIRALAX17 GM PO; +TRAM50 PO
[2025-04-30] MEDS ORDERED: Ipratropium/Albuterol SulF 2.5-0.5MG/3 ML Amp INH ONE (11:20)
[2025-04-30 11:48] LABS: BASOPHILS ABSOLUTE AUTO 0.04 K/mm3 (0.00-0.23); BASOPHILS PERCENT AUTO 0 % (0-2); EOSINOPHILS ABSOLUTE AUTO 0.04 K/mm3 (0.00-0.68); EOSINOPHILS PERCENT AUTO 0 % (0-6); Hematocrit 40.5 % (37.0-53.0); Hemoglobin 12.7 g/dL (13.5-17.5); IMMATURE GRAN ABSOLUTE AUTO 0.05 K/mm3 (0.00-0.10); IMMATURE GRAN PERCENT AUTO 0 % (0-1); LYMPHOCYTES ABSOLUTE AUTO 1.77 K/mm3 (0.84-5.20); LYMPHOCYTES PERCENT AUTO 14 % (21-46); MONOCYTES ABSOLUTE AUTO 0.85 K/mm3 (0.16-1.47); MONOCYTES PERCENT AUTO 7 % (4-13); Mean Corpuscular HGB Conc 31.4 g/dL (31.5-36.5); Mean Corpuscular Volume 90 fL (80-100); NEUTROPHILS ABSOLUTE AUTO 9.80 K/mm3 (1.96-9.15); NEUTROPHILS PERCENT AUTO 78 % (41-73); NRBC ABSOLUTE 0.00 K/mm3 (0.00-0.02); NRBC Auto 0.0 /100 WBC (0.0-0.2); Platelet Count 294 K/mm3 (150-400); RDW Coefficient Variation 13.9 % (11.7-14.2); RDW Standard Deviation 46.2 fL (35.1-46.3)
[2025-04-30 11:51] LABS: pH Blood Venous 7.37 (7.34-7.37)
[2025-04-30] MEDS ORDERED: Doxycycline Hyclate 100 MG in Dextrose 5% 250 ML IV ONE (12:00)
[2025-04-30] MEDS ORDERED: CefTRIAXone Sodium 1,000 MG in NS 100 ML IV ONE (12:00)
[2025-04-30 12:12] LABS: Influenza A, PCR NEGATIVE (NEGATIVE); Influenza B, PCR NEGATIVE (NEGATIVE); Resp Syncytial Virus, PCR NEGATIVE (NEGATIVE); SARS-Cov-2 (COVID-19) PCR, MMC NEGATIVE (NEGATIVE)
[2025-04-30 12:12] LABS: Anion Gap 5.0 mmol/L (3-11); Blood Urea Nitrogen 23.0 mg/dL (8-24); CO2, Blood 36.0 mmol/L (21-32); Calcium, Blood 9.1 mg/dL (8.5-10.1); Chloride, Blood 98.0 mmol/L (98-108); Creatinine, Blood 0.67 mg/dL (0.60-1.20); Glucose, Blood 128.0 mg/dL (70-99); Potassium, Blood 4.0 mmol/L (3.5-5.5); Sodium, Blood 135.0 mmol/L (136-145)
[2025-04-30] MEDS ORDERED: Ondansetron HCl 2 MG / ML 2ML Vial IV PRN (15:10)
[2025-04-30] MEDS ORDERED: Sodium Chloride 3% For Inhalation 15 ML VIAL.NEB INH SCH (15:10)
[2025-04-30] MEDS ORDERED: Ipratropium/Albuterol SulF 2.5-0.5MG/3 ML Amp INH SCH (15:10)
[2025-04-30] MEDS ORDERED: FLU VACC TS2025(65UP)/MF59C/PF 45 MCG/0.5 ML SYRINGE IM SCH (15:15)
[2025-04-30] MEDS ORDERED: Albuterol 2.5 MG/3 ML VIAL INH PRN (15:15)
[2025-04-30] MEDS ORDERED: NS 1,000 ML IV SCH (15:20)
[2025-04-30 17:19] VITALS: BP 163/75
[2025-04-30] MEDS ORDERED: LORA.5 PO (18:23)
[2025-04-30] MEDS ORDERED: LOSA25 PO (18:24)
--- NOTE | 2025-04-30 18:48 | NUR ---
ADMISSION NOTE: PATIENT ARRIVED TO THE UNIT VIA GURNEY AT 1710, WAS TRANSFERRED ONTO THE BED, SETTLED IN THE ROOM, CALL LIGHT PROVIDED. 3 L N/C BASELINE. HE DID HAVE AN INCONTINENT BM, WAS CLEANED UP AND CHANGED. STATES THAT HE HAS ACCIDENTS SOMETIMES, BUT USUALLY KNOWS WHEN HE NEEDS TO GO THE RESTROOM. HE IS IN BED, ALERT, CALL LIGHT WITHIN REACH, NO SIGNS OR SYMPTOMS OF DISTRESS, PLAN OF CARE ONGOING.
[2025-04-30 19:33] VITALS: BP 137/71
[2025-05-01 02:31] VITALS: BP 135/108
[2025-05-01 05:02] LABS: Hematocrit 38.9 % (37.0-53.0); Hemoglobin 12.1 g/dL (13.5-17.5); Mean Corpuscular HGB Conc 31.1 g/dL (31.5-36.5); Mean Corpuscular Volume 91 fL (80-100); NRBC ABSOLUTE 0.00 K/mm3 (0.00-0.02); NRBC Auto 0.0 /100 WBC (0.0-0.2); Platelet Count 263 K/mm3 (150-400); RDW Coefficient Variation 13.9 % (11.7-14.2); RDW Standard Deviation 46.4 fL (35.1-46.3)
[2025-05-01 06:08] LABS: Anion Gap 6.0 mmol/L (3-11); Blood Urea Nitrogen 25.0 mg/dL (8-24); CO2, Blood 32.0 mmol/L (21-32); Calcium, Blood 8.8 mg/dL (8.5-10.1); Chloride, Blood 100.0 mmol/L (98-108); Creatinine, Blood 0.7 mg/dL (0.60-1.20); Glucose, Blood 175.0 mg/dL (70-99); Potassium, Blood 4.3 mmol/L (3.5-5.5); Sodium, Blood 134.0 mmol/L (136-145)
--- NOTE | 2025-05-01 06:53 | NUR ---
SHIFT SUMMARY AT START OF SHIFT, PT ON PHONE WITH HIS . THIS RN SPOKE WITH HER. SHE WANTED UPDATES, WHICH THIS RN DID NOT HAVE ANY AT THE TIME. PTS CALLED BACK APPROX MIDNIGHT, ASKED FOR UPDATES AGAIN. THIS RN WAS ON LUNCH BREAK AT THAT TIME. PTS LEFT MESSAGE SHE WAS GOING TO BED AND WOULD CALL AGAIN IN THE MORNING. PT TREATED FOR PAIN APPROX [phone]. HE IS NOW RESTING PEACEFULLY IN BED. PT WOKE FOR MORNING MEDS, ASKED FOR PAIN MEDICATION. MEDICATED PER EMAR APPROX [phone].
[2025-05-01 07:40] VITALS: BP 139/77
[2025-05-01] MEDS ORDERED: Enoxaparin 40 MG/0.4 ML SYR SC SCH (09:00)
--- NOTE | 2025-05-01 11:47 | NUR ---
RN VERIFIED WITH [employer] THAT PT LAST FLU AND PNA VACCINE WAS ADMINISTERED ON 05/07/24. THIS RN WILL ADMINISTER FLU VACCINE PER ORDERS. PER HOSPITALIST NO ORDER WILL BE GIVEN FOR PNA VACCINE AT THIS TIME. PT INFORMED.
[2025-05-01 16:41] VITALS: BP 129/72
--- NOTE | 2025-05-01 16:41 | NUR ---
SHIFT SUMMARY NO ACUTE CHANGES, A/Ox4, ABLE TO MAKE NEEDS KNOWN AND USES CALL LIGHT APPROPRIATELY. TREATED FOR PAIN PER EMAR. ON 3 L/MIN VIA NC - BASELINE FOR PT. SATING 95% ON CONT PULSE OX. BREATHING TX PER RT. GOOD ORAL INTAKE. USES URINAL INDEPENDENTLY AT BEDSIDE. PT RESTING IN BED WITH BED IN LOWEST POSITION, CALL LIGHT IN REACH. PT APPEARS TO BE IN NO DISTRESS.
[2025-05-01 19:19] VITALS: BP 136/77
[2025-05-02 02:43] VITALS: BP 143/83
--- NOTE | 2025-05-02 04:06 | NUR ---
SHIFT SUMMARY PATIENT HAD NO ACUTE CHANGES. ALERT ORIENTED AND STAND PIVOT TO BSC. USES URINAL AT BEDSIDE. NO IV ACCESS. ON 3L O2 NC AND BASELINE. DENIES CHEST PAIN AND N/V. RT IN FOR BREATING TX AND LATER SETUP CPAP. REPORTED GENERAL PAIN/ LEGS x 2 AND ULTRAM 50 MG AND TYLENOL 650 MG COMBO GIVEN PER EVENT. ENCOURAGED TO USE FLUTTER VALVE. CALL LIGHT IN REACH. BED IN LOWEST POSITION. WILL CONTINUE TO MONITOR UNTIL DAY SHIFT NURSE ASSUMES CARE.
[2025-05-02 05:29] LABS: Hematocrit 38.1 % (37.0-53.0); Hemoglobin 11.9 g/dL (13.5-17.5); Mean Corpuscular HGB Conc 31.2 g/dL (31.5-36.5); Mean Corpuscular Volume 92 fL (80-100); NRBC ABSOLUTE 0.00 K/mm3 (0.00-0.02); NRBC Auto 0.0 /100 WBC (0.0-0.2); Platelet Count 274 K/mm3 (150-400); RDW Coefficient Variation 14.2 % (11.7-14.2); RDW Standard Deviation 47.8 fL (35.1-46.3)
[2025-05-02 05:51] LABS: Albumin, Blood 3.0 g/dL (3.4-5.0); Anion Gap 4 mmol/L (3-11); Blood Urea Nitrogen 25 mg/dL (8-24); CO2, Blood 34 mmol/L (21-32); Calcium, Blood 8.9 mg/dL (8.5-10.1); Chloride, Blood 103 mmol/L (98-108); Creatinine, Blood 0.70 mg/dL (0.60-1.20); Glucose, Blood 126 mg/dL (70-99); Magnesium, Blood 2.1 mg/dL (1.6-2.4); Phosphorus, Blood 2.7 mg/dL (2.5-4.9); Potassium, Blood 3.9 mmol/L (3.5-5.5); Sodium, Blood 137 mmol/L (136-145)
[2025-05-02 08:09] VITALS: BP 142/61
[2025-05-02 09:20] VITALS: BP 149/73
[2025-05-02 16:34] VITALS: BP 120/67
--- NOTE | 2025-05-02 18:33 | NUR ---
SHIFT SUMMARY NO ACUTE CHANGES, A/Ox4, ABLE TO MAKE NEEDS KNOWN AND CALLS APPROPRIATELY. ABLE TO REPOSITION SELF IN BED AND USE URINAL INDEPENDENTLY. REMAINS ON3 L/MIN VIA NC @ BASELINE SATING 92-96%. PAIN MANAGED PER EMAR. GOOD ORAL INTAKE. PRODUCTIVE COUGH, LUNGS SOUNDING CONGESTED TODAY. PT USING FLUTTER VALVE INDEPENDENTLY. PT RESTING IN BED WITH NO S/SX OF DISTRESS. BED IN LOWEST POSITION AND CALL LIGHT IN REACH.
[2025-05-02 19:43] VITALS: BP 156/70
[2025-05-03 05:00] VITALS: BP 150/88
[2025-05-03 07:28] VITALS: BP 163/80
[2025-05-03] MEDS ORDERED: GUAI600T33 PO (10:44)
--- NOTE | 2025-05-03 11:13 | NUR ---
ASSUMPTION OF CARE: THIS RN ASSUMED CARE OF PATIENT. ASLEEP DURING SHIFT CHANGE REPORT. LYING IN BED c HOB ELEVATED. BREATHING EVEN AND UNLABORED c 3LPM/NC, WHICH IS HIS BASELINE. SALINE LOCKED. BED IN LOWEST POSITION. CALL LIGHT WITHIN REACH. ACUTE NEEDS MET.
--- NOTE | 2025-05-03 14:00 | NUR ---
DISCHARGE SUMMARY: A&Ox4. COOPERATIVE WITH CARE. CALLS APPROPRIATELY AND IS ABLE TO ADVOCATE NEEDS EFFECTIVELY. 1PA c STAND/PIVOT FOR TRANSFERS; W/C FOR DISTANCE. CONTINENT OF BOWEL AND BLADDER. LBM 2-3 DAYS AGO; STATES THIS IS NORMAL AND DECLINES STOOL SOFTENERS. MEDS WHOLE c FLUIDS. PAIN MANAGED c ALTERNATING APAP AND TRAMADOL. MED REC FAXED TO [facility] WHERE PATIENT IS RETURNING. INSTRUCTED TO FOLLOW-UP WITH PCP. ALL QUESTIONS ANSWERED TO DISCHARGING NURSE'S ABILITY AND PATIENT VOICED UNDERSTANDING OF DISCHARGE PLAN. LEFT FLOOR WITH ALL BELONGINGS AND DISCHARGE PACKET, ESCORTED BY MEDICAL TRANSPORT.
== END 2025-05-03 14:09 | DRG 189 ==
LOC: ER 11:14 → MEDS 11:15
PROVIDERS: Emergency Medicine; Internal Medicine; Nurse Practitioner Acute Care; ADMIT Internal Medicine
PROC: 3E03329 Introduction of Other Anti-infective into Peripheral Vein, Percutaneous Approach (ICD-10-PCS; principal; 2025-04-30)
PROC: 3E02340 Introduction of Influenza Vaccine into Muscle, Percutaneous Approach (ICD-10-PCS; 2025-04-30)
PROC: 5A09357 Assistance with Respiratory Ventilation, Less than 24 Consecutive Hours, Continuous Positive Airway Pressure (ICD-10-PCS; 2025-05-01)
DX: J96.21 Acute and chronic respiratory failure with hypoxia (principal); J44.1 Chronic obstructive pulmonary disease with (acute) exacerbation; I10 Essential (primary) hypertension; K21.9 Gastro-esophageal reflux disease without esophagitis; E78.5 Hyperlipidemia, unspecified; E11.9 Type 2 diabetes mellitus without complications; G89.4 Chronic pain syndrome; Z99.81 Dependence on supplemental oxygen; I44.0 Atrioventricular block, first degree; N40.0 Benign prostatic hyperplasia without lower urinary tract symptoms; F32.A Depression, unspecified; J96.22 Acute and chronic respiratory failure with hypercapnia; U09.9 Post COVID-19 condition, unspecified; Z98.890 Other specified postprocedural states; Z86.74 Personal history of sudden cardiac arrest; Z79.51 Long term (current) use of inhaled steroids; Z79.52 Long term (current) use of systemic steroids; Z79.82 Long term (current) use of aspirin; Z79.899 Other long term (current) drug therapy
CPT/HCPCS: 36415; 71045; 71260; 80048; 80069; 82803; 82947; 83735; 83880; 84484; 85025; 85027; 85379; 87637; 90653; 93005; 93010; 94640; 94660; 94664; 94760; 94762; 96361; 96365; 96366; 96368; 96372; 96375; 99285-25; A9270; G0008; G0378; J0696; J1650; J2919; J7030; J7060; J7512; Q9967

== ENCOUNTER 2025-05-07 05:13 | Inpatient (IN) | payer OTHER ==
[~2025-05-07] VITALS: Ht 175.3 cm; Wt 92.8 kg
--- NOTE | 2025-05-07 01:25 | NUR ---
Physician Contacted: No IV access order & BLEMISH REMOVER Was asked by Primary RN Katrin to see if Dr. Hahn would give the above orders because patient has no tele and no iv meds. Also, pt has copd and is here for copd exacerbation w/ increased O2 requirements on admission so O2 should be monitored via BLEMISH REMOVER. Received T.O. for both. Orders entered.
[~2025-05-07 05:13] MED LIST changes: +GUAI600T33 PO; +LORA.5 PO; +LOSA25 PO
[2025-05-07] MEDS ORDERED: Ipratropium/Albuterol SulF 2.5-0.5MG/3 ML Amp INH ONE (05:30)
[2025-05-07 05:47] LABS: pH Blood Venous 7.39 (7.34-7.37)
[2025-05-07 05:52] LABS: BASOPHILS ABSOLUTE AUTO 0.06 K/mm3 (0.00-0.23); BASOPHILS PERCENT AUTO 0 % (0-2); EOSINOPHILS ABSOLUTE AUTO 0.27 K/mm3 (0.00-0.68); EOSINOPHILS PERCENT AUTO 2 % (0-6); Hematocrit 38.0 % (37.0-53.0); Hemoglobin 12.2 g/dL (13.5-17.5); IMMATURE GRAN ABSOLUTE AUTO 0.16 K/mm3 (0.00-0.10); IMMATURE GRAN PERCENT AUTO 1 % (0-1); LYMPHOCYTES ABSOLUTE AUTO 1.76 K/mm3 (0.84-5.20); LYMPHOCYTES PERCENT AUTO 12 % (21-46); MONOCYTES ABSOLUTE AUTO 1.11 K/mm3 (0.16-1.47); MONOCYTES PERCENT AUTO 8 % (4-13); Mean Corpuscular HGB Conc 32.1 g/dL (31.5-36.5); Mean Corpuscular Volume 89 fL (80-100); NEUTROPHILS ABSOLUTE AUTO 11.08 K/mm3 (1.96-9.15); NEUTROPHILS PERCENT AUTO 77 % (41-73); NRBC ABSOLUTE 0.00 K/mm3 (0.00-0.02); NRBC Auto 0.0 /100 WBC (0.0-0.2); Platelet Count 304 K/mm3 (150-400); RDW Coefficient Variation 14.6 % (11.7-14.2); RDW Standard Deviation 47.4 fL (35.1-46.3)
[2025-05-07 06:23] LABS: Influenza A, PCR NEGATIVE (NEGATIVE); Influenza B, PCR NEGATIVE (NEGATIVE); Resp Syncytial Virus, PCR NEGATIVE (NEGATIVE); SARS-Cov-2 (COVID-19) PCR, MMC NEGATIVE (NEGATIVE)
[2025-05-07 06:24] LABS: Alanine Aminotransfer (ALT/SGP 27.0 U/L (12-78); Albumin, Blood 3.0 g/dL (3.4-5.0); Albumin/Globulin Ratio 0.9 (0.8-1.8); Anion Gap 6.0 mmol/L (3-11); Aspartate Aminotrans (AST/SGOT 15.0 U/L (12-37); Bilirubin, Total 0.2 mg/dL (0.1-1.0); Blood Urea Nitrogen 23.0 mg/dL (8-24); CO2, Blood 33.0 mmol/L (21-32); Calcium, Blood 8.9 mg/dL (8.5-10.1); Chloride, Blood 101.0 mmol/L (98-108); Creatinine, Blood 0.84 mg/dL (0.60-1.20); Globulin, Blood 3.4 g/dL (2.2-4.0); Glucose, Blood 118.0 mg/dL (70-99); Magnesium, Blood 1.9 mg/dL (1.6-2.4); Potassium, Blood 4.2 mmol/L (3.5-5.5); Sodium, Blood 136.0 mmol/L (136-145); Total Protein, Blood 6.4 g/dL (6.4-8.2)
[2025-05-07] MEDS ORDERED: FLU VACC TS2025(65UP)/MF59C/PF 45 MCG/0.5 ML SYRINGE IM SCH (13:00)
[2025-05-07] MEDS ORDERED: Ipratropium/Albuterol SulF 2.5-0.5MG/3 ML Amp INH SCH (13:50)
[2025-05-07 14:21] VITALS: BP 144/80
--- NOTE | 2025-05-07 14:30 | NUR ---
ANAHI FITCH @ [facility]; SHE WILL FAX OVER MOST RECENT MAR FOR PATIENT.
[2025-05-07 16:39] VITALS: BP 147/78
--- NOTE | 2025-05-07 18:24 | NUR ---
Patient admit, copd exascerbation, sob, had prev been here, sent o [facility]hab, who sent him back to us, hx nemonia, anxiety, tremors, chemo from prostate cancer, teli, pulse ox, 4 LTR oxygen, ambulates well although very unsteady b/c tremors, wieght, vitals, skin check, freshen up, ice water, diet pepsi and snacks provided, comfortable in bed. aware call light and expectations for safety in restroom needs to call 24 hours or til PT eval.
[2025-05-07] MEDS ORDERED: Albuterol 2.5 MG/3 ML VIAL INH PRN (18:30)
--- NOTE | 2025-05-07 19:02 | NUR ---
REPORT RECEIVED PT ARRIVED FROM ED A/O AND ON 4L NC, PT DOING MUCH BETTER NO LONGER IN DISTRESS AND SATURATION MAINTAINING >96%. ADMISSION DATABASE DONE, CALL LIGHT WITHIN REACH.
--- NOTE | 2025-05-07 19:06 | NUR ---
CALLED [facility] FOR MED REC MED REC WAS ATTEMPTED FROM [facility] WITHOUT SUCCESS. AWARE AND MEDS IMPUTTED FROM PREVIOUS ADMIT. PT STATES THERE HAS BEEN NO CHANGES
[2025-05-07 19:46] VITALS: BP 111/78
[2025-05-08 04:37] VITALS: BP 147/74
--- NOTE | 2025-05-08 05:14 | NUR ---
SHIFT SUMMARY PT A&OX4, ON 3L O2 NC, VSS, AMB W/ ASSIST TO THE BSC, TOLERATING PO, VOIDING, AND PAIN MANAGED PER EMAR. NO ACUTE CHANGES. CALL LIGHT WITHIN REACH.
[2025-05-08 07:46] VITALS: BP 144/61
[2025-05-08] MEDS ORDERED: Enoxaparin 40 MG/0.4 ML SYR SC SCH (09:00)
[2025-05-08] MEDS ORDERED: Cholecalciferol 1000 Unit Tablet (=25MCG) PO SCH (09:00)
[2025-05-08] MEDS ORDERED: Polyethylene Glycol 3350 17 gm PO SCH (09:00)
[2025-05-08 15:15] VITALS: BP 131/55
--- NOTE | 2025-05-08 19:27 | NUR ---
PT A/OX4. PLEASANT AND COOPERATIVE WITH CARE. PT WAS ON 3L O2 NC BUT DESATS TO THE 70s WITH MINIMAL EXERTION SO HES CURRENTLY ON 3.5L NC. USES CALL LIGHT APPROPRIATELY. CURRENTLY ON BEDREST DUE TO RESPIRATORY STATUS, USES BEDSIDE URINAL. PAIN HAS BEEN TREATED PER EMAR. NO ACUTE NEEDS AT THIS TIME.
[2025-05-08 19:56] VITALS: BP 120/64
[2025-05-08] MEDS ORDERED: Docusate Sodium/Senna 1 Tab PO SCH (21:00)
[2025-05-09 02:45] VITALS: BP 138/76
--- NOTE | 2025-05-09 04:31 | NUR ---
SHIFT SUMMARY PATIENT ADMITTED FOR COPD EXACERBATION. PATIENT ON 3 TO 4 LITERS OF OXYGEN. PATIENT MEDICATED FOR PAIN PER EMAR. PATIENT UPSET ABOUT MEDICATION CHANGES AND NOT RECEIVING TRAMADOL AND TYLENOL TOGETHER. TYLENOL WAS GIVEN TO PATIENT AT 0036 AND TRAMADOL WAS GIVEN AT 0235 AND PATIENT COMPLAINED THEY SHOULD HAVE BEEN GIVEN TOGETHER PATIENT BECAME VERBALLY ABUSIVE TOWARD STAFF CALLING MY PRECEPTOR AND MYSELF "FUCKING BITCHES AND FUCKING LIARS". WHEN ATTEMPTING TO DEESCALATE THE SITUATION PATIENT BECAME MORE AGITATED, MY PRECEPTOR AND MYSELF LEFT THE ROOM TO LET THE PATIENT CALM DOWN. PATIENT APPEARS TO BE RESTING COMFORTABLY AT THIS TIME. BED RAILS UP X2. BED IN LOWEST POSITION FOR SAFETY. CALL LIGHT WITHIN REACH.
[2025-05-09 07:26] VITALS: BP 152/70
[2025-05-09 15:31] VITALS: BP 121/64
--- NOTE | 2025-05-09 18:21 | NUR ---
SUMMARY PT BACK AT BASELINE 3L NC. FINE CRACKLES AUSCULTATED TO LEFT LUNG BASE. PT REPORTS MILD PRODUCTIVE COUGH. ENCOURAGED PT TO DRINK WATER WITH GUAFENESIN. HOME O2 EVAL COMPLETED FOR NEW PARAMETERS WITH EXERTION. PLAN TO GO BACK TO PSYCHIATRIC WHEN MEDICALLY CLEARED FOR DC. PRN TRAMADOL GIVEN TWICE THIS SHIFT. PT ABLE TO MAKE NEEDS KNOWN. USING URINAL INDEPENDENTLY.
[2025-05-09 20:08] VITALS: BP 120/61
[2025-05-10 04:28] VITALS: BP 147/87
--- NOTE | 2025-05-10 04:45 | NUR ---
SHIFT SUMMARY 74 YR M. FULL CODE. NO ACUTE CHANGES THIS SHIFT. PT APPEARS TO BE FEELING BETTER AND HAS SLEPT FOR MOST OF THE NIGHT. HE IS REQUESTING PAIN MEDS LESS FREQUENTLY. HE REMAINS ON 3L O2 AND SATS ARE REMAINING WNL. NO IV ACCESS AND NO TELEMETRY. A&O AND ABLE TO MAKE NEEDS KNOWN. BED IN LOW POSITION AND CALL LIGHT IN REACH.
[2025-05-10 07:28] VITALS: BP 140/63
[2025-05-10] MEDS ORDERED: Formoterol/Mometasone MDI 5/200 mcg 13 GM INH SCH (07:40)
[2025-05-10 10:42] VITALS: BP 137/65
[2025-05-10 15:10] VITALS: BP 142/62
--- NOTE | 2025-05-10 20:02 | NUR ---
SHIFT SUMMARY- BEDSIDE REPORT COMPLETED WITH NIGHT RN, PT BIOX WAS ALARMING WITH THE EXERTION OF THE PT ATTEMPTING TO USE THE URINAL, AND HE WAS HAVING TROUIBLE VOIDING WITH THE SOUND. HE REQUESTED O2 INCREASE TO 3L. THAT SEEMED TO SOLVE THE PROBLEM. MEDICATED WITH TRAMADOL AT THE TIME OF BEDSIDE REPORT. NO S&S OF DISTRESS NOTED AT THAT TIME. PLAN IS FOR PT TO DC BACK TO [facility] EARLY TOMORROW.
[2025-05-10 20:42] VITALS: BP 111/62
[2025-05-11 02:48] VITALS: BP 146/74
--- NOTE | 2025-05-11 06:08 | NUR ---
SHIFT SUMMARY PATIENT ADMITTED FOR COPD EXACERBATION. FULL CODE. PATIENT RESTING COMFORTABLY THROUGHOUT THE SHIFT. BED REST AT THIS TIME. PATIENT ON 3L OF OXYGEN VIA NASAL CANNULA, DESATS WITH EXERTION. BED RAILS UP X3. BED IN LOWEST POSITION FOR SAFETY. CALL LIGHT WITHIN REACH.
[2025-05-11 07:33] VITALS: BP 118/99
--- NOTE | 2025-05-11 07:40 | NUR ---
PT HIGH HR ON AM VITALS IS INACCURATE, POSSIBLY THROWN OFF BY THE TREMMORS. APICAL PULSE IS 74.
[2025-05-11 10:20] VITALS: BP 147/69
--- NOTE | 2025-05-11 17:27 | NUR ---
DISCHARGE NOTE- PT WAS DISCHARGED BACK TO [facility]. HE WAS TAKEN VIA WC TRANSPORT. RECIEVED A CALL FROM [facility] THEY DID NOT RECIEVE ORDERS FOR THE PT MEDICATIONS. PROVIDED REPORT TO THE RN THERE AND FAXED COPYS OF THE PACKET NEEDED TO THE NUMBER THEY PROVIDED. PT HAD NO S&S OF DISTRESS NOTED AT THE TIME OF DISCHARGE. NO IV ACCESS WAS IN PLACE TO DC PRIOR TO DISCHARGE.
== END 2025-05-11 15:25 | DRG 189 ==
LOC: ER 05:13 → MEDS 05:14
PROVIDERS: Student in an Organized Health Care Education/Training Program; ADMIT Internal Medicine
DX: J96.21 Acute and chronic respiratory failure with hypoxia (principal); J44.1 Chronic obstructive pulmonary disease with (acute) exacerbation; J96.22 Acute and chronic respiratory failure with hypercapnia; I10 Essential (primary) hypertension; K21.9 Gastro-esophageal reflux disease without esophagitis; E78.5 Hyperlipidemia, unspecified; G89.4 Chronic pain syndrome; E11.9 Type 2 diabetes mellitus without complications; N40.0 Benign prostatic hyperplasia without lower urinary tract symptoms; U09.9 Post COVID-19 condition, unspecified; Z87.891 Personal history of nicotine dependence; Z86.74 Personal history of sudden cardiac arrest; Z79.82 Long term (current) use of aspirin; Z79.51 Long term (current) use of inhaled steroids; Z79.52 Long term (current) use of systemic steroids; Z79.899 Other long term (current) drug therapy
CPT/HCPCS: 71045; 80053; 82803; 83735; 83880; 85025; 87637; 93005; 93010; 94640; 94664; 94760; 94761; 94762; 99285-25; A9270; G0378; J1650; J7512

== ENCOUNTER 2025-05-26 03:48 | Inpatient (IN) | payer OTHER ==
[~2025-05-26] VITALS: Ht 175.3 cm; Wt 95.3 kg
[2025-05-26 04:01] LABS: pH Blood Venous 7.30 (7.34-7.37)
[2025-05-26 04:05] LABS: BASOPHILS ABSOLUTE AUTO 0.04 K/mm3 (0.00-0.23); BASOPHILS PERCENT AUTO 0 % (0-2); EOSINOPHILS ABSOLUTE AUTO 0.15 K/mm3 (0.00-0.68); EOSINOPHILS PERCENT AUTO 2 % (0-6); Hematocrit 44.2 % (37.0-53.0); Hemoglobin 13.6 g/dL (13.5-17.5); IMMATURE GRAN ABSOLUTE AUTO 0.03 K/mm3 (0.00-0.10); IMMATURE GRAN PERCENT AUTO 0 % (0-1); LYMPHOCYTES ABSOLUTE AUTO 2.06 K/mm3 (0.84-5.20); LYMPHOCYTES PERCENT AUTO 22 % (21-46); MONOCYTES ABSOLUTE AUTO 0.55 K/mm3 (0.16-1.47); MONOCYTES PERCENT AUTO 6 % (4-13); Mean Corpuscular HGB Conc 30.8 g/dL (31.5-36.5); Mean Corpuscular Volume 92 fL (80-100); NEUTROPHILS ABSOLUTE AUTO 6.68 K/mm3 (1.96-9.15); NEUTROPHILS PERCENT AUTO 70 % (41-73); NRBC ABSOLUTE 0.00 K/mm3 (0.00-0.02); NRBC Auto 0.0 /100 WBC (0.0-0.2); Platelet Count 278 K/mm3 (150-400); RDW Coefficient Variation 14.9 % (11.7-14.2); RDW Standard Deviation 50.9 fL (35.1-46.3)
[2025-05-26] MEDS ORDERED: CefTRIAXone Sodium 1,000 MG in NS 50 ML IV ONE (05:25)
[2025-05-26] MEDS ORDERED: Ipratropium/Albuterol SulF 2.5-0.5MG/3 ML Amp INH ONE (05:25)
[2025-05-26 05:46] LABS: Alanine Aminotransfer (ALT/SGP 21.0 U/L (12-78); Albumin, Blood 3.5 g/dL (3.4-5.0); Albumin/Globulin Ratio 1.0 (0.8-1.8); Anion Gap 5.0 mmol/L (3-11); Aspartate Aminotrans (AST/SGOT 14.0 U/L (12-37); Bilirubin, Total 0.3 mg/dL (0.1-1.0); Blood Urea Nitrogen 14.0 mg/dL (8-24); CO2, Blood 35.0 mmol/L (21-32); Calcium, Blood 9.1 mg/dL (8.5-10.1); Chloride, Blood 101.0 mmol/L (98-108); Creatinine, Blood 0.82 mg/dL (0.60-1.20); Globulin, Blood 3.5 g/dL (2.2-4.0); Glucose, Blood 173.0 mg/dL (70-99); Potassium, Blood 4.4 mmol/L (3.5-5.5); Sodium, Blood 137.0 mmol/L (136-145); Total Protein, Blood 7.0 g/dL (6.4-8.2)
[2025-05-26] MEDS ORDERED: Ipratropium/Albuterol SulF 2.5-0.5MG/3 ML Amp INH PRN (06:00)
[2025-05-26] MEDS ORDERED: Ondansetron HCl 2 MG / ML 2ML Vial IV PRN (06:00)
[2025-05-26] MEDS ORDERED: FLU VACC TS2025(65UP)/MF59C/PF 45 MCG/0.5 ML SYRINGE IM SCH (06:00)
[2025-05-26 06:48] LABS: Prothrombin Time Results 10.3 Sec (9.7-11.5)
[2025-05-26] MEDS ORDERED: Insulin Human Lispro 100 Units/ML 3ML Syringe SC SCH (07:30)
[2025-05-26 07:58] LABS: Influenza A, PCR NEGATIVE (NEGATIVE); Influenza B, PCR NEGATIVE (NEGATIVE); Resp Syncytial Virus, PCR NEGATIVE (NEGATIVE); SARS-Cov-2 (COVID-19) PCR, MMC NEGATIVE (NEGATIVE)
[2025-05-26] MEDS ORDERED: Enoxaparin 40 MG/0.4 ML SYR SC SCH (09:00)
--- NOTE | 2025-05-26 09:43 | NUR ---
ARRIVAL NOTE: ALEE ALERT AND ORIENTED X4 & COOPERATIVE WITH HIS CARE. ORIENTED TO THE ROOM AND CALL LIGHT VITAL SIGNS STABLE. CALL LIGHT WITHIN REACH, BED IN LOWEST LOCKED POSIITON,STATING NOTHING ELSE IS NEEDED AT THIS TIME.
[2025-05-26 09:45] VITALS: BP 99/787
[2025-05-26] MEDS ORDERED: ACET500 PO (11:15)
--- NOTE | 2025-05-26 11:18 | NUR ---
MD CONTACTED: THIS RN CALLED MD JUÁREZ REGARDING MED REC BEING COMPLETED & ALEE ASKING FOR PAIN MEDS FOR CHRONIC PAIN. MD TO START HOME MEDS & MADE AWARE THAT PAIENT IS AT HOME BASELINE OXYGEN USE.
[2025-05-26] MEDS ORDERED: Formoterol/Mometasone MDI 5/200 mcg 13 GM INH SCH (11:45)
[2025-05-26 13:34] VITALS: BP 153/70
[2025-05-26 15:42] VITALS: BP 130/82
[2025-05-26 15:53] LABS: Automated BF RBC Count 0.016 M/mm3 (0-0); Automated BF WBC Count 2.658 K/mm3 (0-999); RBC Count, Body Fluid 16000 /mm3 (0-0)
--- NOTE | 2025-05-26 16:00 | NUR ---
RADIOLOGY CALLED: RADIOLOGY CALLED THIS RN AND NOTIFIED THAT ALEE HAS A SMALL PNEUMO & MD HACK WAS NOTIIFED. CHEST X-RAY SCHEDULED FOR 1700 TODAY .
[2025-05-26 16:37] LABS: Lactate Dehydrogenase, Body Fl 142 U/L
[2025-05-26 16:38] LABS: Albumin, Body Fluid 2.5 g/dL
[2025-05-26 17:33] LABS: Color, Body Fluid Amber (None-Yellow); Lymphocytes, Fluid 91.0 % (0.0-18.0); Monocytes/Mononuclear, Fluid 5.0 % (0.0-50.0); Neutrophils, Fluid 2.0 % (0.0-25.0); Other Cells, Fluid 1.0 % (0.0-0.0); Total Cell Count, Body Fluid 100
--- NOTE | 2025-05-26 18:23 | NUR ---
SHIFT SUMMARY: ALEE IS ALERT AND ORIENTED X4 & COOPERATIVE WITH HIS CARE, IS ABLE TO MAKE NEEDS KNOWN. ALEE IS SATTING >92% ON CURRENTLY 15LITERS VIA NON REBRATHER, PER MD ORDER. ALEE HAD A THORACENTESIS DONE TODAY AND 800ML/S WERE REMOVED. ALEE AFTER THORACENTESIS AND DEVELOPED A SMALL PNEUMO AND PER MD ORDER THIS RN TO PLACE REBRATHER AND TO PLACE HIM AT 15LITERS. A FOLLOW UP CHEST X-RAY WAS COMPLETED WITH RESULTS IN THE CHART. RN CALLED MD TO NOTIFY RESULTS BUT DID NOT GET AN ANSWER WILL FOLLOW UP WITH ANOTHER CALL IN 20 MINUTES. ALEE IS ON TELE SHOWING SINUS RYTHM WITH RATE BETWEEN 70-80'S, DID TOUCH 110 AFTER THE PROCEDURE, WAS ASYMPTOMATIC DURING THAT EVENT. ALEE WAS UPATED AFTER THE PROCEDURE. PATIENT IS ACHS BLOOD SUGAR CHECKS AND WAS GIVEN INSULIN PER SLIDING SCALE,SEE EMAR FOR MORE INFORMATION. ALEE IS [employer]SIST[employer] CARB DIET, WHEELCHAIR AT BASELINE AND IS ABLE TO USE THE BEDISDE COMMODE WIHT 1 PERSON ASSIST. BESSY WHEN GETTING UP BUT STEADY ON HIS FEET. ALEE CURRENTLY SITTING UP IN BED WATCHING TV, CALL LIGHT WIHTIN REACH & BED IN LOWEST LOCKED POSITION STATING NOTHING ELSE IS NEEDED AT THIS TIME.
[2025-05-26] MEDS ORDERED: FentaNYL Citrate 50 MCG/ML 2 ML Injection IV PRN (18:40)
--- NOTE | 2025-05-26 18:43 | NUR ---
KIARA VISUAL MERCHANDISING COORDINATOR CALLED: THIS RN CALLED NIGHT VISUAL MERCHANDISING COORDINATOR REGARDING REPEAT RESULTS FO CHEST X-RAY & PAIENT REQUESTING PAIN MEDICATIONS BUT NOT ABLE TO HAVE ANY AT THIS TIME. GAVE VERBAL ORDER FOR FETANYL, ORDERS PLACED. KIARA TO CONTACT RADI[facility] AND FOLLOW UP WITH CHEST X-RAY IMAGES.
[2025-05-26 19:18] VITALS: BP 153/80
[2025-05-26] MEDS ORDERED: LORazepam 2 MG/ML 1ML Injection ONE (19:23)
[2025-05-26] MEDS ORDERED: FentaNYL Citrate 50 MCG/ML 2 ML Injection ONE (19:24)
[2025-05-26] MEDS ORDERED: FentaNYL Citrate 50 MCG/ML 2 ML Injection IV ONE (19:30)
[2025-05-26] MEDS ORDERED: LORazepam 2 MG/ML 1ML Injection IV ONE (19:30)
--- NOTE | 2025-05-26 20:00 | NUR ---
ASSUMED CARE AT 1900. REPORT RECEIVED FROM DAY SHIFT RN. PT IS A/OX4, ENDORSING 8/10 CHEST PAIN THAT HE SAYS HE CAN ONLY DESCRIBE SHARP AND COLD UPON INHALATION. HE IS ON 15L VIA NONREBREATHER. SATS ABOVE 90%. PT EXPERIENCED DYSPNEA, SOB, AND LABORED BREATHING. LINER MACHINE OPERATOR HELPER TO BEDSIDE AT SHIFT CHANGE TO ADDRESS NECESSITY FOR CHEST TUBE FOR PT. PT EDUCATED ON PROGRESSING PNEUMOTHORAX AND AGREED ON CHEST TUBE PLACEMENT. DR CRANDALL TO BEDSIDE TO PLACE CHEST TUBE. PLACEMENT SUCCESSFUL AND VERIFIED VIA CHEST XRAY. PT REPORTS LITTLE CHANGE IN CHEST PAIN, BUT IS NOTABLY LESS DYSPNEIC. CHEST TUBED SECURED WITH STAT LOCK AND TO WATER SUCTION. PT TAKEN OFF OF NONREBREATHER AND PUT ON 4L NC WHICH IS HIS BASELINE. DR CRANDALL ROUNDED ON PT. PER DR CRANDALL, CHEST TUBE TO REMAIN IN PLACE AND TO WATER SUCTION OVERNIGHT, PT TO BE REASSESED IN THE MORNING. CHEST XRAY ORDERED.
[2025-05-26 20:40] LABS: Source, Urine Clean Catch
[2025-05-26 20:46] LABS: Bilirubin, Urine Neg (Neg); Color, Urine Yellow (P-Yellow); Glucose Qualitative, Urine Neg (Neg); Ketones, Urine Neg (Neg); Leukocyte Esterase, Urine Neg (Neg); Protein, Urine 2+ (Neg); Specific Gravity, Urine 1.025 (1.003-1.022); Urobilinogen, Urine NORM (Normal)
[2025-05-26 20:53] LABS: White Blood Cells, Urine 0-2 /hpf (0-5)
[2025-05-27] VITALS (7 sets, daily range): BP systolic 127–159; BP diastolic 70–110
[2025-05-27 04:09] LABS: BASOPHILS ABSOLUTE AUTO 0.01 K/mm3 (0.00-0.23); BASOPHILS PERCENT AUTO 0 % (0-2); EOSINOPHILS ABSOLUTE AUTO 0.00 K/mm3 (0.00-0.68); EOSINOPHILS PERCENT AUTO 0 % (0-6); Hematocrit 44.4 % (37.0-53.0); Hemoglobin 13.9 g/dL (13.5-17.5); IMMATURE GRAN ABSOLUTE AUTO 0.07 K/mm3 (0.00-0.10); IMMATURE GRAN PERCENT AUTO 1 % (0-1); LYMPHOCYTES ABSOLUTE AUTO 1.03 K/mm3 (0.84-5.20); LYMPHOCYTES PERCENT AUTO 8 % (21-46); MONOCYTES ABSOLUTE AUTO 0.29 K/mm3 (0.16-1.47); MONOCYTES PERCENT AUTO 2 % (4-13); Mean Corpuscular HGB Conc 31.3 g/dL (31.5-36.5); Mean Corpuscular Volume 92 fL (80-100); NEUTROPHILS ABSOLUTE AUTO 10.86 K/mm3 (1.96-9.15); NEUTROPHILS PERCENT AUTO 89 % (41-73); NRBC ABSOLUTE 0.00 K/mm3 (0.00-0.02); NRBC Auto 0.0 /100 WBC (0.0-0.2); Platelet Count 289 K/mm3 (150-400); RDW Coefficient Variation 14.6 % (11.7-14.2); RDW Standard Deviation 49.6 fL (35.1-46.3)
[2025-05-27 04:43] LABS: Alanine Aminotransfer (ALT/SGP 19.0 U/L (12-78); Albumin, Blood 3.4 g/dL (3.4-5.0); Albumin/Globulin Ratio 1.0 (0.8-1.8); Anion Gap 7.0 mmol/L (3-11); Aspartate Aminotrans (AST/SGOT 11.0 U/L (12-37); Bilirubin, Total 0.3 mg/dL (0.1-1.0); Blood Urea Nitrogen 20.0 mg/dL (8-24); CO2, Blood 33.0 mmol/L (21-32); Calcium, Blood 9.8 mg/dL (8.5-10.1); Chloride, Blood 103.0 mmol/L (98-108); Creatinine, Blood 0.77 mg/dL (0.60-1.20); Globulin, Blood 3.5 g/dL (2.2-4.0); Glucose, Blood 204.0 mg/dL (70-99); Potassium, Blood 5.7 mmol/L (3.5-5.5); Sodium, Blood 137.0 mmol/L (136-145); Total Protein, Blood 6.9 g/dL (6.4-8.2)
[2025-05-27] MEDS ORDERED: CefTRIAXone Sodium 1,000 MG in NS 100 ML IV SCH (06:00)
--- NOTE | 2025-05-27 06:17 | NUR ---
SHIFT SUMMARY PT REMAINED A/OX4 T/O SHIFT. VERBALIZES NEEDS, COOPERATIVE WITH CARE. ENDORSES MOD-SEV PAIN, TREATED PER EMAR. CHES TUBE REMAINED IN PLACED AND TO SUCTION WATER SEAL. NO CREPITIS AT SITE. NO BUBBLING IN CHAMBER T/O NIGHT. SMALL AMOUNT OF SERSANGUINOUS DRAINAIGE IN CHEST TUBE.
[2025-05-27] MEDS ORDERED: Polyethylene Glycol 3350 17 gm PO SCH (09:00)
--- NOTE | 2025-05-27 10:15 | NUR ---
Dr. Hernandez was here to see the patient. Bedside repositioning of chest tube done by him, RN assistance provided. Pt tolerated well; he had fortuitously received 25 mcg IV fentanyl beforehand for pain.
--- NOTE | 2025-05-27 12:52 | NUR ---
PALLIATIVE CARE VISIT: CONSULT RECEIVED FOR ADVANCED CARE PLANNING AND SYMPTOM MANAGEMENT. REVIEWED MEDICAL RECORD, DISCUSSED IN CM MEETING AND SPOKE TO PRIMARY RN ABOUT CONCERNS PRIOR TO VISIT. NO POLST FOUND ON OPR. POLST ON FILE-FULL CODE. 1215 MET WITH PT IN HIS ROOM. PT IS AGREEABLE TO A VISIT. PT HAS CHEST TUBE IN PLACE TO R CHEST WALL, DRAINING REDDISH PINK FLUID. PT DOES NOT GET SOB WITH CONVERSATION. HE IS ABLE TO SPEAK IN FULL SENTENCES. DISCUSSED CODE STATUS WITH PT. EDUCATED ON DNR VS FULL MEASURES. PT WISHES TO REMAIN A FULL CODE. HE STATES "I WANT EVERYTHING DONE, I DON'T WANT TO ." PT STATES HE DID A ADVANCE DIRECTIVE AT THE [place] AND HE THINKS HE DID A POLST TOO. SYMPTOM MANAGEMENT: PT STATES HIS PAIN IS MANAGED WITH CURRENT MEDICATION REGIMEN. HE DENIES SOB, CONSTIPATION, DIARRHEA, ANXIETY. HE REPORTS HE STILL HAS A GOOD APPETITE AND HAS HAD NO RECENT WEIGHT LOSS. PT STATES "I JUST WANT TO KNOW WHY I KEEP GETTING PNA. PT EDUCATED ON ASPIRATION PNA. PT STATES HE DOES NOT CHOKE ON FOOD OR FLUIDS, HE DOES NOT KNOW WHY HIS LUNGS HAS FLUID IN THEM. PT STATES HE HAS NEVER HAD A BARRIUM SWALLOW EVAL. PT HAS NO FURTHER CONCERNS OR QUESTIONS.
--- NOTE | 2025-05-27 18:56 | NUR ---
SHIFT SUMMARY: A/O X4, IRRITABLE BUT COOPERATIVE WITH CARE, PT REPORTS PTSD FROM SERVICE, REQUESTS KNOCK ON DOOR PRIOR TO ENTERING ROOM, BILATERAL UPPER EXTREMITY TREMOR AT BASELINE. SPO2 <92% ON 2-5L, LOW 02 RESERVE, DYSPNIA W/EXERTION, MD CRANDALL TO BEDSIDE TO ADJUST CHEST TUBE, XRAY TO CONFIRM PLACEMENT, CHEST TUBE IS IN PLACE IN RIGHT UPPER CHEST DRAINING SEROSANGINOUS FLUID TO WATER SEAL, APPROX 38ML FLUID IN COLLECTION CHAMBER AFTER MD ADJUSTED PLACEMENT, PT STATES, I CAN BREATHE WAY BETTER NOW. I CAN FEEL A BIG DIFFERENCE IN MY LUNG , DENIES SOB AT REST. NSR, HRR 80 S-90 S, PT DENIES CHEST PAIN OR PRESSURE. PT REPORTS CHRONIC PAIN BUT VERBALIZES SATISFACTION WITH THE PRESCRIBED PAIN REGIMEN. PT DECLINED: REPOSITIONING, BOOSTING IN BED, CHAIR, AND WAFFLE MAT. PT EDUCATED ON PRESSURE INJURY AND RISKS WITH IMMOBILITY.
[2025-05-28 03:16] VITALS: BP 152/71
--- NOTE | 2025-05-28 03:51 | NUR ---
ASSUMED CARE OF PT AT 1900. PT AXOX4 AND ABLE TO USE CALL LIGHT APPROPRIATELY. RIGHT CHEST TUBE IN PLACE AND HOOKED TO WATER SEAL. MINIMAL OUTPUT NOTED THROUGHOUT THE SHIFT. ON 2.5LNC TO MAINTAIN O2 > 92%. ALL OTHER VSS. USES URINAL NEEDED. PRN PAIN MEDICATIONS REQUESTED FOR CHEST TUBE DISCOMFORT. BED IN LOWEST POSITION AND CALL LIGHT WITHIN REACH.
[2025-05-28 04:09] LABS: Hematocrit 42.9 % (37.0-53.0); Hemoglobin 13.3 g/dL (13.5-17.5); Mean Corpuscular HGB Conc 31.0 g/dL (31.5-36.5); Mean Corpuscular Volume 91 fL (80-100); NRBC ABSOLUTE 0.00 K/mm3 (0.00-0.02); NRBC Auto 0.0 /100 WBC (0.0-0.2); Platelet Count 279 K/mm3 (150-400); RDW Coefficient Variation 14.4 % (11.7-14.2); RDW Standard Deviation 48.2 fL (35.1-46.3)
[2025-05-28 04:33] LABS: Anion Gap 5.0 mmol/L (3-11); Blood Urea Nitrogen 27.0 mg/dL (8-24); CO2, Blood 35.0 mmol/L (21-32); Calcium, Blood 9.1 mg/dL (8.5-10.1); Chloride, Blood 103.0 mmol/L (98-108); Creatinine, Blood 0.81 mg/dL (0.60-1.20); Glucose, Blood 183.0 mg/dL (70-99); Potassium, Blood 4.7 mmol/L (3.5-5.5); Sodium, Blood 138.0 mmol/L (136-145)
[2025-05-28 07:44] VITALS: BP 141/60
--- NOTE | 2025-05-28 09:25 | NUR ---
AM NOTE: PATIENT ALERT AND ORIENTED X4. PERRLA. MOVING ALL EXTREMITIES IN BED. COMPLAINS OF CHRONIC ARM AND LEG PAIN, MEDICATED PER EMAR WITH TYLENOL WITH GOOD RELIEF. CHRONIC UPPER EXTREMITY TREMORS. HELPING WITH CARES AND TURNING IN BED. PATIENT STATES HE IS WHEELCHAIR AT BASELINE BUT DOES STAND AND PIVOT TO WHEELCHAIR AND UP TO BATHROOM AT [facility]. TELE SHOWING SR WITH HR 70-90'S. DENIES CHEST PAIN/PRESSURE/PALPIATIONS. SBP 140'S. NO EDEMA NOTED. IV SALINE LOCKED. ON 2L NASAL CANNULA SATING MID 90'S. CHEST TUBE TO RIGHT ANTERIOR CHEST WALL. CHEST TUBE TO WATER SEAL AT THIS TIME. DRESSING C/D/I. CHEST XRAY COMPLETED THIS AM. PATIENT STATES BREATHING HAS OVERALL IMPROVED. MINIMAL PAIN AT CHEST TUBE INSERTION SITE. DRAINAGE IS SEROSANG. BOWEL TONES PRESENT. DENIES ABDOMINAL PAIN/NAUSEA. PATIENT STATES HE HAS NOT HAD A BOWEL MOVEMENT SINCE DAY OF ADMISSION. REFUSED MIRALAX. PATIENT EDUCATED ON BOWEL CARE. USING URINAL IND. INTERMIT INCONTINENCE. ATTENDS IN PLACE. SKIN WITH SCATTERED BRUISING TO ARMS AND ABDOMIN. CALL LIGHT IN REACH. DENIES NEEDS AT THIS TIME. SITTING UP IN BED WATCHING TV.
[2025-05-28 11:27] VITALS: BP 131/93
--- NOTE | 2025-05-28 13:06 | NUR ---
DR. CRAWFORD TO BEDSIDE, THIS RN PRESENT FOR MD ROUNDING. CONTINUE CHEST TUBE ON WATER SEAL. PLAN FOR CHEST XRAY TOMORROW MORNING. NO ORDERS FOR THIS RN TO PLACE. CALL LIGHT IN REACH. AT BEDSIDE AND UPDATED ON PLAN OF CARE.
[2025-05-28 15:23] VITALS: BP 142/64
--- NOTE | 2025-05-28 17:30 | NUR ---
SHIFT SUMMARY: PATIENT REMAINS ALERT AND ORIENTED. INTERMIT LEG/ARM PAIN WELL CHEST TUBE INSERTION SITE PAIN. MEDICATED PER EMAR THROUGHOUT SHIFT AND PAIN MANAGED WELL. BEDREST AT THIS TIME WITH CHEST TUBE. Q2 TURNING PATIENT ALLOWS. EDUCATED ON PRESSURE INJURY PREVENTION. TELE SHOWING SR WITH HR 80'S. RIGHT ANTERIOR CHEST WALL PIGTAIL CHEST TUBE REMAINS IN PLACE WITH GAUZE/TEGADERM DRESSING THAT REMAINS C/D/I. SEE PREVIOUS NOTE ABOUT DR. CRAWFORD AND CHEST TUBE. 5ML OF SEROSANG DRAINAGE THROUGHOUT THIS SHIFT. REMAINS ON WATER SEAL. NO AIR LEAKS NOTED. TOLERATING PO DIET. ACHS BLOOD SUGAR CHECKS. USING URINAL TO VOID. TO BEDSIDE THIS AFTERNOON AND UPDATED ON PLAN OF CARE. PATIENT RESTING IN BED AT THIS TIME AND DENIES NEEDS. CALL LIGHT IN REACH.
[2025-05-28 20:10] VITALS: BP 147/73
[2025-05-28 23:36] VITALS: BP 155/71
[2025-05-29 03:49] LABS: BASOPHILS ABSOLUTE AUTO 0.01 K/mm3 (0.00-0.23); BASOPHILS PERCENT AUTO 0 % (0-2); EOSINOPHILS ABSOLUTE AUTO 0.04 K/mm3 (0.00-0.68); EOSINOPHILS PERCENT AUTO 0 % (0-6); Hematocrit 42.3 % (37.0-53.0); Hemoglobin 13.1 g/dL (13.5-17.5); IMMATURE GRAN ABSOLUTE AUTO 0.07 K/mm3 (0.00-0.10); IMMATURE GRAN PERCENT AUTO 1 % (0-1); LYMPHOCYTES ABSOLUTE AUTO 1.80 K/mm3 (0.84-5.20); LYMPHOCYTES PERCENT AUTO 13 % (21-46); MONOCYTES ABSOLUTE AUTO 0.99 K/mm3 (0.16-1.47); MONOCYTES PERCENT AUTO 7 % (4-13); Mean Corpuscular HGB Conc 31.0 g/dL (31.5-36.5); Mean Corpuscular Volume 93 fL (80-100); NEUTROPHILS ABSOLUTE AUTO 10.82 K/mm3 (1.96-9.15); NEUTROPHILS PERCENT AUTO 79 % (41-73); NRBC ABSOLUTE 0.00 K/mm3 (0.00-0.02); NRBC Auto 0.0 /100 WBC (0.0-0.2); Platelet Count 268 K/mm3 (150-400); RDW Coefficient Variation 14.3 % (11.7-14.2); RDW Standard Deviation 48.7 fL (35.1-46.3)
[2025-05-29 03:55] VITALS: BP 141/83
--- NOTE | 2025-05-29 04:02 | NUR ---
ASSUMED CARE OF PT AT 1900. PT IS AXOX4 AND ABLE TO USE CALL LIGHT APPROPRIATELY. ON 2.5L NC TO KEEP O2>92%. RIGHT CHEST TUBE IN PLACE HOOKED TO WATER SEAL. MINIMUM CHEST TUBE OUTPUT. NO COMPLAINTS OF SOB. PAIN MEDS ADMINISTERED NEEDED FOR PAIN AT CHEST TUBE INSERTION SITE. ALL VSS. BED IN LOWEST POSITION AND CALL LIGHT WITHIN REACH.
[2025-05-29 04:21] LABS: Alanine Aminotransfer (ALT/SGP 16.0 U/L (12-78); Albumin, Blood 2.9 g/dL (3.4-5.0); Albumin/Globulin Ratio 0.9 (0.8-1.8); Anion Gap 8.0 mmol/L (3-11); Aspartate Aminotrans (AST/SGOT 7.0 U/L (12-37); Bilirubin, Total 0.3 mg/dL (0.1-1.0); Blood Urea Nitrogen 29.0 mg/dL (8-24); CO2, Blood 31.0 mmol/L (21-32); Calcium, Blood 8.8 mg/dL (8.5-10.1); Chloride, Blood 103.0 mmol/L (98-108); Creatinine, Blood 0.73 mg/dL (0.60-1.20); Globulin, Blood 3.3 g/dL (2.2-4.0); Glucose, Blood 155.0 mg/dL (70-99); Potassium, Blood 3.9 mmol/L (3.5-5.5); Sodium, Blood 138.0 mmol/L (136-145); Total Protein, Blood 6.2 g/dL (6.4-8.2)
[2025-05-29 07:25] VITALS: BP 145/82
--- NOTE | 2025-05-29 08:55 | NUR ---
AM NOTE: PATIENT ALERT AND ORIENTED. MOVING ALL EXTREMITIES IN BED. COMPLAINS OF CHRONIC ARM AND LEG PAIN. CHRONIC BUE TREMOR. BEDREST AT THIS TIME. USING CALL LIGHT FOR NEEDS. Q2 REPOSITIONING PATIENT ALLOWS. PATIENT RE-EDUCATED ON PRESSURE INJURY PREVENTION AND BOWEL CARE. TELE SHOWING SR WITH HR 70-90'S. DENIES CHEST PAIN/PRESSURE/PALPITATIONS. SBP 140'S. NO EDEMA NOTED. IV SALINE LOCKED. ON 2.5L NASAL CANNULA SATING 93%. DENIES SOB. CONTINUES TO STATE HIS BREATHING HAS IMPROVED. RIGHT ANTERIOR PIGTAIL CHEST TUBE IN PLACE TO WATER SEAL. DRESSING C/D/I. NO LEAKS NOTED. DRAINAGE IS SEROSANG. INTERMIT CHEST TUBE SITE PAIN, MEDICATED PER EMAR. OCCASIONAL NONPRODUCTIVE COUGH. CHEST XRAY COMPLETED THIS MORNING, RESULTS PENDING. BOWEL TONES PRESENT. DENIES ABDOMINAL PAIN/NAUSEA. REFUSED MIRALAX THIS MORNING. TOLERATING DIET WITHOUT ISSUES. ACHS BLOOD SUGARS. USING URINAL TO VOID. ATTENDS IN PLACE. SKIN WITH SCATTERED BRUISING TO ARMS. LEFT TRICEP SCAB WITH BANDAID IN PLACE. CALL LIGHT IN REACH. DENIES NEEDS AT THIS TIME. DR. TERRELL TO BEDSIDE THIS AM, THIS RN PRESENT FOR MD ROUNDING. NO NEW ORDERS FOR THIS RN TO PLACE.
--- NOTE | 2025-05-29 09:49 | NUR ---
DR. CRAWFORD TO BEDSIDE AND THIS RN PRESENT FOR MD ROUNDING. PLAN TO CONTINUE CHEST TUBE AND PLAN FOR REASSESSMENT TOMORROW WITH DR. WARREN. THIS RN DISCUSSED CHEST TUBE DRESSING WITH DR. CRAWFORD. PLAN FOR THIS RN TO REINFORCE DRESSING. PLACEMENT OF GAUZE AND STATLOCK ARE SUFFICIENT AT THIS TIME. THIS RN REINFORCED DRESSING WITH TEGADERM. CALLED AND UPDATED ON PLAN. DR. TERRELL UPDATED WELL.
[2025-05-29 11:21] VITALS: BP 151/77
[2025-05-29 15:16] VITALS: BP 139/79
--- NOTE | 2025-05-29 15:25 | NUR ---
PATIENT TO CT AT THIS TIME.
--- NOTE | 2025-05-29 17:26 | NUR ---
SHIFT SUMMARY: NO ACUTE CHANGES THROUGHOUT SHIFT. CT COMPLETED. CHEST TUBE CONTINUES TO DRAIN AND TOTAL OUTPUT WAS 33ML OF SEROSANG FLUID THIS SHIFT. CHEST TUBE DRESSING REMAINS C/D/I. NO AIR LEAKS NOTED. REMAINS ON TELE SHOWING SR WITH HR 70-90'S. DENIES CHEST PAIN/PRESSURE. VITALS STABLE. ON 2.5L NASAL CANNULA. TOLERATING PO DIET. MEDICATED THIS SHIFT FOR CHRONIC ARM/LEG PAIN. TO BEDSIDE THIS AFTERNOON AND UPDATED ON PLAN OF CARE. CALL LIGHT IN REACH. DENIES NEEDS AT THIS TIME.
[2025-05-29 19:46] VITALS: BP 160/71
[2025-05-29 23:24] VITALS: BP 149/72
[2025-05-30 03:57] VITALS: BP 153/80
--- NOTE | 2025-05-30 06:17 | NUR ---
SHIFT SUMMARY PT A&O X4, ABLE TO MAKE NEEDS KNOWN, MOVING ALL EXTREMITIES WITH PURPOSE/ BUE TREMORS THAT PT REPORTS IS BASELINE, CALLS APPROPRIATELY. CONTINUOUS SPO2, SPO2 GREATER THAN 92% ON 2.5L O2 VIA NC/ PT BASELINE IS 2-4L O2 VIA NC, NO SIGNS OF RESPIRATORY DISTRESS NOTED, CHEST TUBE SECURE/DRAINING SEROSANGUANIUS FLUID TO WATER SEAL.. CONTINUOUS TELE MONITORING, SINUS 70-80 S, BP STABLE WITH MAP GREATER THAN 65, CAP REFILL WNL, PULSES PRESENT T/O, PT DENIES CHEST P/P T/O THIS SHIFT. BOWEL TONES PRESENT IN ALL 4Q. USING URINAL IND, URINE YELLOW IN COLOR. PT REPORTING CHRONIC PAIN TO ARMS/LEGS AND REPORTING PAIN TO AREA OF CHEST TUBE. MEDICATED PER ORDERS BED LOWEST POSITION, CALL LIGHT IN REACH, AWAITING TO GIVE REPORT TO ONCOMING RN.
[2025-05-30 07:29] VITALS: BP 150/70
[2025-05-30] MEDS ORDERED: FentaNYL Citrate 50 MCG/ML 2 ML Injection IV PRN (10:00)
--- NOTE | 2025-05-30 10:34 | NUR ---
AM NOTE: PATIENT ALERT AND ORIENTED X4. COMPLAINS OF EXTREMITY PAIN WELL CHEST TUBE INSERTION SITE PAIN. MOVING ALL EXTREMITIES. PATIENT OFTEN REFUSING REPOSITIONING. EDUCATED ON PRESSURE INJURY PREVENTION. TELE SHOWING SINUS RHYTHM WITH HR 70-90'S. DENIES CHEST PAIN/PRESSURE/PALPITATIONS. SBP 150. NO EDEMA NOTED. IV SALINE LOCKED. ON 2.5L NASAL CANNULA SATING MID 90'S. CHEST TUBE REMOVED THIS MORNING BY DR. WARREN. GAUZE WITH TEGADERM IN PLACE. EVEN AND UNLABORED RESPIRATIONS. LUNG SOUNDS CLEAR AND DIMINSHED IN BASES. DENIES SOB. BOWEL TONES PRESENT. DENIES ABDOMINAL PAIN/NAUSEA. TOLERATING PO DIET WITHOUT ISSUES. USING URINAL IND. PATIENT REFUSED MIRALAX AGAIN THIS MORNING AND EDUCATED ON BOWEL CARE. SKIN FRAGILE AND DRY WITH SCATTERED BRUISING. THIS RN SPOKE WITH ON PHONE AND PROVIDED UPDATE WITH PATIENT APPROVAL. CALL LIGHT IN REACH. DENIES NEEDS AT THIS TIME.
[2025-05-30 11:16] VITALS: BP 156/72
[2025-05-30 15:40] VITALS: BP 135/70; BP 139/70
--- NOTE | 2025-05-30 18:07 | NUR ---
DISCHARGE: NO ACUTE CHANGES. PATIENT REMAINS ALERT AND ORIENTED. RIGHT CHEST TUBE SITE WITH DRESSING IN PLACE. DRESSING WITH MINIMAL DRAINAGE. ON 2.5L NASAL CANNULA SATING MID 90'S, NEEDING 4L WITH MOVEMENT IN BED OR UP TO BSC. TELE CONTINUES TO SHOW SR WITH HR 70-80'S. LARGE BOWEL MOVEMENT THIS SHIFT. TOLERATING PO DIET WITH NO ISSUES. BED BATH COMPLETED. TO BEDSIDE AND UPDATED ON PLAN OF CARE.
[2025-05-30 19:39] VITALS: BP 150/86
[2025-05-31 00:51] VITALS: BP 163/77
[2025-05-31 04:58] VITALS: BP 139/109
--- NOTE | 2025-05-31 06:49 | NUR ---
NOC SHIFT SUMMARY PT IS A+OX4 ABLE TO MAKE NEEDS KNOWN, USES CALL LIGHT. VOIDING IN URINAL INDEPENT. R CHEST TUBE SITE W/ DRESSING IN PLACE NO NEW DRAINAGE NOTED. 0N 2-3L NC T/O THE NIGHT BREATHING EVEN AND UNLABORED. DENIES SOB. TELE IN PLACE SHOWING SR 70'S-90'S. NO ACUTE EVENTS OR COMPLAINTS OVER NIGHT. BED IN LOW, CALL LIGHT IN REACH. REPORT GIVEN TO DAYSHIFT RN
[2025-05-31 09:25] VITALS: BP 145/94
--- NOTE | 2025-05-31 17:04 | NUR ---
SHIFT SUMMARY PATIENT HAS BEEN ALERT AND ORIENTED X4 T/O SHIFT. VITALS SIGNS STABLE. SBP 140'S. HR HAS BEEN 80'S SR, 02 SATS >94% ON 2-4L NC DESAT TO 80'S WITH EXERTION 02 TITRATED TO NEED. SBA TO BEDSIDE COMMODE. ELIMINATION NEEDS ADEQUATE. CEST TUBE REMOVED YESTERDAY, DRESSING MOSTLY CLEAN WITH SCANT DRAINAGE. PROVIDER AWARE, PLAN TO REMOVE DRESSING ON 06/01. STATUS CHANGE TO MED WITHOUT TELE PER PROVIDER. PATIENT CAN REPOSITION IN BED, ASSISTANCE PROVIDED WHEN NEEDED. ACHS BLOOD SUGARS DC'D PER PROVIDER. PATIENT WAS EDUCATED ON INCENTIVE SPIROMETER USING TEACH BACK TO VERIFY PATIENT UNDERSTANDING. PLAN TO DISCHARGE BACK TO [facility] 06/01 PER PROVIDER. DENIES CHEST PAIN/PRESSURE/SOB AT THIS TIME. PATIENT RESTING COMFORTABLY IN BED IN LOWEST POSITION WITH CALL LIGHT IN REACH.
[2025-05-31 17:16] VITALS: BP 152/64
[2025-05-31 19:45] VITALS: BP 134/102
--- NOTE | 2025-05-31 20:38 | NUR ---
TRANSFER OF CARE PT A&O X4, CALM, COOPERATIVE TO CARE. PT MEDICAL WITH NO TELE. SBP STABLE. HR IN THE THE 80'S ON NIBP. PT DENIES CP/PRESSURE, NUMB/TINGLING. SpO2 >92% ON 3L VIA NC, HE DENIED ANY SOB. PT S/P CT REMOVAL ON 05/30. GAUZE AND TEGADERM IN PLACE, C/D/I. PT REPORTS SOME SORENESS TO SITE, MEDICATING PER EMAR. PT HAD ROOM AVAILABLE UPSTAIRS. REPORT GIVEN TO MEDICAL FLOOR RN. PT LEFT PCU VIA BED WITH PCT.
--- NOTE | 2025-05-31 20:40 | NUR ---
Assumed Care Received report from Sera PCU Nurse around 2033. Patient arrived w/ tech and settled to room by Break RN Tisha Nelson, Tech Tisha Weaver, and SERVICE SPECIALIST Rosmery Francisco. Upon encounter around 2099, patient AOx4 and able to make needs known. Allowed this RN to perform shift assessment. Some SS drainage approx a quarter size noted to the 2x2 gauze dressing to right upper chest wall which has been secured w/ tegaderm. Denies pain in that area. Declined to wear CPAP tonight, on 4L O2 NC. Pt claimed to have had a bm today and one yesterday in PCU via commode. Addressed pt needs. Bed in lowest position. Call light in reach. Anticipate d/c tomorrow back to [facility] once PT eval has been done.
--- NOTE | 2025-05-31 21:48 | NUR ---
PAIN MED RE-ASSESSMENT Pain medication given 1857 in PCU. Patient arrived to Medical Floor around 2039, almost two hours after med was given. Informed and asked previous RN Sera Campoverde about pain re-assessment. Sera verbalized that she will chart on re-assessment of patient's pain as patient was still in PCU when it was due.
[2025-06-01 03:31] VITALS: BP 133/78
--- NOTE | 2025-06-01 04:19 | NUR ---
Shift Summary AOx4. Declined use of CPAP tonight w/ preference for O2 via NC. Kept 4L on t/o night. Following commands, tolerating PO intake. Dressing to anterior RUCW remains unchanged. Independent w/urinal at the bedside. Uneventful night.
[2025-06-01] MEDS ORDERED: NS 250 ML IV PRN (05:25)
[2025-06-01 07:41] VITALS: BP 147/77
--- NOTE | 2025-06-01 10:39 | NUR ---
Pt has been discharged back to [facility], changed dressing to right chest wall, as dressing had a scant amount of drainage, piv removed intact, called Daryl at [facility] with report, pt continues on 4 liters 02 via n/c, left via wheelchair with transport in attendence,and family member, with all his belongings.
== END 2025-06-01 10:33 | DRG 871 ==
LOC: ER 03:48 → ERHOLD 05:41 → PCU 05:41 → MEDS 05-31 20:43
PROVIDERS: Emergency Medicine; Internal Medicine; ADMIT Internal Medicine
PROC: 5A09357 Assistance with Respiratory Ventilation, Less than 24 Consecutive Hours, Continuous Positive Airway Pressure (ICD-10-PCS; principal; 2025-05-26)
PROC: 0W9930Z Drainage of Right Pleural Cavity with Drainage Device, Percutaneous Approach (ICD-10-PCS; 2025-05-26)
PROC: 3E03329 Introduction of Other Anti-infective into Peripheral Vein, Percutaneous Approach (ICD-10-PCS; 2025-05-26)
PROC: 3E02340 Introduction of Influenza Vaccine into Muscle, Percutaneous Approach (ICD-10-PCS; 2025-05-26)
DX: A41.59 Other Gram-negative sepsis (principal); J15.69 Pneumonia due to other Gram-negative bacteria; J96.21 Acute and chronic respiratory failure with hypoxia; J96.22 Acute and chronic respiratory failure with hypercapnia; J44.1 Chronic obstructive pulmonary disease with (acute) exacerbation; J44.0 Chronic obstructive pulmonary disease with (acute) lower respiratory infection; J90 Pleural effusion, not elsewhere classified; J93.83 Other pneumothorax; J98.11 Atelectasis; I10 Essential (primary) hypertension; K21.9 Gastro-esophageal reflux disease without esophagitis; E78.5 Hyperlipidemia, unspecified; U09.9 Post COVID-19 condition, unspecified; E11.65 Type 2 diabetes mellitus with hyperglycemia; N40.0 Benign prostatic hyperplasia without lower urinary tract symptoms; G89.4 Chronic pain syndrome; Z23 Encounter for immunization; Z74.01 Bed confinement status; Z86.74 Personal history of sudden cardiac arrest; Z79.82 Long term (current) use of aspirin; Z79.899 Other long term (current) drug therapy; Z79.51 Long term (current) use of inhaled steroids; Z87.891 Personal history of nicotine dependence; Z87.01 Personal history of pneumonia (recurrent)
CPT/HCPCS: 32555; 36415; 71045; 71046; 71250; 80048; 80053; 81001; 82042; 82803; 82947; 83036; 83615; 83880; 84157; 84484; 85025; 85027; 85379; 85610; 87070; 87205; 87637; 88108; 88305; 89051; 93005; 93010; 93306; 94640; 94660; 94664; 94760; 94762; 96374; 99285-25; A9270; J0456; J0696; J1650; J2060; J2919; J3010; J7050